=== PATIENT | female | born 1970 | race Caucasian/White ===

== ENCOUNTER 2019-11-28 07:10 | Outpatient (CLI) | payer OTHER, SELFPAY ==
[2019-11-28 07:29] LABS: Basophils Absolute Auto 0.1 K/mm3 (0.0-0.1); Basophils Percent Auto 0.9 % (0.2-1.2); Eosinophils Absolute Auto 0.1 K/mm3 (0-0.3); Eosinophils Percent Auto 1.7 % (0-4.4); Hematocrit 42.7 % (37.0-47.0); Hemoglobin 14.8 g/dL (12.0-15.0); Immature Granulocyte Absolute 0.02 K/mm3 (0.00-0.031); Immature Granulocyte Percent A 0.4 % (0-0.5); Lymphocytes Absolute Auto 1.69 K/mm3 (0.9-3.2); Lymphocytes Percent Auto 31.1 % (18.3-44.2); Mean Corpuscular HGB Conc 34.7 g/dl (32-36); Mean Corpuscular Hemoglobin 30.2 pg (26-34); Mean Corpuscular Volume 87.1 fl (80-100); Mean Platelet Volume 8.8 fl (7.4-10.4); Monocytes Absolute Auto 0.3 K/mm3 (0.1-0.6); Monocytes Percent Auto 6.3 % (2.6-8.5); Neutrophils Absolute Auto 3.3 K/mm3 (1.3-6.7); Neutrophils Percent Auto 59.6 % (45.5-73.1); Platelet Count Result 152 k/mm3 (150-375); Red Cell Distribution Width 12.3 % (11.5-14.5); White Blood Count 5.4 K/mm3 (4.5-10.0)
[2019-11-28 08:01] LABS: Alanine Aminotransferase 28 U/L (4-35); Albumin Level 4.2 g/dL (3.5-5.1); Alkaline Phosphatase 99 U/L (38-126); Aspartate Amino Transferase 30 U/L (14-36); Bilirubin,Total 1.3 mg/dL (0.2-1.3); Blood Urea Nitrogen 13 mg/dL (7-17); Carbon Dioxide 25 mmol/L (22-30); Chloride 106 mmol/L (98-107); Cholesterol 174 mg/dL (0-200); Estimated Glomerular Filt Rate 53; Glucose 111 mg/dL (65-105); HDL Direct 34 mg/dL; Potassium 4.2 mmol/L (3.4-5.0); Sodium 138 mmol/L (137-145); Triglycerides 285 mg/dL (<150)
[2019-11-28 08:12] LABS: LDL Cholesterol Direct 99 mg/dL
[2019-11-28 10:01] LABS: Free T4 Free Thyroxine 0.88 ng/mL (0.78-2.19)
== END 2019-11-28 07:11 | disposition home or self-care (01) ==
LOC: ANHLAB 07:13
PROVIDERS: PCP Internal Medicine; Visit Provider Internal Medicine
DX: E78.00 Pure hypercholesterolemia, unspecified (principal)
CPT/HCPCS: 36415; 80053; 80061; 84439; 84443; 85025

== ENCOUNTER 2020-01-08 09:52 | Outpatient (CLI) | payer OTHER, SELFPAY ==
[2020-01-08 10:56] LABS: Add Urine Microscopic? YES; Appearance Urine Clear (Clear); Bilirubin Urine Negative (Negative); Blood Urine Negative (Negative); Color Urine Yellow (Yellow); Glucose Urine UA Negative (Negative); Ketones Urine Negative (Negative); Leukocyte Esterase Ur Trace LEU/UL (Negative); Mucus Urine Rare /lpf; Nitrate Urine Negative (Negative); Protein Urine Negative (Negative); RBC Urine 0-2 /hpf (0-2); Specific Grav Ur 1.019 (1.001-1.035); Squamous Epithelial Cell Urine Rare /hpf (Few); Urobilinogen Urine Negative mg/dL (<2.0); WBC Urine 0-3 /hpf
== END 2020-01-08 09:53 | disposition home or self-care (01) ==
PROVIDERS: PCP Internal Medicine; Visit Provider Internal Medicine
DX: R30.9 Painful micturition, unspecified (principal)
CPT/HCPCS: 81001

== ENCOUNTER 2020-06-01 14:44 | Outpatient (CLI) | payer OTHER, SELFPAY ==
--- NOTE | ~2020-06-01 | MM_ITS ---
EXAMINATION: MM screening [facility] w julio HISTORY: Screening TECHNIQUE: Craniocaudal and mediolateral oblique 3-D tomosynthesis images were obtained and synthetic 2-D images were generated. CAD analysis was submitted and interpreted. COMPARISON: Comparison to multiple prior studies sequentially, with oldest reviewed study dated 06/29. BREAST PARENCHYMAL COMPOSITION: There are scattered areas of fibroglandular density. FINDINGS: There is a developing mass in the upper outer quadrant of the left breast measuring 5 mm. T here are stable benign-appearing bilateral breast masses otherwise. No suspicious calcifications or a rchitectural distortion. IMPRESSION: 1. Developing 5 mm left breast mass, upper outer quadrant. 2. Additional mammographic views and possible breast ultrasound are recommended. BI-RADS Category 0: Incomplete: Needs additional imaging evaluation. Reviewed, dictated and finalized at location A. IMPRESSION: 1. Developing 5 mm left breast mass, upper outer quadrant. 2. Additional mammographic views and possible breast ultrasound are recommended . BI-RADS Category 0: Incomplete: Needs additional imaging evaluation.
== END 2020-06-01 14:45 | disposition home or self-care (01) ==
LOC: ANHIMG 14:46
PROVIDERS: PCP Internal Medicine; Visit Provider Obstetrics & Gynecology
DX: Z12.31 Encounter for screening mammogram for malignant neoplasm of breast (principal); N63.21 Unspecified lump in the left breast, upper outer quadrant
CPT/HCPCS: 77063; 77067

== ENCOUNTER 2020-06-08 13:32 | Outpatient (CLI) | payer OTHER, SELFPAY ==
--- NOTE | ~2020-06-08 | MMUS_ITS ---
EXAMINATION: MM diagnostic mammo unilat LT, US breast LT limited HISTORY: Follow-up left breast mass TECHNIQUE: Additional 3-D tomosynthesis images of the left breast were performed and synthetic 2-D im ages were generated. CAD analysis was submitted and interpreted. High resolution limited left breast ultrasound was performed. COMPARISON: Comparison to multiple prior studies sequentially, with oldest reviewed study dated 06/29. BREAST PARENCHYMAL COMPOSITION: Breast composed of scattered areas of fibroglandular density. FINDINGS: MAMMOGRAPHIC FINDINGS: 5 mm circumscribed radiolucent mass in the upper outer quadrant of the left breast. No architectural distortion or suspicious calcifications. ULTRASOUND: Limited left breast ultrasound: Normal heterogeneous echotexture without focal solid or cystic mass. IMPRESSION: 1. Probable benign left breast mass. No definite sonographic correlate identified. 2. Recommend 6 month follow-up diagnostic left mammogram. BI-RADS category 3, probably benign findings. Reviewed, dictated and finalized at location A. IMPRESSION: 1. Probable benign left breast mass. No definite sonographic correlate identifi ed. 2. Recommend 6 month follow-up diagnostic left mammogram. BI-RADS category 3, probably benign findings.
== END 2020-06-08 13:33 | disposition home or self-care (01) ==
LOC: ANHIMG 13:33
PROVIDERS: PCP Internal Medicine; Visit Provider Obstetrics & Gynecology
DX: R92.8 Other abnormal and inconclusive findings on diagnostic imaging of breast (principal)
CPT/HCPCS: 76642; 77065

== ENCOUNTER 2020-06-20 10:35 | Outpatient (CLI) | payer OTHER, SELFPAY ==
[2020-06-20 11:01] LABS: Basophils Percent Auto 0.7 % (0.2-1.2); Eosinophils Absolute Auto 0.1 K/mm3 (0-0.3); Eosinophils Percent Auto 1.5 % (0-4.4); Hematocrit 42.5 % (37.0-47.0); Hemoglobin 15.1 g/dL (12.0-15.0); Immature Granulocyte Absolute 0.02 K/mm3 (0.00-0.031); Immature Granulocyte Percent A 0.3 % (0-0.5); Immature Platelet Fraction Pct 1.2 % (0.9-11.2); Lymphocytes Absolute Auto 1.63 K/mm3 (0.9-3.2); Lymphocytes Percent Auto 27.5 % (18.3-44.2); Mean Corpuscular HGB Conc 35.5 g/dl (32-36); Mean Corpuscular Hemoglobin 31.3 pg (26-34); Mean Corpuscular Volume 88.2 fl (80-100); Mean Platelet Volume 8.8 fl (7.4-10.4); Monocytes Absolute Auto 0.4 K/mm3 (0.1-0.6); Monocytes Percent Auto 6.9 % (2.6-8.5); Neutrophils Absolute Auto 3.7 K/mm3 (1.3-6.7); Neutrophils Percent Auto 63.1 % (45.5-73.1); Platelet Count Result 167 k/mm3 (150-375); Red Blood Count 4.82 M/mm3 (4.2-5.4); Red Cell Distribution Width 12.1 % (11.5-14.5); White Blood Count 5.9 K/mm3 (4.5-10.0)
[2020-06-20 11:06] LABS: Alanine Aminotransferase 26 U/L (4-35); Albumin Level 4.2 g/dL (3.5-5.1); Alkaline Phosphatase 96 U/L (38-126); Anion Gap 10 mmol/L (8-16); Aspartate Amino Transferase 26 U/L (14-36); Bilirubin,Total 1.4 mg/dL (0.2-1.3); Blood Urea Nitrogen 11 mg/dL (7-17); Calcium 8.9 mg/dL (8.4-10.2); Carbon Dioxide 24 mmol/L (22-30); Chloride 106 mmol/L (98-107); Cholesterol 178 mg/dL (0-200); Estimated Glomerular Filt Rate 53; Glucose 105 mg/dL (65-105); HDL Direct 32 mg/dL; Potassium 4.1 mmol/L (3.4-5.0); Sodium 140 mmol/L (137-145); Triglycerides 311 mg/dL (<150)
[2020-06-20 11:17] LABS: LDL Cholesterol Direct 98 mg/dL
[2020-06-20 11:36] LABS: Thyroid Stimulating Hormone 0.929 uIU/mL (0.465-4.680)
[2020-06-20 11:43] LABS: Free T4 Free Thyroxine 0.85 ng/mL (0.78-2.19)
== END 2020-06-20 10:36 | disposition home or self-care (01) ==
PROVIDERS: PCP Internal Medicine; Visit Provider Internal Medicine
DX: E78.00 Pure hypercholesterolemia, unspecified (principal)
CPT/HCPCS: 36415; 80053; 80061; 84439; 84443; 85025; 85055

== ENCOUNTER 2021-09-14 07:14 | Outpatient (CLI) | payer BC, SELFPAY ==
[2021-09-14 08:07] LABS: Glucose Fasting 130 mg/dL
[2021-09-17 03:21] LABS: Insulin Level Total 34.8 uIU/mL (<=19.6)
== END 2021-09-14 07:15 | disposition home or self-care (01) ==
PROVIDERS: PCP Internal Medicine; Visit Provider Internal Medicine
DX: E16.2 Hypoglycemia, unspecified (principal)
CPT/HCPCS: 36415; 82951; 82952; 83525

== ENCOUNTER 2022-08-05 10:39 | Emergency (ER) | payer BC, SELFPAY ==
[2022-08-05 10:48] LABS: Glucose Point of Care 80 mg/dl (65-105)
[2022-08-05 10:49] VITALS: BP 136/94; PULSE 90; RESP 16; TEMP 36.4; O2SAT 100
--- NOTE | 2022-08-05 11:02 | ED.RECABL ---
HPI - Recheck/Abnormal Lab/Rx General Chief Complaint: Recheck/Abnormal Lab/Rx Stated Complaint: glucose dropped 56-60 while working Time Seen by Provider: 08/05/22 10:53 History of Present Illness HPI narrative: 52-year-old female presents to the emergency room for evaluation of dizziness. Patient states that she has a pancreatic neoplasm for which she is followed by a GI physician over at [place]. Patient states she was diagnosed with this 6 months ago, and has been experiencing labile blood sugars. Patient states that she has frequently been experiencing drop in blood sugars. Patient states that she is normally able to manage this with juice or meal. States today the blood sugar dropped and she immediately became dizzy, which is different from the past where she gradually becomes dizzy and lightheaded. Related Data Allergies Allergy/AdvReac Type Severity Reaction Status Date / Time erythromycin base Allergy Mild Rash Verified 08/05/22 10:40 Sulfa (Sulfonamide Allergy Unknown Unknown Verified 08/05/22 10:40 Antibiotics) sulfanilamide Allergy Unknown Rash Verified 08/05/22 10:40 vancomycin Allergy Unknown Unknown Verified 08/05/22 10:40 Review of Systems Review of Systems: CONSTITUTIONAL: Denies fever, chills, or sweats. EYES: Denies visual changes, redness, or discharge. ENT: Denies rhinorrhea, congestion, sore throat, or otalgia. CARDIOVASCULAR: Denies chest pain, palpitations, or edema. RESPIRATORY: Denies cough or dyspnea. GASTROINTESTINAL: Denies abdominal pain, nausea, vomiting, or diarrhea. GENITOURINARY: Denies dysuria or hematuria. SKIN: Denies rash or itching. MUSCULOSKELETAL: Denies back pain, joint pain, or myalgia. NEUROLOGIC: Reports dizziness PSYCHIATRIC: Denies anxiety or depression. [facility] Family History Family History Other Family history of arthritis Family history of hypercholesterolemia Family history of kidney disease Social History Social History Smoking status: Never smoker Alcohol intake: current Exam Narrative: GENERAL: Well-appearing, well-nourished, no physical limitations, and in no acute distress. HEAD: Normocephalic, atraumatic. EYES: Conjunctivae normal, PERRLA and EOMI. CHEST: Clear to auscultation. No respiratory distress. No wheezes rales or rhonchi. HEART: Regular rate and rhythm. No murmur heard. Normal peripheral pulses. ABDOMEN: Soft, nontender, nondistended, normal active bowel sounds. EXTREMITIES: Normal range of motion. No edema. No clubbing or cyanosis SKIN: Warm, dry, no rash. No noted wounds NEURO: No focal deficits. Alert and oriented x3. MAEW. CN's II-XI intact bilaterally, normal gait PSYCH: Cooperative. Normal mood and affect. Course Vital Signs Vital signs: Vital Signs Temperature 36.4 C 08/05/22 10:49 Pulse Rate 90 08/05/22 10:49 Respiratory Rate 16 08/05/22 10:49 Blood Pressure 136/94 H 08/05/22 10:49 Pulse Oximetry 100 08/05/22 10:49 Oxygen Delivery Room Air 08/05/22 10:49 Temperature 36.4 C 08/05/22 10:49 Pulse Rate 90 08/05/22 10:49 Respiratory Rate 16 08/05/22 10:49 Blood Pressure 136/94 H 08/05/22 10:49 Pulse Oximetry 100 08/05/22 10:49 Oxygen Delivery Room Air 08/05/22 10:49 MDM - Recheck/Abnormal Lab/Rx Lab Data 08/05/22 11:36 08/05/22 11:36 Labs: Lab Results 08/05/22 08/05/22 08/05/22 Range/Units 10:45 11:36 11:36 WBC 7.4 (4.5-10.0) K/mm3 RBC 4.97 (4.2-5.4) M/mm3 Hgb 15.5 H (12.0-15.0) g/dL Hct 44.5 (37.0-47.0) % MCV 89.5 (80-100) fl MCH 31.2 (26-34) pg MCHC 34.8 (32-36) g/dl RDW 12.5 (11.5-14.5) % Plt Count 128 L (150-375) k/mm3 MPV 8.9 (7.4-10.4) fl Immature Gran % (Auto) 0.4 (0-0.5) % Neut % (Auto) 71.1 (45.5-73.1) % Lymph % (Auto) 20.4 (18.3-44.2) % [place] % (Auto) 6.0
[2022-08-05] MEDS: SODIUM CHLORIDE 0.9% IV 1,000 ML 999 ML IV CONT (11:24)
[2022-08-05 11:48] LABS: Basophils Absolute Auto 0.1 K/mm3 (0.0-0.1); Basophils Percent Auto 0.7 % (0.2-1.2); Eosinophils Absolute Auto 0.1 K/mm3 (0-0.3); Eosinophils Percent Auto 1.4 % (0-4.4); Hematocrit 44.5 % (37.0-47.0); Hemoglobin 15.5 g/dL (12.0-15.0); Immature Granulocyte Absolute 0.03 K/mm3 (0.00-0.031); Immature Granulocyte Percent A 0.4 % (0-0.5); Lymphocytes Percent Auto 20.4 % (18.3-44.2); Mean Corpuscular HGB Conc 34.8 g/dl (32-36); Mean Corpuscular Hemoglobin 31.2 pg (26-34); Mean Corpuscular Volume 89.5 fl (80-100); Mean Platelet Volume 8.9 fl (7.4-10.4); Monocytes Absolute Auto 0.4 K/mm3 (0.1-0.6); Neutrophils Absolute Auto 5.3 K/mm3 (1.3-6.7); Neutrophils Percent Auto 71.1 % (45.5-73.1); Platelet Count Result 128 k/mm3 (150-375); Red Blood Count 4.97 M/mm3 (4.2-5.4); Red Cell Distribution Width 12.5 % (11.5-14.5); White Blood Count 7.4 K/mm3 (4.5-10.0)
[2022-08-05 11:52] LABS: Alanine Aminotransferase 34 U/L (6-35); Albumin Level 4.9 g/dL (3.5-5.1); Alkaline Phosphatase 79 U/L (38-126); Anion Gap 9 mmol/L (8-16); Aspartate Amino Transferase 62 U/L (14-36); Bilirubin,Total 2.1 mg/dL (0.2-1.3); Blood Urea Nitrogen 17 mg/dL (7-17); Calcium 8.3 mg/dL (8.4-10.2); Carbon Dioxide 23 mmol/L (22-30); Chloride 104 mmol/L (98-107); Estimated CRCL calculation 59 ml/min; Estimated Glomerular Filt Rate 58; Glucose 101 mg/dL (65-110); Lipase 266 U/L (23-300); Potassium 4.8 mmol/L (3.4-5.0); Sodium 136 mmol/L (137-145)
[2022-08-05 12:51] LABS: Glucose Point of Care 95 mg/dl (65-105)
[2022-08-05 13:39] LABS: Hemoglobin A1C 5.4 % (<5.7)
== END 2022-08-05 13:20 | disposition home or self-care (01) ==
PROVIDERS: Emergency Provider Nurse Practitioner Family; PCP Internal Medicine
DX: E16.1 Other hypoglycemia (principal); D49.0 Neoplasm of unspecified behavior of digestive system
CPT/HCPCS: 36415; 80053; 82948; 83036; 83690; 85025; 96360; 96361; 99283; J7030

== ENCOUNTER 2023-01-30 12:57 | Inpatient (IN) | payer BC, SELFPAY ==
--- NOTE | ~2023-01-30 | XR_ITS ---
Supine portable view of the abdomen Clinical history: NG tube placement Findings: NG tube is in satisfactory position. Bowel gas pattern is nonspecific. No evidence for obst ruction or free air. No abnormal mass lesion or calcification is seen. Cholecystectomy clips noted. O sseous structures are intact. Impression: NG tube in place. Nonspecific bowel gas pattern. Reviewed, dictated and finalized at location . Impression: NG tube in place. Nonspecific bowel gas pattern.
--- NOTE | ~2023-01-30 | CT_ITS ---
EXAMINATION: CT abdomen pelvis w con DATE: 01/30/2023 15:34 INDICATION: Right lower quadrant abdominal pain. TECHNIQUE: Computed tomography (CT) of the abdomen and pelvis was performed with 100 mL Omnipaque 350 intravenous contrast. Automated exposure control and iterative reconstruction technique were employe d. The dose-length product was 732.52 mGy-cm. COMPARISON: CT abdomen and pelvis 10/07/2009 FINDINGS: The visualized portions of the lung bases demonstrate mild atelectasis. No pleural effusion . The heart size is normal. No pericardial effusion. The liver is normal. There are changes of cholec ystectomy. The spleen, pancreas, adrenal glands, and kidneys are normal. The appendix is fluid-filled with diameter of 9 mm. There is fat stranding adjacent to the tip of the appendix. There are no path ologically enlarged lymph nodes. There is no free intraperitoneal fluid. There is mild thoracic and l umbar spondylosis. IMPRESSION: 1. Acute appendicitis. Reviewed, dictated and finalized at location A. IMPRESSION: 1. Acute appendicitis.
--- NOTE | ~2023-01-30 | XR_ITS ---
EXAMINATION: XR abdomen/kub 1V INDICATION: Nausea and vomiting TECHNIQUE: Supine view of the abdomen is obtained. COMPARISON: 01/31/2023 FINDINGS: The bowel gas pattern is nonspecific. No dilated loops of bowel are evident. Skin verito a re noted. Surgical clips in the right upper quadrant are likely from prior cholecystectomy. No free i ntraperitoneal gas is identified. IMPRESSION: 1. Nonspecific bowel gas pattern. Reviewed, dictated and finalized at location A.
[2023-01-30 13:10] VITALS: BP 149/90; PULSE 83; RESP 17; TEMP 37.2; O2SAT 97
[2023-01-30 13:38] LABS: Basophils Percent Auto 0.5 % (0.2-1.2); Eosinophils Absolute Auto 0.1 K/mm3 (0-0.3); Eosinophils Percent Auto 1.5 % (0-4.4); Hematocrit 43.7 % (37.0-47.0); Hemoglobin 15.5 g/dL (12.0-15.0); Immature Granulocyte Absolute 0.02 K/mm3 (0.00-0.031); Immature Granulocyte Percent A 0.3 % (0-0.5); Lymphocytes Absolute Auto 1.41 K/mm3 (0.9-3.2); Lymphocytes Percent Auto 18.9 % (18.3-44.2); Mean Corpuscular HGB Conc 35.5 g/dl (32-36); Mean Corpuscular Hemoglobin 30.9 pg (26-34); Mean Corpuscular Volume 87.2 fl (80-100); Mean Platelet Volume 8.6 fl (7.4-10.4); Monocytes Absolute Auto 0.5 K/mm3 (0.1-0.6); Monocytes Percent Auto 6.4 % (2.6-8.5); Neutrophils Absolute Auto 5.4 K/mm3 (1.3-6.7); Neutrophils Percent Auto 72.4 % (45.5-73.1); Platelet Count Result 139 k/mm3 (150-375); Red Blood Count 5.01 M/mm3 (4.2-5.4); Red Cell Distribution Width 12.6 % (11.5-14.5); White Blood Count 7.5 K/mm3 (4.5-10.0)
[2023-01-30 13:46] LABS: Appearance Urine Clear (Clear); Bacteria Urine None Seen /hpf; Bilirubin Urine Negative (Negative); Blood Urine Negative (Negative); Color Urine Yellow (Yellow); Glucose Urine UA Negative (Negative); Ketones Urine Negative (Negative); Leukocyte Esterase Ur Trace LEU/UL (Negative); Nitrate Urine Negative (Negative); Non Pathogenic Casts 0-2; Protein Urine Negative (Negative); RBC Urine 0-2 /hpf (0-2); Specific Grav Ur 1.005 (1.001-1.035); Squamous Epithelial Cell Urine None seen /hpf (Few); Urobilinogen Urine 0.2 mg/dL (<2.0); WBC Urine 0-5 /hpf; pH Urine 6.5 (5.0-9.0)
[2023-01-30 13:52] LABS: Alanine Aminotransferase 30 U/L (6-35); Albumin Level 4.6 g/dL (3.5-5.1); Alkaline Phosphatase 111 U/L (38-126); Anion Gap 8 mmol/L (8-16); Aspartate Amino Transferase 26 U/L (14-36); Bilirubin,Total 1.4 mg/dL (0.2-1.3); Blood Urea Nitrogen 15 mg/dL (7-17); Calcium 8.8 mg/dL (8.4-10.2); Carbon Dioxide 25 mmol/L (22-30); Chloride 104 mmol/L (98-107); Estimated CRCL calculation 54 ml/min; Estimated Glomerular Filt Rate 52; Glucose 142 mg/dL (65-110); Lipase 109 U/L (23-300); Potassium 4.1 mmol/L (3.4-5.0); Sodium 137 mmol/L (137-145)
[2023-01-30 14:07] LABS: Add Urine Microscopic? YES
[2023-01-30 16:52] VITALS: BP 157/95; PULSE 91; RESP 18; O2SAT 100
[2023-01-30] MEDS: PIPERACILLN/TAZ 3.375GM/NS50ML 3.375 GM/50 ML BAG IVPB (17:28)
[2023-01-30] MEDS: MORPHINE SULFATE (*CRX) 4 MG/ML INJ IV PUSH ×2 (17:36→18:58)
--- NOTE | 2023-01-30 17:52 | ED.GENADULT ---
HPI - General Adult General Chief complaint: Abdominal Pain Stated complaint: mid abdominal pain radiating to back x 4 days Time Seen by Provider: 01/30/23 15:12 History of Present Illness HPI narrative: Patient is a 52-year-old female who presents ER with abdominal discomfort. Ongoing for 4 days and radiates into the back. Fullness has increased to more cramping. No alleviating factors. Worse with moving and bending. Has history of bowel obstruction in the past and is concerned she may have another 1. She has had normal bowel movements but has not had any flatus in the last couple days. Denies fevers or chills or sweats. No urinary symptoms. Related Data Home Medications Medication Instructions Recorded Confirmed simvastatin 10 mg tablet 10 mg PO HS 01/30/23 01/30/23 Allergies Allergy/AdvReac Type Severity Reaction Status Date / Time erythromycin base Allergy Mild Rash Verified 01/30/23 19:00 Sulfa (Sulfonamide Allergy Unknown Unknown Verified 01/30/23 19:00 Antibiotics) sulfanilamide Allergy Unknown Rash Verified 01/30/23 19:00 vancomycin Allergy Unknown Unknown Verified 01/30/23 19:00 Review of Systems Review of Systems: All systems reviewed & are unremarkable except as noted in HPI and below Constitutional: Constitutional: Denies chills and Denies fever(s) Gastrointestinal: Gastrointestinal: Reports abdominal pain, Denies constipation, Denies diarrhea, Denies nausea and Denies vomiting Genitourinary: Genitourinary: Denies dysuria, Denies pelvic pain and Denies urinary urgency PMFSH Past Medical History Medical History (Updated 01/30/23 @ 23:13 by Elmer Ortega MD) History of small bowel obstruction Hypercholesterolemia Surgical History Surgical History (Updated 01/30/23 @ 23:13 by Elmer Ortega MD) History of cholecystectomy Family History Family History Other Family history of arthritis Family history of hypercholesterolemia Family history of kidney disease Social History Social History Smoking status: Never smoker Alcohol intake: current Exam Narrative: GENERAL: Well-appearing, well-nourished, and in no acute distress. HEAD: Normocephalic, atraumatic. ENT: Mucous membranes moist. CHEST: Clear to auscultation. No respiratory distress. HEART: Regular rate and rhythm. Normal peripheral pulses. ABDOMEN: Soft, tender palpation right lower quadrant with guarding, nondistended, normal active bowel sounds. EXTREMITIES: Normal range of motion. No edema. SKIN: Warm, dry, no rash. NEURO: Alert and oriented x3. PSYCH: Normal mood and affect Course Course Emergency Course: Patient never sought operation at [place] as she has had significant complications from previous surgeries and is nervous she may not do well. After prolonged conversation with general surgery she is opted to stay here to receive IV antibiotics and an operative procedure tonight. Dr. Quintana will admit the patient to his service until she can go to the OR. Vital Signs Vital signs: Vital Signs Temperature 98.9 F 01/30/23 13:10 Pulse Rate 83 01/30/23 13:10 Respiratory Rate 17 01/30/23 13:10 Blood Pressure 149/90 H 01/30/23 13:10 Pulse Oximetry 97 01/30/23 13:10 Oxygen Delivery Room Air 01/30/23 13:10 Temperature 98.9 F 01/30/23 13:10 Pulse Rate 91 01/30/23 16:52 Respiratory Rate 18 01/30/23 16:52 Blood Pressure 157/95 H 01/30/23 16:52 Pulse Oximetry 100 01/30/23 16:52 Oxygen Delivery Room Air 01/30/23 13:10 Medical Decision Making Vital Signs Vital Signs: Vital Signs Temperature 98.9 F 01/30/23 13:10 Pulse Rate 83 01/30/23 13:10 Respiratory Rate 17 01/30/23 13:10 Blood Pressure 149/90 H 01/30/23 13:10 Pulse Oximetry 97 01/30/23 13:10 Oxygen Delivery Room Air 01/30/23 13:10 Temperature 98.9 F 01/30/23
[2023-01-30] MEDS: SODIUM CHLORIDE 0.9% IV 1,000 ML 150 ML IV CONT (18:25)
[2023-01-30] MEDS: LORazepam INJ (*CRX) 2 MG/ML VIAL 0.5 MG IV PUSH (18:25)
--- NOTE | 2023-01-30 18:49 | ADMGEN ---
This patient, Lacie Gaitan, was admitted to Medical Room 248-. Patient/family oriented to hospital policies and general routines including ID bracelet, bed and alarms, visiting hours, pain management, procedures, bathroom and other care routines, personal items, smoking policy, room service/diet, and visiting hours. Information on how to activate the Rapid Response Team has been discussed. Patient/Family are encouraged to report perceived risks to care and to ask questions if they do not understand what they are told or what they should do.
--- NOTE | 2023-01-30 19:10 | PC.NURSE ---
pt to surgery via bed
--- NOTE | 2023-01-30 19:29 | WPDANESEPPF ---
Anes - Initial Pre Proc Eval Procedure: Operation Date: 01/30/23 19:30 Proposed Procedures p Laparoscopic Appendectomy - Monique Quintana MD Date/Time: 01/30/23 19:29 Surgeon: Monique Quintana MD Pre Op Diagnosis: Appendicitis Patient Data Age: 52 Gender: F Height: 1.57 m Weight: 85.73 kg Last Vital Signs Temp 37.2 C 01/30/23 13:10 Pulse 91 01/30/23 16:52 Resp 18 01/30/23 16:52 BP 157/95 H 01/30/23 16:52 Pulse Ox 100 01/30/23 16:52 O2 Del Method Room Air 01/30/23 13:10 Allergies Allergy/AdvReac Type Severity Reaction Status Date / Time erythromycin base Allergy Mild Rash Verified 01/30/23 19:00 Sulfa (Sulfonamide Allergy Unknown Unknown Verified 01/30/23 19:00 Antibiotics) sulfanilamide Allergy Unknown Rash Verified 01/30/23 19:00 vancomycin Allergy Unknown Unknown Verified 01/30/23 19:00 Home Medications Medication Instructions Recorded Confirmed Type simvastatin 10 mg tablet 10 mg PO HS 01/30/23 01/30/23 History Laboratory Tests 01/30/23 01/30/23 13:18 13:22 WBC 7.5 K/mm3 (4.5-10.0) RBC 5.01 M/mm3 (4.2-5.4) Hgb 15.5 H g/dL (12.0-15.0) Hct 43.7 % (37.0-47.0) MCV 87.2 fl (80-100) MCH 30.9 pg (26-34) MCHC 35.5 g/dl (32-36) RDW 12.6 % (11.5-14.5) Plt Count 139 L k/mm3 (150-375) MPV 8.6 fl (7.4-10.4) Immature Gran % (Auto) 0.3 % (0-0.5) Neut % (Auto) 72.4 % (45.5-73.1) Lymph % (Auto) 18.9 % (18.3-44.2) [place] % (Auto) 6.4 % (2.6-8.5) Eos % (Auto) 1.5 % (0-4.4) Baso % (Auto) 0.5 % (0.2-1.2) Lymph # (Auto) 1.41 K/mm3 (0.9-3.2) [place] # (Auto) 0.5 K/mm3 (0.1-0.6) Eos # (Auto) 0.1 K/mm3 (0-0.3) Baso # (Auto) 0.0 K/mm3 (0.0-0.1) Abs Immat Gran (auto) 0.02 K/mm3 (0.00-0.031) Absolute Neuts (auto) 5.4 K/mm3 (1.3-6.7) Absolute Nucleated RBC 0.0 K/mm3 (0.0-0.012) Nucleated RBC % 0.0 % (0.0-0.2) Sodium 137 mmol/L (137-145) Potassium 4.1 mmol/L (3.4-5.0) Chloride 104 mmol/L (98-107) Carbon Dioxide 25 mmol/L (22-30) Anion Gap 8 mmol/L (8-16) BUN 15 mg/dL (7-17) Creatinine 1.10 H mg/dL (0.7-1.0) Estim Creat Clear Calc 54 ml/min Estimated GFR 52 L (59 - ) Glucose 142 H mg/dL (65-110) Calcium 8.8 mg/dL (8.4-10.2) Total Bilirubin 1.4 H mg/dL (0.2-1.3) AST 26 U/L (14-36) ALT 30 U/L (6-35) Alkaline Phosphatase 111 U/L (38-126) Total Protein 7.0 g/dL (6.3-8.2) Albumin 4.6 g/dL (3.5-5.1) Lipase 109 U/L (23-300) Urine Color Yellow (Yellow) Urine Appearance Clear (Clear) Urine pH 6.5 (5.0-9.0) Ur Specific [place] 1.005 (1.001-1.035) Urine Protein Negative mg/dL (Negative) Urine Glucose (UA) Negative mg/dL (Negative) Urine Ketones Negative mg/dL (Negative) Ur Blood (Man) Negative (Negative) Urine Nitrate Negative (Negative) Urine Bilirubin Negative (Negative) Urine Urobilinogen 0.2 mg/dL (<2.0) Leukocyte Esterase Rfl Trace H CANDIDA/UL (Negative) Urine RBC 0-2 /hpf (0-2) Urine WBC 0-5 /hpf Ur Squamous Epith Cells None seen /hpf (Few) Urine Bacteria None seen /hpf Urine Casts 0-2 Patient hx anesthesia problems: post op nausea/vomiting Family hx anesthesia problems: none Results Review: All pre-operative results and documents have been reviewed as part of the pre-operative evaluation. [facility] Family History Family History Other Family history of arthritis Family history of hypercholesterolemia Family history of kidney disease Social History Social History (Reviewed 08/05/22 @ 11:04 by Jacinto Pham
[2023-01-30] MEDS: SCOPOLAMINE 1.5 MG PATCH TRANSDERM (19:35)
[2023-01-30] MEDS: LACTATED RINGERS 1,000 ML 30 ML IV CONT ×3 (19:35→23:59)
--- NOTE | 2023-01-30 19:49 | PM.IMHP ---
H&P: HPI History of Present Illness Date/Time: 01/30/23 19:49 Chief Complaint: acute appendicitis Narrative: 52 y/o F presenting to ED c/o lower abd pain c radiation to her back over last 4 days. Pt reports pain has been progressively worsening and she has had decreased appetite. Pt reports normal bowel fxn. Pt denies any f/c, n/v. Pt has had extensive past surgical history from complications from cholecystectomy 20+ yrs ago. Review of Systems Constitutional: Constitutional: Reports as per HPI, Denies anorexia, Denies chills, Denies fever(s), Denies malaise, Reports poor appetite, Denies weakness, Denies weight gain and Denies weight loss Eyes: Eyes: Reports as per HPI and Reports no additional eye complaints ENT: Reports system reviewed and no additional complaints, except as documented Cardiovascular: Cardiovascular: Reports no additional cardiovascular complaints Respiratory: Respiratory: Reports no additional respiratory complaints Gastrointestinal: Gastrointestinal: Reports as per HPI, Reports abdominal pain, Reports GI cramping, Reports early satiety, Denies nausea and Denies vomiting Genitourinary: Genitourinary: Reports no additional female genitourinary complaints Musculoskeletal: Musculoskeletal: Reports no additional musculoskeletal complaints Integumentary/Breasts: Skin/Breast: Reports system reviewed and no additional complaints, except as docu Neurologic: Reports system reviewed and no additional complaints, except as documented Psychiatric: Psychiatric: Reports no additional psychiatric complaints Endocrine: Endocrine: Reports no additional endocrine complaints Hematologic/Lymphatic: Hematologic/Lymphatic: Reports no additional hematologic/lymphatic complaints Allergic/Immunologic: Allergic/Immunologic: Reports no additional allergic/immunologic complaints [facility] Family History Family History Other Family history of arthritis Family history of hypercholesterolemia Family history of kidney disease Social History Social History Smoking status: Never smoker Alcohol intake: current Comments PMH - hyperlipidemia, gangrenous cholecystitis PSH - multiple abd surgeries secondary to complicated cholecystectomy Meds Home Medications and Allergies Home Medications Medication Instructions Recorded Confirmed Type simvastatin 10 mg tablet 10 mg PO HS 01/30/23 01/30/23 History Allergies Allergy/AdvReac Type Severity Reaction Status Date / Time erythromycin base Allergy Mild Rash Verified 01/30/23 19:00 Sulfa (Sulfonamide Allergy Unknown Unknown Verified 01/30/23 19:00 Antibiotics) sulfanilamide Allergy Unknown Rash Verified 01/30/23 19:00 vancomycin Allergy Unknown Unknown Verified 01/30/23 19:00 Vital Signs Vital Signs - 24 hr 01/30/23 13:10 01/30/23 16:52 Temperature 37.2 C Pulse Rate 83 91 Respiratory Rate 17 18 Blood Pressure 149/90 H 157/95 H Pulse Oximetry 97 100 Oxygen Delivery Room Air Exam Const: General: cooperative, no acute distress, uncomfortable and obese HENMT: Head: normal to inspection, normocephalic and atraumatic Eyes: General: appearance normal, both eyes and all related structures Neck: Neck: normal visual inspection, full ROM and no lymphadenopathy Resp: Effort & Inspection: normal respiratory effort Auscultation: clear to auscultation bilaterally Cardio: Rate: regular rate Rhythm: regular rhythm GI: Inspection: normal to inspection and non-distended GI Palp: Yes abdominal tenderness, Yes Soft to palpation, Yes Tenderness to palpation present (GI), No Guarding due to palpation present (GI) and No Rigid due to palpation Skin: General skin exam: normal color and no rashes or lesions noted Neuro: General: patient oriented x3 and CN's II-XI intact bilaterally Extrem: General: normal to inspection and full ROM Psych: Appe
--- NOTE | 2023-01-30 19:58 | WPDHPUPDATE1 ---
History and Physical Update Update Date/Time: 01/30/23 19:58 History and Physical has been reviewed, including an updated exam of the patient. There are NO changes in the patient's condition. Risks, benefits, and alternatives have been discussed and questions answered. Patient agrees to proceed with procedure.
[2023-01-30] MEDS: BUPIVACAINE/EPINEPHRINE 0.5% 50 ML VIAL 30 ML INFILTRATE (20:11)
[2023-01-30 23:35] VITALS: BP 142/75; PULSE 81; RESP 16; TEMP 36.1; O2SAT 100
[2023-01-30 23:50] VITALS: BP 124/81; PULSE 122; RESP 20; O2SAT 100
[2023-01-30] MEDS: fentaNYL CITRATE INJ (*CRX) 100 MCG/2 ML VIAL 25 MCG IV PUSH (23:58)
[2023-01-31] VITALS (27 sets, daily range): BP systolic 116–162; BP diastolic 56–89; PULSE 85–110; RESP 12–21; TEMP 35.9–36.9; O2SAT 93–100; BMI 36.3; BMI 36.6
[2023-01-31] MEDS: fentaNYL CITRATE INJ (*CRX) 100 MCG/2 ML VIAL 25 MCG IV PUSH ×4 (00:02→00:24)
--- NOTE | 2023-01-31 00:06 | W.PM.PROC2 ---
Procedure Note - Detailed Date of Procedure 01/31/23 Pre-op Diagnosis Acute appendicitis Post-op Diagnosis Same ( acute appendicitis, hostile abdomen) Procedure Performed laparoscopic converted to open appendectomy, extensive lysis of adhesions of approximately 2-1/2 hours, small-bowel resection Surgeon Monique Quintana MD Balance Staff Inspector Jim Anesthesia General Indications 52-year-old female presenting to the emergency department with lower abdominal pain. Workup, including CT, was significant for acute appendicitis. The patient is noted to have an extensive abdominal surgical history and a long discussion was had with the patient and family regarding appendectomy versus conservative management. Decision was made to proceed with appendectomy. Findings Extremely hostile abdomen, unable to visualize anatomy during laparoscopic procedure so subsequently converted to open, devascularization of a small segment of small intestine during lysis of adhesions requiring small-bowel resection Description of Procedure The patient was taken to the operating room and placed in the supine position. After adequate induction of general anesthesia, the patient was prepped and draped in the normal sterile fashion. A time-out was then done to verify the patient's identity, as well as the procedure being performed. I began by making a 5 mm incision left mid abdomen, away from her previous incisions. I then placed a Veress needle into the peritoneal cavity and CO2 gas was insufflated. After adequate pneumoperitoneum was achieved, the Veress needle was removed a 5 mm Optiview trocar was placed under visualization. I then placed the laparoscopic through this trocar site and was unable to visualize any relevant anatomy. There was noted to be extensive adhesions to the anterior abdominal wall. Given this finding, I tried to place a port in the right mid abdomen. Again I entered the abdomen using an Optiview trocar under visualization. Unfortunately I was again unable to visualize any relevant anatomy as there was noted to be extensive adhesions on this side of the abdomen as well. At this point, conversion open procedure was decided. I began by making a incision in the right lower quadrant at McBurney's point. This was take taken down to the level of the fascia. Anterior fascia was opened and the abdominal muscles were split in the direction of its their fibers. I then opened the posterior fascia and gained access into the peritoneal cavity. There was noted to be a matted small bowel in this area and an extensive lysis of adhesions was done. I was unable to palpate the appendix or the cecum through this incision. The small intestine was noted to be very tethered and adhesed in this area. After approximately 1 hour of lysis of adhesions of the small bowel in this area, the decision was made to do a midline laparotomy. A midline laparotomy was done through her previous incision to gain access again into the peritoneal cavity. At this point I also called my partner, Dr. Derik Fernandez to assist me in this case given the complexity. Again upon entering the abdomen, this was noted to be very hostile as the small bowel was matted and adhesed to the anterior abdominal wall and pelvis. A extensive lysis of adhesions was then done to free up the small intestine, as we were unable to identify the cecum given the amount of adhesions of the small intestine. After approximately 90 additional minutes of lysis of adhesions, we had the entirety of the small bowel freed up. The cecum was noted to be in the right pelvis. Upon freeing up the cecum, we were able to identify the appendix. The appendix was noted to be injected inflamed and dilated, especially towards the tip. We dissected the appendix free of its adhesions and were able to create a window between the mesoappendix and the base of the appendix. At this point the mesoappendix was transected and tied off. The base of the appendix with the
[2023-01-31] MEDS: LACTATED RINGERS 1,000 ML 100 ML IV CONT ×2 (01:36→14:06)
--- NOTE | 2023-01-31 01:45 | PC.NURSE ---
0125 BACK TO ROOM PER BED. O2 2L NC, NG TO LEFT NARE
[2023-01-31] MEDS: ceFAZolin 1 GM/NS 50 ML 1 GM/50 ML BAG IVPB ×2 (02:20→10:30)
[2023-01-31] MEDS: MORPHINE SULFATE (*CRX) 4 MG/ML INJ IV PUSH ×3 (04:27→10:36)
[2023-01-31 06:11] LABS: Basophils Percent Auto 0.2 % (0.2-1.2); Hematocrit 41.4 % (37.0-47.0); Hemoglobin 14.2 g/dL (12.0-15.0); Immature Granulocyte Absolute 0.06 K/mm3 (0.00-0.031); Immature Granulocyte Percent A 0.4 % (0-0.5); Lymphocytes Absolute Auto 0.42 K/mm3 (0.9-3.2); Lymphocytes Percent Auto 2.6 % (18.3-44.2); Mean Corpuscular HGB Conc 34.3 g/dl (32-36); Mean Corpuscular Hemoglobin 30.5 pg (26-34); Mean Platelet Volume 8.9 fl (7.4-10.4); Monocytes Absolute Auto 1.1 K/mm3 (0.1-0.6); Monocytes Percent Auto 6.4 % (2.6-8.5); Neutrophils Absolute Auto 14.9 K/mm3 (1.3-6.7); Neutrophils Percent Auto 90.4 % (45.5-73.1); Platelet Count Result 155 k/mm3 (150-375); Red Blood Count 4.65 M/mm3 (4.2-5.4); Red Cell Distribution Width 12.9 % (11.5-14.5); White Blood Count 16.5 K/mm3 (4.5-10.0)
[2023-01-31 06:24] LABS: Anion Gap 9 mmol/L (8-16); Blood Urea Nitrogen 13 mg/dL (7-17); Calcium 8.1 mg/dL (8.4-10.2); Carbon Dioxide 25 mmol/L (22-30); Chloride 104 mmol/L (98-107); Estimated CRCL calculation 51 ml/min; Estimated Glomerular Filt Rate 47; Glucose 210 mg/dL (65-110); Potassium 4.9 mmol/L (3.4-5.0); Sodium 138 mmol/L (137-145)
--- NOTE | 2023-01-31 07:34 | P.PNAN_ITS ---
Anes - Prog Note Post-Op Date/Time: 01/31/23 07:34 Vital Signs: Last Vital Signs Temp 36.4 C L 01/31/23 04:23 Pulse 102 H 01/31/23 04:23 Resp 20 01/31/23 04:23 BP 135/74 01/31/23 04:23 Pulse Ox 99 01/31/23 04:23 O2 Del Method Nasal Cannula 01/31/23 01:49 O2 Flow Rate 2 01/31/23 01:49 Pain Score (VAS): 1 I/O: Intake & Output 01/30/23 01/30/23 01/31/23 15:59 23:59 07:59 Intake Total 1150 450 Output Total 610 Balance 1150 -160 Laboratory Tests 01/31/23 05:36 01/31/23 05:36 01/30/23 01/30/23 01/31/23 13:18 13:22 05:36 WBC 7.5 16.5 H RBC 5.01 4.65 Hgb 15.5 H 14.2 Hct 43.7 41.4 MCV 87.2 89.0 MCH 30.9 30.5 MCHC 35.5 34.3 RDW 12.6 12.9 Plt Count 139 L 155 MPV 8.6 8.9 Immature Gran % (Auto) 0.3 0.4 Neut % (Auto) 72.4 90.4 H Lymph % (Auto) 18.9 2.6 L [place] % (Auto) 6.4 6.4 Eos % (Auto) 1.5 0.0 Baso % (Auto) 0.5 0.2 Lymph # (Auto) 1.41 0.42 L [place] # (Auto) 0.5 1.1 H Eos # (Auto) 0.1 0.0 Baso # (Auto) 0.0 0.0 Abs Immat Gran (auto) 0.02 0.06 H Absolute Neuts (auto) 5.4 14.9 H Absolute Nucleated RBC 0.0 0.0 Nucleated RBC % 0.0 0.0 Sodium 137 138 Potassium 4.1 4.9 Chloride 104 104 Carbon Dioxide 25 25 Anion Gap 8 9 BUN 15 13 Creatinine 1.10 H 1.20 H Estim Creat Clear Calc 54 51 Estimated GFR 52 L 47 L Glucose 142 H 210 H Calcium 8.8 8.1 L Total Bilirubin 1.4 H AST 26 ALT 30 Alkaline Phosphatase 111 Total Protein 7.0 Albumin 4.6 Lipase 109 Urine Color Yellow Urine Appearance Clear Urine pH 6.5 Ur Specific [place] 1.005 Urine Protein Negative Urine Glucose (UA) Negative Urine Ketones Negative Ur Blood (Man) Negative Urine Nitrate Negative Urine Bilirubin Negative Urine Urobilinogen 0.2 Leukocyte Esterase Rfl Trace H Urine RBC 0-2 Urine WBC 0-5 Ur Squamous Epith Cells None seen Urine Bacteria None seen Urine Casts 0-2 Patient Feedback: Patient satisfied with anesthetic care.
--- NOTE | 2023-01-31 10:29 | PM.PNGS ---
Progress Note: A&P Assessment and Plan (1) Acute appendicitis: Code(s): K35.80 - Unspecified acute appendicitis Status: Acute Assessment and Plan: will start Morphine SUPERVISOR SPEECH, get PICC line and start TPN as there is anticipated prolonged ileus, cont NG decompression, encourage OOB/IS, will get PT/OT Subjective Subjective Date/Time Seen: 01/31/23 10:29 Interval history: c/o intense abd spasms, cramping Review of Systems Review of Systems: All systems reviewed & are unremarkable except as noted in HPI and below Exam Const: General: cooperative, acute distress moderate and uncomfortable Resp: Auscultation: clear to auscultation bilaterally Cardio: Rate: regular rate Rhythm: regular rhythm GI: Inspection: normal to inspection, distended and incision GI Palp: Yes abdominal tenderness, Yes Soft to palpation, Yes Tenderness to palpation present (GI), No Guarding due to palpation present (GI) and No Rigid due to palpation Objective Data Vital Signs Vital Signs: Vital Signs - 24 hr 01/30/23 13:10 01/30/23 16:52 01/30/23 23:35 Temperature 37.2 C 36.1 C L Pulse Rate 83 91 81 Respiratory Rate 17 18 16 Blood Pressure 149/90 H 157/95 H 142/75 H Pulse Oximetry 97 100 100 Oxygen Delivery Room Air Simple Face Mask Oxygen Flow Rate 8 01/30/23 23:50 01/31/23 00:06 01/31/23 00:20 Temperature Pulse Rate 122 H 101 H 110 H Respiratory Rate 20 14 16 Blood Pressure 124/81 146/89 H 162/79 H Pulse Oximetry 100 100 95 Oxygen Delivery Simple Face Mask Simple Face Mask Room Air Oxygen Flow Rate 8 8 01/31/23 00:35 01/31/23 00:50 01/31/23 01:05 Temperature Pulse Rate 109 H 106 H 103 H Respiratory Rate 15 14 12 Blood Pressure 147/77 H 142/75 H 140/82 Pulse Oximetry 96 93 99 Oxygen Delivery Room Air Room Air Nasal Cannula Oxygen Flow Rate 2 01/31/23 01:32 01/31/23 01:49 01/31/23 01:52 Temperature 36.3 C L 36.4 C Pulse Rate 100 98 Respiratory Rate 18 21 H Blood Pressure 144/74 H 117/61 Pulse Oximetry 99 99 100 Oxygen Delivery Nasal Cannula Oxygen Flow Rate 2 01/31/23 02:32 01/31/23 04:23 01/31/23 08:07 Temperature 36.4 C L 36.4 C L Pulse Rate 96 102 H Respiratory Rate 20 20 Blood Pressure 133/76 135/74 Pulse Oximetry 99 99 95 Oxygen Delivery Nasal Cannula Oxygen Flow Rate 3 01/31/23 08:59 01/31/23 09:01 Temperature 35.9 C L 35.9 C L Pulse Rate 91 91 Respiratory Rate 16 16 Blood Pressure 127/66 127/66 Pulse Oximetry 98 98 Oxygen Delivery Oxygen Flow Rate Intake/Output Intake/Output: Intake & Output 01/28/23 01/29/23 01/30/23 01/31/23 23:59 23:59 23:59 23:59 Intake Total 1150 450 Output Total 610 Balance 1150 -160 Meds/Results Medications: Active Medications Generic Name Dose Route Start Last Admin Trade Name Freq PRN Reason Stop Dose Admin Alvimopan 12 mg 02/01/23 09:00 Alvimopan 12 Mg Capsule PO 02/08/23 08:59 Q12HR JOHN Enoxaparin Sodium 40 mg 01/31/23 09:00 Enoxaparin 40 Mg/0.4 Ml Syringe SUB-Q DAILY JOHN Famotidine 20 mg 01/31/23 09:00 Famotidine 20 Mg/2 Ml Vial IV PUSH Q12HR JOHN Lactated Ringer's 1,000 mls @ 100 mls/hr 01/31/23 01:10 01/31/23 01:36 Lr - Lactated Ringers Iv IV CONT 100 mls/hr .Q10H JOHN Administration Morphine Sulfate 30 mg in 30 mls @ 0 mls/hr 01/31/23 10:26 Morphine Sulfate Meat Butcher IV CONT PRN PRN SUPERVISOR SPEECH Management Protocol 0 MG/HR Lidocaine HCl 5 ml 01/31/23 10:27 Lidocaine Hcl 1% Pf Inj 5 Ml Vial INFILTRATE 01/31/23 10:28 ONCE ONE Morphine Sulfate 2 mg 01/31/23 01:10 Morphine Sulfate (*Crx) 2 Mg/Ml Inj IV PUSH Q2H PRN Pain Rated 4-6 Morphine Sulfate 4 mg 01/31/23 01:10 01/31/23 08:03 Morphine Sulfate (*Crx) 4 Mg/Ml Inj IV PUSH 4 mg Q2H PRN Administration Pain Rated 7-10 Naloxone HCl 0.1 mg 01/31/23 01:10 Naloxone Hcl 0.4 Mg/Ml Vial IV PUSH Q2M PRN Opiate Reversal
[2023-01-31] MEDS: ENOXAPARIN 40 MG/0.4 ML SYRINGE SUB-Q (10:30)
[2023-01-31] MEDS: FAMOTIDINE 20 MG/2 ML VIAL IV PUSH ×2 (10:31→21:03)
[2023-01-31 11:51] LABS: Glucose Point of Care 151 mg/dl (65-105)
[2023-01-31] MEDS: LIDOCAINE HCL 1% PF INJ 5 ML VIAL INFILTRATE (12:00)
[2023-01-31 12:58] LABS: Basophils Absolute Auto 0.1 K/mm3 (0.0-0.1); Basophils Percent Auto 0.5 % (0.2-1.2); Hematocrit 37.2 % (37.0-47.0); Hemoglobin 12.8 g/dL (12.0-15.0); Immature Granulocyte Absolute 0.04 K/mm3 (0.00-0.031); Immature Granulocyte Percent A 0.3 % (0-0.5); Lymphocytes Absolute Auto 0.69 K/mm3 (0.9-3.2); Lymphocytes Percent Auto 5.6 % (18.3-44.2); Mean Corpuscular HGB Conc 34.4 g/dl (32-36); Mean Corpuscular Hemoglobin 31.1 pg (26-34); Mean Corpuscular Volume 90.3 fl (80-100); Mean Platelet Volume 8.7 fl (7.4-10.4); Monocytes Percent Auto 8.3 % (2.6-8.5); Neutrophils Absolute Auto 10.6 K/mm3 (1.3-6.7); Neutrophils Percent Auto 85.3 % (45.5-73.1); Platelet Count Result 129 k/mm3 (150-375); Red Blood Count 4.12 M/mm3 (4.2-5.4); Red Cell Distribution Width 13.1 % (11.5-14.5); White Blood Count 12.4 K/mm3 (4.5-10.0)
[2023-01-31 13:10] LABS: Alanine Aminotransferase 629 U/L (6-35); Albumin Level 3.5 g/dL (3.5-5.1); Alkaline Phosphatase 95 U/L (38-126); Anion Gap 2 mmol/L (8-16); Aspartate Amino Transferase 449 U/L (14-36); Blood Urea Nitrogen 12 mg/dL (7-17); Carbon Dioxide 32 mmol/L (22-30); Chloride 104 mmol/L (98-107); Estimated CRCL calculation 61 ml/min; Estimated Glomerular Filt Rate 58; Glucose 155 mg/dL (65-110); Magnesium 1.8 mg/dL (1.6-2.3); Potassium 4.4 mmol/L (3.4-5.0); Sodium 138 mmol/L (137-145)
[2023-01-31 13:12] LABS: Partial Thromboplastin Time 30.3 SECONDS (22.3-36.8)
--- NOTE | 2023-01-31 13:17 | PCOTNOTE ---
Attempted to see pt. for occupational therapy. Pt. awaiting delivery of pain pump by nursing prior to participation in therapy, agreeable to participate at later time. Nursing aware. Following
[2023-01-31 13:47] LABS: Transferrin 170 mg/dL (206-381)
[2023-01-31] MEDS: AMINO ACIDS 5%/D15W/E-LYTES/CA 2,000 ML with MULTIVITAMINS-12 INJ VIAL 1 2.5 ML, MULTIV... 40 ML IV CONT (14:26)
[2023-01-31] MEDS: MORPHINE SULFATE PCA (*CRX) 30 MG/30 ML SYR IV CONT (14:37)
[2023-01-31 17:11] LABS: Glucose Point of Care 152 mg/dl (65-105)
[2023-01-31] MEDS: CENTRAL LINE FLUSH 10 ML IV PUSH ×2 (18:45→21:02)
[2023-01-31] MEDS: FAT EMULSIONS IV 20% 250 ML 20.83 ML IVPB (18:46)
[2023-02-01] VITALS (11 sets, daily range): BP systolic 137–142; BP diastolic 57–66; PULSE 96–111; RESP 17–23; TEMP 36.6–36.9; O2SAT 94–100
[2023-02-01] MEDS: LACTATED RINGERS 1,000 ML 100 ML IV CONT ×3 (00:10→20:31)
[2023-02-01 00:53] LABS: Glucose Point of Care 174 mg/dl (65-105)
[2023-02-01] MEDS: CENTRAL LINE FLUSH 10 ML IV PUSH ×3 (05:22→20:31)
[2023-02-01 05:27] LABS: Glucose Point of Care 156 mg/dl (65-105)
[2023-02-01 05:46] LABS: Anion Gap 4 mmol/L (8-16); Blood Urea Nitrogen 12 mg/dL (7-17); Calcium 7.6 mg/dL (8.4-10.2); Carbon Dioxide 30 mmol/L (22-30); Chloride 102 mmol/L (98-107); Estimated CRCL calculation 61 ml/min; Estimated Glomerular Filt Rate 58; Glucose 161 mg/dL (65-110); Phosphorus 2.3 mg/dL (2.5-4.5); Potassium 3.9 mmol/L (3.4-5.0); Sodium 136 mmol/L (137-145)
[2023-02-01 08:09] LABS: Glucose Point of Care 169 mg/dl (65-105)
[2023-02-01] MEDS: ENOXAPARIN 40 MG/0.4 ML SYRINGE SUB-Q (08:32)
[2023-02-01] MEDS: FAMOTIDINE 20 MG/2 ML VIAL IV PUSH ×2 (08:32→20:31)
[2023-02-01] MEDS: ALVIMOPAN 12 MG CAPSULE PO ×2 (08:34→20:31)
--- NOTE | 2023-02-01 08:57 | PCOTNOTE ---
Attempted to see pt. for occupational therapy evaluation. Pt. requested to be seen later today due to pain and discomfort. Nursing aware. Following.
--- NOTE | 2023-02-01 09:01 | PCPTNOTE ---
Attempted to see pt. for physical therapy evaluation. Pt. requested to be seen later today due to pain and discomfort. Nursing aware. Following.
[2023-02-01 10:16] LABS: Triglycerides 388 mg/dL (<150)
[2023-02-01 11:43] LABS: Glucose Point of Care 148 mg/dl (65-105)
[2023-02-01] MEDS: AMINO ACIDS 5%/D15W/E-LYTES/CA 2,000 ML with MULTIVITAMINS-12 INJ VIAL 1 2.5 ML, MULTIV... 40 ML IV CONT (12:22)
--- NOTE | 2023-02-01 12:44 | PM.PNGS ---
Progress Note: A&P Assessment and Plan (1) Acute appendicitis: Code(s): K35.80 - Unspecified acute appendicitis Status: Acute Assessment and Plan: cont rountine post op care, cont NG, bowel rest, encourage OOB/IS (2) Ileus: Code(s): K56.7 - Ileus, unspecified Status: Acute Assessment and Plan: cont NG, bowel rest, await ROBF, cont TPN (3) Elevated liver enzymes: Code(s): R74.8 - Abnormal levels of other serum enzymes Status: Acute Assessment and Plan: likely from starting TPN, stasis, will get GI and medical consult as per pt and family request Subjective Subjective Date/Time Seen: 02/01/23 12:44 Interval history: still c abd pain/soreness Review of Systems Review of Systems: All systems reviewed & are unremarkable except as noted in HPI and below Exam Const: General: cooperative, acute distress mild and uncomfortable Resp: Auscultation: clear to auscultation bilaterally Cardio: Rate: tachycardic Rhythm: regular rhythm GI: Inspection: normal to inspection, distended and incision GI Palp: Yes abdominal tenderness, Yes Soft to palpation, Yes Tenderness to palpation present (GI), No Guarding due to palpation present (GI) and No Rigid due to palpation Objective Data Vital Signs Vital Signs: Vital Signs - 24 hr 01/31/23 12:52 01/31/23 14:37 01/31/23 14:20 Temperature 36.6 C Pulse Rate 90 85 Respiratory Rate 18 16 14 Blood Pressure 116/64 Pulse Oximetry 100 97 Oxygen Delivery Nasal Cannula Oxygen Flow Rate 3 01/31/23 18:39 01/31/23 15:30 01/31/23 16:40 Temperature 36.3 C L Pulse Rate 94 Respiratory Rate 18 16 17 Blood Pressure 118/61 Pulse Oximetry 99 100 100 Oxygen Delivery Oxygen Flow Rate 01/31/23 17:35 01/31/23 18:50 01/31/23 20:18 Temperature Pulse Rate 88 Respiratory Rate 17 16 15 Blood Pressure Pulse Oximetry 100 100 100 Oxygen Delivery Nasal Cannula Oxygen Flow Rate 3 01/31/23 20:25 01/31/23 20:00 01/31/23 21:20 Temperature 36.6 C Pulse Rate 101 H Respiratory Rate 18 Blood Pressure 131/62 Pulse Oximetry 100 100 98 Oxygen Delivery Nasal Cannula Nasal Cannula Oxygen Flow Rate 2 2 01/31/23 22:55 02/01/23 02:55 02/01/23 07:57 Temperature 36.9 C 36.8 C Pulse Rate 100 101 H 111 H Respiratory Rate 18 18 23 H Blood Pressure 117/56 L 137/66 Pulse Oximetry 99 97 95 Oxygen Delivery Nasal Cannula Oxygen Flow Rate 2 02/01/23 09:00 02/01/23 08:30 02/01/23 11:00 Temperature Pulse Rate Respiratory Rate 20 20 Blood Pressure Pulse Oximetry 94 94 97 Oxygen Delivery Nasal Cannula Oxygen Flow Rate 2 Intake/Output Intake/Output: Intake & Output 01/29/23 01/30/23 01/31/23 02/01/23 23:59 23:59 23:59 23:59 Intake Total 1150 1450 4005 Output Total 1410 200 Balance 1150 40 3805 Meds/Results Medications: Active Medications Generic Name Dose Route Start Last Admin Trade Name Freq PRN Reason Stop Dose Admin Alvimopan 12 mg 02/01/23 09:00 02/01/23 08:34 Alvimopan 12 Mg Capsule PO 02/08/23 08:59 12 mg Q12HR JOHN Administration Enoxaparin Sodium 40 mg 01/31/23 09:00 02/01/23 08:32 Enoxaparin 40 Mg/0.4 Ml Syringe SUB-Q 40 mg DAILY JOHN Administration Famotidine 20 mg 01/31/23 09:00 02/01/23 08:32 Famotidine 20 Mg/2 Ml Vial IV PUSH 20 mg Q12HR JOHN Administration Lactated Ringer's 1,000 mls @ 100 mls/hr 01/31/23 01:10 02/01/23 10:20 Lr - Lactated Ringers Iv IV CONT 100 mls/hr .Q10H JOHN Administration Morphine Sulfate 30 mg in 30 mls @ 0 mls/hr 01/31/23 10:26 02/01/23 11:00 Morphine Sulfate Kettle Firer IV CONT 1 mg/hr PRN PRN 1 mls/hr RN CLINICAL RESEARCH Management Titration Protocol 0 MG/HR Multivitamins 2.5 ml/ 2,005 mls @ 40 mls/hr 01/31/23 11:00 02/01/23 12:22 Multivitamins 2.5 ml/ Amino IV CONT 40 mls/hr Acids/Electrolytes/Dextrose .Q24H JOHN Administration Protocol Dextrose
--- NOTE | 2023-02-01 14:25 | PM.IMCN ---
Assessment and Plan Assessment and plan (1) S/P appendectomy: Code(s): Z90.49 - Acquired absence of other specified parts of digestive tract Status: Acute Assessment and Plan: on 01/31/2023 the patient had laparoscopic converted to open appendectomy, extensive lysis of adhesion and small-bowel resection. As per surgical protocol the patient's Coates was supposed to come out today. The patient stated that she still having difficulty moving around would rather have the Coates catheter left in overnight Postop care per surgery. DVT prophylaxis per surgery. The patient has SCDs. And Lovenox. The patient has a PICC line in for tPA. The patient is NPO. I did not hear any bowel sounds as of yet. The patient was sitting up in the chair today. She stated this is the 2nd time since she has had surgery. I have encouraged her to use incentive spirometer. The patient is currently coughing up thick yellow sputum. She remains NPO except for ice chips. Continue with p.r.n. albuterol. Analgesics per surgery. (2) Hypercholesterolemia: Code(s): E78.00 - Pure hypercholesterolemia, unspecified Status: Acute Assessment and Plan: Patient is NPO she is not able to get her simvastatin at this time. Continue to monitor her triglyceride and continue with Accu-Cheks with her TPN. (3) Elevated liver enzymes: Code(s): R74.8 - Abnormal levels of other serum enzymes Status: Acute Assessment and Plan: EF to use 629 and AST is 449. Please continue to monitor HPI Data of Consult Consult date: 02/01/23 Requesting Physician: Monique Quintana MD Primary Care Provider: Chan Valdivia, Consult Narrative Narrative: Lacie Gaitan is a 52 year old female Who presented to the hospital on 01/30/2023 with abdominal discomfort. This discomfort was going on for 4 days and radiated to her back. Patient had severe cramping. It was worse with moving and bending. She has had a history of having a bowel obstruction in the past and she was concerned about this being another bowel obstruction. She had no fever chills. The patient had extensive past surgical history from complications from cholecystectomy over 20 years ago. On 01/31/2023 the patient had a laparoscopic converted to open appendectomy extensive lysis of adhesions of approximately 2-1/2 hours and a small-bowel resection. Please see surgical note. The patient is currently on a morphine pump. She still continues to be in some discomfort. Blood pressure is 140/ 57. Pulse is 107. She is afebrile at this time. She has oxygen at 2 L per nasal can and stabbing 96%. The patient also had a PICC line placed yesterday and was started on TPN. The patient was admitted to inpatient status as as per surgery and the hospitalist group was asked to consult on this patient on 02/01/2023. Review of Systems Review of Systems: All systems reviewed & are unremarkable except as noted in HPI and below Constitutional: Constitutional: Reports as per HPI and Reports no additional constitutional complaints Eyes: Eyes: Reports as per HPI and Reports no additional eye complaints ENT: Reports system reviewed and no additional complaints, except as documented and Reports Normal hearing present Cardiovascular: Cardiovascular: Reports no additional cardiovascular complaints Respiratory: Respiratory: Reports no additional respiratory complaints and Reports no additional respiratory complaints Gastrointestinal: Gastrointestinal: Reports as per HPI and Reports no additional gastrointestinal complaints Musculoskeletal: Musculoskeletal: Reports no additional musculoskeletal complaints Integumentary/Breasts: Skin/Breast: Reports system reviewed and no additional complaints, except as docu and Reports as per HPI Neurologic: Reports system reviewed and no additional complaints, except as documented, Reports as per HPI and Reports Normal hearing present Psychi
--- NOTE | 2023-02-01 16:04 | PCPTNOTE ---
On 02/01/23, the student, [Dinah Menendez], provided care and completed [facility] documentation on this patient. I have reviewed the student's documentation and agree with the findings.
[2023-02-01 17:24] LABS: Glucose Point of Care 148 mg/dl (65-105)
[2023-02-01] MEDS: FAT EMULSIONS IV 20% 250 ML 20.83 ML IVPB (17:35)
[2023-02-02] VITALS (10 sets, daily range): BP systolic 134–150; BP diastolic 62–77; PULSE 88–106; RESP 17–30; TEMP 36.2–37.2; O2SAT 91–99
[2023-02-02] MEDS: MORPHINE SULFATE PCA (*CRX) 30 MG/30 ML SYR IV CONT (00:41)
[2023-02-02 00:59] LABS: Glucose Point of Care 163 mg/dl (65-105)
[2023-02-02] MEDS: CENTRAL LINE FLUSH 10 ML IV PUSH ×2 (05:13→21:46)
[2023-02-02 05:27] LABS: Glucose Point of Care 163 mg/dl (65-105)
[2023-02-02 05:29] LABS: Basophils Percent Auto 0.2 % (0.2-1.2); Eosinophils Absolute Auto 0.2 K/mm3 (0-0.3); Eosinophils Percent Auto 1.8 % (0-4.4); Hemoglobin 9.9 g/dL (12.0-15.0); Immature Granulocyte Absolute 0.07 K/mm3 (0.00-0.031); Immature Granulocyte Percent A 0.7 % (0-0.5); Lymphocytes Absolute Auto 0.78 K/mm3 (0.9-3.2); Lymphocytes Percent Auto 8.2 % (18.3-44.2); Mean Corpuscular HGB Conc 34.1 g/dl (32-36); Mean Corpuscular Hemoglobin 30.6 pg (26-34); Mean Corpuscular Volume 89.5 fl (80-100); Monocytes Absolute Auto 0.8 K/mm3 (0.1-0.6); Monocytes Percent Auto 7.9 % (2.6-8.5); Neutrophils Absolute Auto 7.8 K/mm3 (1.3-6.7); Neutrophils Percent Auto 81.2 % (45.5-73.1); Platelet Count Result 112 k/mm3 (150-375); Red Blood Count 3.24 M/mm3 (4.2-5.4); Red Cell Distribution Width 12.5 % (11.5-14.5); White Blood Count 9.6 K/mm3 (4.5-10.0)
[2023-02-02 05:45] LABS: Alanine Aminotransferase 191 U/L (6-35); Albumin Level 3.1 g/dL (3.5-5.1); Alkaline Phosphatase 77 U/L (38-126); Anion Gap 1 mmol/L (8-16); Aspartate Amino Transferase 50 U/L (14-36); Bilirubin,Total 1.6 mg/dL (0.2-1.3); Blood Urea Nitrogen 11 mg/dL (7-17); Calcium 7.8 mg/dL (8.4-10.2); Carbon Dioxide 33 mmol/L (22-30); Chloride 101 mmol/L (98-107); Estimated CRCL calculation 68 ml/min; Estimated Glomerular Filt Rate > 60; Glucose 165 mg/dL (65-110); Magnesium 1.8 mg/dL (1.6-2.3); Phosphorus 2.3 mg/dL (2.5-4.5); Potassium 3.6 mmol/L (3.4-5.0); Sodium 135 mmol/L (137-145)
[2023-02-02] MEDS: LACTATED RINGERS 1,000 ML 100 ML IV CONT ×2 (05:59→17:40)
[2023-02-02] MEDS: ENOXAPARIN 40 MG/0.4 ML SYRINGE SUB-Q (08:11)
[2023-02-02] MEDS: ALVIMOPAN 12 MG CAPSULE PO ×2 (08:11→21:46)
[2023-02-02] MEDS: FAMOTIDINE 20 MG/2 ML VIAL IV PUSH ×2 (08:12→21:46)
[2023-02-02 08:27] LABS: Glucose Point of Care 168 mg/dl (65-105)
--- NOTE | 2023-02-02 10:29 | PM.PNGS ---
Progress Note: A&P Assessment and Plan (1) Acute appendicitis: Code(s): K35.80 - Unspecified acute appendicitis Status: Acute Assessment and Plan: stable, cont routine post op care, path reviewed (2) Ileus: Code(s): K56.7 - Ileus, unspecified Status: Acute Assessment and Plan: await ROBF, cont TPN, encourage OOB/IS, PT/OT Subjective Subjective Date/Time Seen: 02/02/23 10:29 Interval history: feels weak and tired, abd tenderness slightly improved Review of Systems Review of Systems: All systems reviewed & are unremarkable except as noted in HPI and below Exam Const: General: cooperative, acute distress mild, tired appearing and uncomfortable Resp: Auscultation: clear to auscultation bilaterally Cardio: Rate: tachycardic Rhythm: regular rhythm GI: Inspection: normal to inspection, distended and incision GI Palp: Yes abdominal tenderness, Yes Soft to palpation, Yes Tenderness to palpation present (GI), No Guarding due to palpation present (GI) and No Rigid due to palpation Objective Data Vital Signs Vital Signs: Vital Signs - 24 hr 02/01/23 11:00 02/01/23 14:12 02/01/23 14:09 Temperature 36.9 C Pulse Rate 107 H Respiratory Rate 20 18 Blood Pressure 140/57 L Pulse Oximetry 97 96 Oxygen Delivery Nasal Cannula Oxygen Flow Rate 2 02/01/23 17:39 02/01/23 20:33 02/01/23 20:00 Temperature 36.6 C Pulse Rate 96 Respiratory Rate 18 21 H Blood Pressure 142/63 H Pulse Oximetry 98 100 98 Oxygen Delivery Nasal Cannula Oxygen Flow Rate 1 02/01/23 20:30 02/01/23 20:37 02/02/23 00:45 Temperature 36.7 C Pulse Rate 101 H 106 H Respiratory Rate 17 18 18 Blood Pressure 134/72 Pulse Oximetry 100 97 97 Oxygen Delivery Nasal Cannula Oxygen Flow Rate 2 02/02/23 06:49 02/02/23 08:30 Temperature 36.2 C L Pulse Rate 104 H 99 Respiratory Rate 20 30 H Blood Pressure 147/77 H Pulse Oximetry 99 94 Oxygen Delivery Room Air Oxygen Flow Rate Intake/Output Intake/Output: Intake & Output 01/30/23 01/31/23 02/01/23 02/02/23 23:59 23:59 23:59 23:59 Intake Total 1150 1450 5285 1000 Output Total 1410 400 900 Balance 1150 40 4885 100 Meds/Results Medications: Active Medications Generic Name Dose Route Start Last Admin Trade Name Freq PRN Reason Stop Dose Admin Albuterol 2.5 mg 02/01/23 17:55 Albuterol Sulfate Neb 2.5 Mg/3 Ml Inh INHALATION Q4HRT PRN Cough Alvimopan 12 mg 02/01/23 09:00 02/02/23 08:11 Alvimopan 12 Mg Capsule PO 02/08/23 08:59 12 mg Q12HR JOHN Administration Enoxaparin Sodium 40 mg 01/31/23 09:00 02/02/23 08:11 Enoxaparin 40 Mg/0.4 Ml Syringe SUB-Q 40 mg DAILY JOHN Administration Famotidine 20 mg 01/31/23 09:00 02/02/23 08:12 Famotidine 20 Mg/2 Ml Vial IV PUSH 20 mg Q12HR JOHN Administration Lactated Ringer's 1,000 mls @ 100 mls/hr 01/31/23 01:10 02/02/23 05:59 Lr - Lactated Ringers Iv IV CONT 100 mls/hr .Q10H JOHN Administration Morphine Sulfate 30 mg in 30 mls @ 0 mls/hr 01/31/23 10:26 02/02/23 00:41 Morphine Sulfate Obgyn Nurse IV CONT 1 mg/hr PRN PRN 1 mls/hr JOURNEYMAN PRESSMAN Management Administration Protocol 0 MG/HR Multivitamins 2.5 ml/ 2,005 mls @ 40 mls/hr 01/31/23 11:00 02/01/23 12:22 Multivitamins 2.5 ml/ Amino IV CONT 40 mls/hr Acids/Electrolytes/Dextrose .Q24H JOHN Administration Protocol Dextrose 1,000 mls @ 50 mls/hr 01/31/23 10:28 Dextrose 10% IV CONT .Q20H PRN if PN is interrupted Fat Emulsion Intravenous 250 mls @ 20.833 mls/hr 01/31/23 18:00 02/01/23 17:35 Lipids 20% IVPB 20.83 mls/hr Q24H JOHN Administration Morphine Sulfate 2 mg 01/31/23 01:10 Morphine Sulfate (*Crx) 2 Mg/Ml Inj IV PUSH Q2H PRN Pain Rated 4-6 Morphine Sulfate 4 mg 01/31/23 01:10 01/31/23 10:36 Morphine Sulfate (*Crx) 4 Mg/Ml Inj IV PUSH 4 mg Q2H PRN Administration Pain Rated 7-10
[2023-02-02 12:08] LABS: Glucose Point of Care 153 mg/dl (65-105)
[2023-02-02] MEDS: AMINO ACIDS 5%/D15W/E-LYTES/CA 2,000 ML with MULTIVITAMINS-12 INJ VIAL 1 2.5 ML, MULTIV... 40 ML IV CONT (12:14)
--- NOTE | 2023-02-02 13:15 | PM.IMPN ---
Progress Note: A&P Assessment and Plan (1) S/P appendectomy: Code(s): Z90.49 - Acquired absence of other specified parts of digestive tract Status: Acute Assessment and Plan: On 01/31/2023 the patient had laparoscopic converted to open appendectomy, extensive lysis of adhesion and small-bowel resection. Postop care per surgery. DVT prophylaxis per surgery. The patient has SCDs and Lovenox. The patient has a PICC line in for tPA. The patient is NPO. Encouraged her to use incentive spirometer. Continue with p.r.n. albuterol. Analgesics per surgery. (2) Hypercholesterolemia: Code(s): E78.00 - Pure hypercholesterolemia, unspecified Status: Acute Assessment and Plan: Patient is NPO she is not able to get her simvastatin at this time. Continue to monitor her triglyceride and continue with Accu-Cheks with her TPN. (3) Elevated liver enzymes: Code(s): R74.8 - Abnormal levels of other serum enzymes Status: Acute Assessment and Plan: Total bili and LFTs trending down. Today's T bili 1.6, AST and ALT 50/191 Continue IV fluids Subjective Date/time seen: 02/02/23 13:15 Interval history: Pt continues to have pain in her lower abdomen and low back. 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 She denies n/v/d. Review of Systems Review of Systems: All systems reviewed & are unremarkable except as noted in HPI and below Exam Narrative: GENERAL: Comfortable, no acute distress HENMT: moist mucous membranes EYES: EOM intact b/l NECK: no lymphadenopathy RESPIRATORY: clear to auscultation CARDIO: RRR GI: soft, diffuse abdominal tenderness to palpation, bowel sounds present, dressing dry and intact over the abdomen SKIN: no rashes EXTREMITIES: no edema, redness or tenderness Objective Data Vital Signs Vital Signs: Vital Signs - 24 hr 02/01/23 14:12 02/01/23 14:09 02/01/23 17:39 Temperature 98.5 F Pulse Rate 107 H Respiratory Rate 18 18 Blood Pressure 140/57 L Pulse Oximetry 96 98 Oxygen Delivery Nasal Cannula Oxygen Flow Rate 2 02/01/23 20:33 02/01/23 20:00 02/01/23 20:30 Temperature 97.8 F Pulse Rate 96 101 H Respiratory Rate 21 H 17 Blood Pressure 142/63 H Pulse Oximetry 100 98 100 Oxygen Delivery Nasal Cannula Nasal Cannula Oxygen Flow Rate 1 2 02/01/23 20:37 02/02/23 00:45 02/02/23 06:49 Temperature 98.1 F 97.1 F L Pulse Rate 106 H 104 H Respiratory Rate 18 18 20 Blood Pressure 134/72 147/77 H Pulse Oximetry 97 97 99 Oxygen Delivery Oxygen Flow Rate 02/02/23 08:30 02/02/23 08:00 02/02/23 08:15 Temperature Pulse Rate 99 Respiratory Rate 30 H 18 Blood Pressure Pulse Oximetry 94 97 Oxygen Delivery Room Air Room Air Oxygen Flow Rate Intake/Output Intake/Output: Intake & Output 01/30/23 01/31/23 02/01/23 02/02/23 23:59 23:59 23:59 23:59 Intake Total 1150 1450 5285 3005 Output Total 1410 400 900 Balance 1150 40 4885 2105 Meds/Results Medications: Active Medications Generic Name Dose Route Start Last Admin Trade Name Freq PRN Reason Stop Dose Admin Albuterol 2.5 mg 02/01/23 17:55 Albuterol Sulfate Neb 2.5 Mg/3 Ml Inh INHALATION Q4HRT PRN Cough Alvimopan 12 mg 02/01/23 09:00 02/02/23 08:11 Alvimopan 12 Mg Capsule PO 02/08/23 08:59 12 mg Q12HR JOHN Administration Enoxaparin Sodium 40 mg 01/31/23 09:00 02/02/23 08:11 Enoxaparin 40 Mg/0.4 Ml Syringe SUB-Q 40 mg DAILY JOHN Administration Famotidine 20 mg 01/31/23 09:00 02/02/23 08:12 Famotidine 20 Mg/2 Ml Vial IV PUSH 20 mg Q12HR JOHN Administration Lactated Ringer's 1,000 mls @ 100 mls/hr 01/31/23 01:10 02/02/23 05:59 Lr - Lactated Ringers Iv IV CONT 100 mls/hr .Q10H JOHN Administration Morphine Sulfate 30 mg in 30 mls @ 0 mls/hr 01/31/23 10:26 02/02/23 08:15 Morphine Sulfate Geospatial Scientist IV CONT 1 mg/hr PRN PRN 1 ml
--- NOTE | 2023-02-02 17:26 | WPDGICN ---
Assessment and Plan Assessment and plan (1) Acute appendicitis: Code(s): K35.80 - Unspecified acute appendicitis Status: Acute Assessment and Plan: had difficult abdomen with multiple adhesions now on TPN, developed ileus post op (2) Ileus: Code(s): K56.7 - Ileus, unspecified Status: Acute Assessment and Plan: npo, ngt in place and she is on tpn (3) Elevated liver enzymes: Code(s): R74.8 - Abnormal levels of other serum enzymes Status: Acute Assessment and Plan: acute elevation probably after recent surgery, tpn, etc today has improved continue to monitor (4) Abdominal pain: Code(s): R10.9 - Unspecified abdominal pain Status: Acute (5) S/P appendectomy: Code(s): Z90.49 - Acquired absence of other specified parts of digestive tract Status: Acute GI Consult Note Consult date/time: 02/02/23 17:26 Reason for consult: ileus post op, elevated lft HPI: Lacie Gaitan is a 52 year old female who had extensive past surgical history from complications from cholecystectomy 20+ yrs ago. She was admitted with progressive abdominal pain and found to have appendicitis. She underwent laparoscopic converted to open appendectomy because difficult case and had hostile abdomen, extensive lysis of adhesions of approximately 2-1/2 hours, small-bowel resection. Given persistent ileus started on TPN and still NGT in place, noted elevated liver enzymes but today improved. She was told in the past that had mild elevated liver enzymes. CT scan showed normal liver. Still not passing gas. says that in the past had abdominal infection and required multiple interventions. Review of Systems Constitutional: Constitutional: Reports as per HPI, Denies anorexia and Reports poor appetite Eyes: Eyes: Reports as per HPI and Reports no additional eye complaints ENT: Reports system reviewed and no additional complaints, except as documented Cardiovascular: Cardiovascular: Reports no additional cardiovascular complaints Respiratory: Respiratory: Reports no additional respiratory complaints Gastrointestinal: Gastrointestinal: Reports as per HPI, Reports abdominal pain, Reports GI cramping and Reports early satiety Genitourinary: Genitourinary: Denies hematuria Musculoskeletal: Musculoskeletal: Denies arthralgias Integumentary/Breasts: Skin/Breast: Denies rash Neurologic: Denies Abnormal speech present Psychiatric: Psychiatric: Denies confusion [facility] Past Medical History Medical History (Updated 02/01/23 @ 16:57 by Chiquita Moscoso NP) History of small bowel obstruction Hypercholesterolemia Surgical History Surgical History (Updated 02/01/23 @ 21:33 by Chiquita Moscoso NP) H/O abdominal surgery she had exploratory laparotomy. She also had a benign abdominal mass removed. She also had repair of her hepatic artery after her gallbladder was removed. H/O: hysterectomy History of section, classical History of cholecystectomy History of removal of ovarian cyst S/P appendectomy Family History Family History Other Family history of arthritis Family history of hypercholesterolemia Family history of kidney disease Social History Social History (Updated 02/01/23 @ 16:59 by Chiquita Moscoso NP) Social History: The patient lives with her and she has 2 children. 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 She does not use any alcohol or illicit drugs. Code status full code Smoking status: Never smoker Alcohol intake: never Substance use: never Substance use type: does not use Lack of Transportation: No Lack of Food: Never True Current Housing: I Have Housing Concerned About Future Housing: No Difficulty Paying Gas/Electric Bills: No Difficulty Paying for Meds: No Currently Unemployed:
[2023-02-02] MEDS: FAT EMULSIONS IV 20% 250 ML 20.83 ML IVPB (17:40)
[2023-02-02] MEDS: OXYMETAZOLINE HCL 0.05% NAS 15 ML BTL (*BKC) 1 SPRAY NASAL (17:40)
[2023-02-02 17:54] LABS: Glucose Point of Care 152 mg/dl (65-105)
[2023-02-02] MEDS: ZOLPIDEM TARTRATE (*CRX) 5 MG TABLET PO (21:46)
[2023-02-02 23:52] LABS: Glucose Point of Care 140 mg/dl (65-105)
[2023-02-03 00:55] VITALS: BP 130/60; PULSE 95; RESP 20; TEMP 36.3; O2SAT 98
[2023-02-03] MEDS: LACTATED RINGERS 1,000 ML 100 ML IV CONT (04:21)
[2023-02-03] MEDS: CENTRAL LINE FLUSH 10 ML IV PUSH ×3 (05:14→21:45)
[2023-02-03 05:30] LABS: Glucose Point of Care 140 mg/dl (65-105)
[2023-02-03 05:46] LABS: Anion Gap 2 mmol/L (8-16); Blood Urea Nitrogen 12 mg/dL (7-17); Calcium 7.7 mg/dL (8.4-10.2); Carbon Dioxide 32 mmol/L (22-30); Chloride 102 mmol/L (98-107); Estimated CRCL calculation 67 ml/min; Estimated Glomerular Filt Rate > 60; Glucose 151 mg/dL (65-110); Phosphorus 3.9 mg/dL (2.5-4.5); Potassium 3.2 mmol/L (3.4-5.0); Sodium 136 mmol/L (137-145); Triglycerides 284 mg/dL (<150)
[2023-02-03 06:00] VITALS: BP 129/59; PULSE 93; RESP 20; TEMP 36.6; O2SAT 98
[2023-02-03 08:03] VITALS: PULSE 94; RESP 22; O2SAT 94
[2023-02-03 08:46] LABS: Glucose Point of Care 134 mg/dl (65-105)
[2023-02-03] MEDS: ALVIMOPAN 12 MG CAPSULE PO ×2 (09:10→21:43)
[2023-02-03] MEDS: ENOXAPARIN 40 MG/0.4 ML SYRINGE SUB-Q (09:10)
[2023-02-03] MEDS: FAMOTIDINE 20 MG/2 ML VIAL IV PUSH ×2 (09:11→21:43)
[2023-02-03] MEDS: OXYMETAZOLINE HCL 0.05% NAS 15 ML BTL (*BKC) 1 SPRAY NASAL (09:15)
--- NOTE | 2023-02-03 10:05 | PM.PNGS ---
Progress Note: A&P Assessment and Plan (1) Acute appendicitis: Code(s): K35.80 - Unspecified acute appendicitis Status: Acute Assessment and Plan: Await return of bowel function, Continue NG decompression. Increase activity as tolerated. Will stop PROGRAM MANAGEMENT ANALYST today, continue PRN Morphine (2) Ileus: Code(s): K56.7 - Ileus, unspecified Status: Acute (3) Protein calorie malnutrition: Qualifiers: Protein-calorie malnutrition severity: mild Qualified Code(s): E44.1 - Mild protein-calorie malnutrition Code(s): E46 - Unspecified protein-calorie malnutrition Status: Acute Assessment and Plan: Adjusted TPN to 60 ml/hr, Fat emulsions to q48h. Stop Lactated ringers Continue monitoring I/O's and electrolytes. Subjective Subjective Date/Time Seen: 02/03/23 10:05 Interval history: Starting to feel some colicky/crampy feelings but no flatus yet. Not using the PROGRAM MANAGEMENT ANALYST too frequently and pain has been controlled. She still feels unsteady on her feet and hasn't walked much yet. Exam GI: Inspection: incision (intact with verito, minimal serous drainage, no erythema) GI Palp: Yes Soft to palpation and Yes Tenderness to palpation present (GI) (incisional) Auscultation: Hypoactive bowel sounds present Objective Data Vital Signs Vital Signs: Vital Signs - 24 hr 02/02/23 14:11 02/02/23 17:28 02/02/23 18:27 Temperature 37.2 C Pulse Rate 88 100 Respiratory Rate 18 17 18 Blood Pressure 150/72 H Pulse Oximetry 91 95 96 Oxygen Delivery Room Air 02/02/23 20:31 02/02/23 20:00 02/03/23 00:55 Temperature 37.1 C 36.3 C L Pulse Rate 99 95 Respiratory Rate 20 20 Blood Pressure 139/62 130/60 Pulse Oximetry 98 98 98 Oxygen Delivery Room Air 02/02/23 20:50 02/03/23 06:00 02/03/23 08:03 Temperature 36.6 C Pulse Rate 99 93 94 Respiratory Rate 20 20 22 H Blood Pressure 129/59 L Pulse Oximetry 96 98 94 Oxygen Delivery Room Air Room Air Intake/Output Intake/Output: Intake & Output 06/06/23 06/07/23 06/08/23 06/09/23 23:59 23:59 23:59 23:59 Intake Total 1453 5285 4265 1250 Output Total 7056 171 4941 1400 Balance 40 9361 3950 -053 Meds/Results Medications: Active Medications Generic Name Dose Route Start Last Admin Trade Name Freq PRN Reason Stop Dose Admin Albuterol 2.5 mg 02/01/23 17:55 Albuterol Sulfate Neb 2.5 Mg/3 Ml Inh INHALATION Q4HRT PRN Cough Alvimopan 12 mg 02/01/23 09:00 02/03/23 09:10 Alvimopan 12 Mg Capsule PO 02/08/23 08:59 12 mg Q12HR JOHN Administration Aspirin 325 mg 02/03/23 08:00 Aspirin 325 Mg Tablet PO DAILY@0800 JOHN Enoxaparin Sodium 40 mg 01/31/23 09:00 02/03/23 09:10 Enoxaparin 40 Mg/0.4 Ml Syringe SUB-Q 40 mg DAILY JOHN Administration Famotidine 20 mg 01/31/23 09:00 02/03/23 09:11 Famotidine 20 Mg/2 Ml Vial IV PUSH 20 mg Q12HR JOHN Administration Multivitamins 2.5 ml/ 2,005 mls @ 60 mls/hr 01/31/23 11:00 02/02/23 12:14 Multivitamins 2.5 ml/ Amino IV CONT 40 mls/hr Acids/Electrolytes/Dextrose .Q24H JOHN Administration Protocol Dextrose 1,000 mls @ 50 mls/hr 01/31/23 10:28 Dextrose 10% IV CONT .Q20H PRN if PN is interrupted Fat Emulsion Intravenous 250 mls @ 20.833 mls/hr 02/03/23 10:05 Lipids 20% IVPB Q48H JOHN Lorazepam 1 mg 02/02/23 10:38 Lorazepam Inj (*Crx) 2 Mg/Ml Vial IV PUSH Q6H PRN Anxiety Morphine Sulfate 2 mg 01/31/23 01:10 Morphine Sulfate (*Crx) 2 Mg/Ml Inj IV PUSH Q2H PRN Pain Rated 4-6 Morphine Sulfate 4 mg 01/31/23 01:10 01/31/23 10:36 Morphine Sulfate (*Crx) 4 Mg/Ml Inj IV PUSH 4 mg Q2H PRN Administration Pain Rated 7-10 Naloxone HCl 0.1 mg 01/31/23 01:10 Naloxone Hcl 0.4 Mg/Ml Vial IV PUSH Q2M PRN Opiate Reversal Ondansetron HCl 4 mg 01/31/23 01:10 Ondansetron Inj 4 Mg/2 Ml Vial IV PUSH Q4H PRN Nausea And Vo
[2023-02-03 10:56] LABS: Basophils Percent Auto 0.4 % (0.2-1.2); Eosinophils Absolute Auto 0.3 K/mm3 (0-0.3); Eosinophils Percent Auto 3.1 % (0-4.4); Hematocrit 27.5 % (37.0-47.0); Hemoglobin 9.2 g/dL (12.0-15.0); Immature Granulocyte Absolute 0.09 K/mm3 (0.00-0.031); Immature Granulocyte Percent A 1.1 % (0-0.5); Lymphocytes Absolute Auto 0.99 K/mm3 (0.9-3.2); Lymphocytes Percent Auto 12.3 % (18.3-44.2); Mean Corpuscular HGB Conc 33.5 g/dl (32-36); Mean Corpuscular Hemoglobin 30.4 pg (26-34); Mean Corpuscular Volume 90.8 fl (80-100); Mean Platelet Volume 9.1 fl (7.4-10.4); Monocytes Absolute Auto 0.6 K/mm3 (0.1-0.6); Monocytes Percent Auto 7.7 % (2.6-8.5); Neutrophils Absolute Auto 6.1 K/mm3 (1.3-6.7); Neutrophils Percent Auto 75.4 % (45.5-73.1); Platelet Count Result 125 k/mm3 (150-375); Red Blood Count 3.03 M/mm3 (4.2-5.4); Red Cell Distribution Width 12.6 % (11.5-14.5); White Blood Count 8.1 K/mm3 (4.5-10.0)
[2023-02-03 11:31] LABS: Alanine Aminotransferase 100 U/L (6-35); Alkaline Phosphatase 56 U/L (38-126); Anion Gap 5 mmol/L (8-16); Aspartate Amino Transferase 45 U/L (14-36); Bilirubin,Total 1.2 mg/dL (0.2-1.3); Blood Urea Nitrogen 11 mg/dL (7-17); Calcium 7.7 mg/dL (8.4-10.2); Carbon Dioxide 28 mmol/L (22-30); Chloride 98 mmol/L (98-107); Estimated CRCL calculation 67 ml/min; Estimated Glomerular Filt Rate > 60; Glucose 583 mg/dL (65-110); Potassium 4.3 mmol/L (3.4-5.0); Sodium 131 mmol/L (137-145)
[2023-02-03 11:47] LABS: Glucose Point of Care 154 mg/dl (65-105)
--- NOTE | 2023-02-03 11:48 | PCNFU ---
Nutrition Follow-Up Complete: Inadequate energy intake related to altered GI function and NPO status as evidenced by current diet order and post GI surgery. goal: Meet estimated needs Patient is progressing towards goal. We will continue current goal. Pt current nutrition is Clinimix 5/15 at 40 ml/hr. Nutrition recommendation: increase rate to 60 ml/hr and Lipids change to q 48 hours. Last recorded weight is 90.3 kg. Bowel Motility:No BM , Active bowel sounds reported. Labs Reviewed:TG 284, Glu 151, K 3.2,Na 136 Meds Noted:Morphine, Clinimix 5/15 at 60 ml/hr with 250 ml of Lipid Emulsion. Skin:Abdominal Incision Additional Notes: Patient continues with NGT to suction. TPN running at 40 ml/hr with 250 ml of Lipid Emulsion, providing 1182 kcals/48 gms protein. Currently meeting 65% of caloric needs at 20 kcal/kg. Protein needs at 87%. Discussed with surgery today and recommended TPN change to 60 ml/hr and Lipids q 48 hours due to elevated TG. Plans to discontinue the LR today. Agree with diet orders. Monitor TPN, rate, orders, wt, labs. Follow up every Monday and Monday.
--- NOTE | 2023-02-03 11:49 | PC.NURSE ---
blood glucose does not match accucheck result, will redraw labs from PICC line
[2023-02-03] MEDS: AMINO ACIDS 5%/D15W/E-LYTES/CA 2,000 ML with MULTIVITAMINS-12 INJ VIAL 1 2.5 ML, MULTIV... 60 ML IV CONT (12:35)
--- NOTE | 2023-02-03 12:49 | PM.IMPN ---
Progress Note: A&P Assessment and Plan (1) S/P appendectomy: Code(s): Z90.49 - Acquired absence of other specified parts of digestive tract Status: Acute Assessment and Plan: On 01/31/2023 the patient had laparoscopic converted to open appendectomy, extensive lysis of adhesion and small-bowel resection. Postop care per surgery. DVT prophylaxis per surgery. The patient has SCDs and Lovenox. The patient has a PICC line in for tPA. The patient is NPO. Encouraged her to use incentive spirometer. Continue with p.r.n. albuterol. Analgesics per surgery. (2) Hypercholesterolemia: Code(s): E78.00 - Pure hypercholesterolemia, unspecified Status: Acute Assessment and Plan: Patient is NPO she is not able to get her simvastatin at this time. Continue to monitor her triglyceride and continue with Accu-Cheks with her TPN. (3) Elevated liver enzymes: Code(s): R74.8 - Abnormal levels of other serum enzymes Status: Acute Assessment and Plan: Total bili and LFTs trending down. Today's T bili 1.6, AST and ALT 50/191 Continue IV fluids Subjective Date/time seen: 02/03/23 12:49 Interval history: Patient up to the chair with at bedside. She is still having abdominal pain that is slightly better from yesterday. Did hear some bowel sounds in her left upper quadrant today. Hopeful for return of bowel function soon. is very worried due to patient's history of abdominal surgeries. She is not having any nausea or vomiting currently. She has not passed any gas. Continue to wait for bowel function to return. Review of Systems Review of Systems: All systems reviewed & are unremarkable except as noted in HPI and below Exam Narrative: GENERAL: Uncomfortable, no acute distress HENMT: moist mucous membranes EYES: EOM intact b/l RESPIRATORY: clear to auscultation CARDIO: RRR GI: soft, diffuse abdominal tenderness to palpation, dressing dry and intact over the abdomen , bowel sounds present in left upper quadrant SKIN: no rashes EXTREMITIES: no edema, redness or tenderness Objective Data Vital Signs Vital Signs: Vital Signs - 24 hr 02/02/23 14:11 02/02/23 17:28 02/02/23 18:27 Temperature 98.9 F Pulse Rate 88 100 Respiratory Rate 18 17 18 Blood Pressure 150/72 H Pulse Oximetry 91 95 96 Oxygen Delivery Room Air 02/02/23 20:31 02/02/23 20:00 02/03/23 00:55 Temperature 98.8 F 97.3 F L Pulse Rate 99 95 Respiratory Rate 20 20 Blood Pressure 139/62 130/60 Pulse Oximetry 98 98 98 Oxygen Delivery Room Air 02/02/23 20:50 02/03/23 06:00 02/03/23 08:03 Temperature 97.8 F Pulse Rate 99 93 94 Respiratory Rate 20 20 22 H Blood Pressure 129/59 L Pulse Oximetry 96 98 94 Oxygen Delivery Room Air Room Air 02/03/23 08:00 Temperature Pulse Rate Respiratory Rate Blood Pressure Pulse Oximetry Oxygen Delivery Room Air Intake/Output Intake/Output: Intake & Output 01/31/23 02/01/23 02/02/23 02/03/23 23:59 23:59 23:59 23:59 Intake Total 1450 5285 4265 3255 Output Total 2653 173 8091 1400 Balance 40 4885 2297 1855 Meds/Results Medications: Active Medications Generic Name Dose Route Start Last Admin Trade Name Freq PRN Reason Stop Dose Admin Albuterol 2.5 mg 02/01/23 17:55 Albuterol Sulfate Neb 2.5 Mg/3 Ml Inh INHALATION Q4HRT PRN Cough Alvimopan 12 mg 02/01/23 09:00 02/03/23 09:10 Alvimopan 12 Mg Capsule PO 02/08/23 08:59 12 mg Q12HR JOHN Administration Aspirin 325 mg 02/03/23 08:00 Aspirin 325 Mg Tablet PO DAILY@0800 [facility] Enoxaparin Sodium 40 mg 01/31/23 09:00 02/03/23 09:10 Enoxaparin 40 Mg/0.4 Ml Syringe SUB-Q 40 mg DAILY JOHN Administration Famotidine 20 mg 01/31/23 09:00 02/03/23 09:11 Famotidine 20 Mg/2 Ml Vial IV PUSH 20 mg Q12HR JOHN Administration Multivitamins 2.5 ml/ 2,005 mls @ 60 mls/hr 01/31/23
[2023-02-03 12:53] LABS: Alanine Aminotransferase 104 U/L (6-35); Albumin Level 2.9 g/dL (3.5-5.1); Alkaline Phosphatase 69 U/L (38-126); Anion Gap 1 mmol/L (8-16); Aspartate Amino Transferase 31 U/L (14-36); Bilirubin,Total 1.2 mg/dL (0.2-1.3); Blood Urea Nitrogen 13 mg/dL (7-17); Calcium 7.7 mg/dL (8.4-10.2); Carbon Dioxide 33 mmol/L (22-30); Chloride 101 mmol/L (98-107); Estimated CRCL calculation 67 ml/min; Estimated Glomerular Filt Rate > 60; Glucose 148 mg/dL (65-110); Potassium 3.3 mmol/L (3.4-5.0); Sodium 135 mmol/L (137-145)
--- NOTE | 2023-02-03 13:01 | PCPTNOTE ---
Attempted to see patient for PT, however patient reported not right now and that she wants to rest.
[2023-02-03] MEDS: MORPHINE SULFATE (*CRX) 4 MG/ML INJ IV PUSH ×4 (13:37→21:47)
[2023-02-03 14:33] VITALS: BP 129/70; PULSE 104; RESP 18; TEMP 36.6; O2SAT 96
--- NOTE | 2023-02-03 14:45 | WPDGIPROGNO ---
Progress Note: A&P Assessment and Plan (1) Ileus: Code(s): K56.7 - Ileus, unspecified Status: Acute Assessment and Plan: post-op slowly recovering per surgery (2) Elevated liver enzymes: Code(s): R74.8 - Abnormal levels of other serum enzymes Status: Acute Assessment and Plan: trending down with normalization of bili multifactorial from surgery, ileus, TPN, etc (3) Acute appendicitis: Code(s): K35.80 - Unspecified acute appendicitis Status: Acute (4) Protein calorie malnutrition: Qualifiers: Protein-calorie malnutrition severity: mild Qualified Code(s): E44.1 - Mild protein-calorie malnutrition Code(s): E46 - Unspecified protein-calorie malnutrition Status: Acute Assessment and Plan: on tpn (5) S/P appendectomy: Code(s): Z90.49 - Acquired absence of other specified parts of digestive tract Status: Acute (6) Abdominal pain: Code(s): R10.9 - Unspecified abdominal pain Status: Acute Subjective Date/time seen: 02/03/23 14:45 Interval history: slightly better today, less pain and passed gas. Still on tpn Review of Systems Review of Systems: All systems reviewed & are unremarkable except as noted in HPI and below Exam Const: General: comfortable HENMT: Face/Nose/Sinus: Normal nares present Eyes: Sclera: sclerae normal Other: ngt in place Neck: Neck: supple Resp: Auscultation: clear to auscultation bilaterally Cardio: Rate: regular rate GI: Inspection: incision (intact with verito, minimal serous drainage, no erythema) GI Palp: Yes Soft to palpation and Yes Tenderness to palpation present (GI) (incisional) Auscultation: Hypoactive bowel sounds present Skin: General skin exam: normal color Neuro: Speech: normal speech Motor exam (neuro): 5/5 motor strength present throughout Extrem: General: normal to inspection Psych: Mental Status: mental status grossly normal Objective Data Vital Signs Vital Signs: Vital Signs - 24 hr 02/02/23 17:28 02/02/23 18:27 02/02/23 20:31 Temperature 98.8 F Pulse Rate 100 99 Respiratory Rate 17 18 20 Blood Pressure 139/62 Pulse Oximetry 95 96 98 Oxygen Delivery Room Air 02/02/23 20:00 02/03/23 00:55 02/02/23 20:50 Temperature 97.3 F L Pulse Rate 95 99 Respiratory Rate 20 20 Blood Pressure 130/60 Pulse Oximetry 98 98 96 Oxygen Delivery Room Air Room Air 02/03/23 06:00 02/03/23 08:03 02/03/23 08:00 Temperature 97.8 F Pulse Rate 93 94 Respiratory Rate 20 22 H Blood Pressure 129/59 L Pulse Oximetry 98 94 Oxygen Delivery Room Air Room Air 02/03/23 14:33 Temperature 97.9 F Pulse Rate 104 H Respiratory Rate 18 Blood Pressure 129/70 Pulse Oximetry 96 Oxygen Delivery Intake/Output Intake/Output: Intake & Output 01/31/23 02/01/23 02/02/23 02/03/23 23:59 23:59 23:59 23:59 Intake Total 1450 5285 4265 3255 Output Total 1768 438 6144 1400 Balance 40 4885 2290 1855 Meds/Results Medications: Active Medications Generic Name Dose Route Start Last Admin Trade Name Freq PRN Reason Stop Dose Admin Albuterol 2.5 mg 02/01/23 17:55 Albuterol Sulfate Neb 2.5 Mg/3 Ml Inh INHALATION Q4HRT PRN Cough Alvimopan 12 mg 02/01/23 09:00 02/03/23 09:10 Alvimopan 12 Mg Capsule PO 02/08/23 08:59 12 mg Q12HR JHON Administration Enoxaparin Sodium 40 mg 01/31/23 09:00 02/03/23 09:10 Enoxaparin 40 Mg/0.4 Ml Syringe SUB-Q 40 mg DAILY JOHN Administration Famotidine 20 mg 01/31/23 09:00 02/03/23 09:11 Famotidine 20 Mg/2 Ml Vial IV PUSH 20 mg Q12HR JOHN Administration Multivitamins 2.5 ml/ 2,005 mls @ 60 mls/hr 01/31/23 11:00 02/03/23 12:35 Multivitamins 2.5 ml/ Amino IV CONT 60 mls/hr Acids/Electrolytes/Dextrose .Q24H JOHN Administration Protocol Dextrose 1,000 mls @ 50 mls/hr 01/31/23 10:28 Dextrose 10% IV CONT .Q20H PRN if PN is inte
--- NOTE | 2023-02-03 16:40 | PC.NURSE ---
spoke with pt about my conversation with Dr Tee and that he stated since pt had a BM that she could have NG removed, pt states she is reluctant to have NG out at this time due to possibility of having to have it replaced, we reviewed that we will wait for awhile and see how she feels after pain med and see if she feels up to having it removed
[2023-02-03 20:24] VITALS: BP 122/58; PULSE 97; RESP 16; TEMP 37.1; O2SAT 98
[2023-02-03 20:53] VITALS: PULSE 100; O2SAT 97
--- NOTE | 2023-02-03 21:22 | PC.NURSE ---
Patient asked if she needs to continue taking Alvimopan since she has had 3 bowel movements today. Spoke with Dr. Tee and he states that medication should be continued up until discharge or d/c'd per surgery.
[2023-02-03] MEDS: ZOLPIDEM TARTRATE (*CRX) 2.5 MG TABLET PO (21:43)
[2023-02-04 00:38] LABS: Glucose Point of Care 175 mg/dl (65-105)
[2023-02-04 04:37] VITALS: BP 105/50; PULSE 87; RESP 20; TEMP 36.6; O2SAT 100
[2023-02-04] MEDS: MORPHINE SULFATE (*CRX) 4 MG/ML INJ IV PUSH ×2 (04:52→07:36)
[2023-02-04] MEDS: CENTRAL LINE FLUSH 10 ML IV PUSH ×3 (04:54→20:38)
[2023-02-04 05:49] LABS: Glucose Point of Care 144 mg/dl (65-105)
[2023-02-04 06:37] LABS: Anion Gap 2 mmol/L (8-16); Blood Urea Nitrogen 14 mg/dL (7-17); Calcium 7.7 mg/dL (8.4-10.2); Carbon Dioxide 33 mmol/L (22-30); Chloride 102 mmol/L (98-107); Estimated CRCL calculation 73 ml/min; Estimated Glomerular Filt Rate > 60; Glucose 131 mg/dL (65-110); Phosphorus 4.4 mg/dL (2.5-4.5); Potassium 3.1 mmol/L (3.4-5.0); Sodium 137 mmol/L (137-145)
[2023-02-04 08:12] LABS: Alanine Aminotransferase 82 U/L (6-35); Alkaline Phosphatase 81 U/L (38-126); Aspartate Amino Transferase 27 U/L (14-36); Bilirubin,Total 1.3 mg/dL (0.2-1.3)
[2023-02-04] MEDS: POTASSIUM CHLORIDE INJ 40 MEQ in SODIUM CHLORIDE 0.9% IV 500 ML 130 MEQ IVPB (09:08)
[2023-02-04] MEDS: ALVIMOPAN 12 MG CAPSULE PO ×2 (09:09→20:38)
[2023-02-04] MEDS: FAMOTIDINE 20 MG/2 ML VIAL IV PUSH (09:09)
[2023-02-04] MEDS: ENOXAPARIN 40 MG/0.4 ML SYRINGE SUB-Q (09:10)
[2023-02-04] MEDS: FAT EMULSIONS IV 20% 250 ML 20.83 ML IVPB (09:13)
--- NOTE | 2023-02-04 09:56 | PM.PNGS ---
Progress Note: A&P Assessment and Plan (1) Acute appendicitis: Code(s): K35.80 - Unspecified acute appendicitis Status: Acute Assessment and Plan: Advance to full liquids today Transition to oral pain meds Increase activity (2) Ileus: Code(s): K56.7 - Ileus, unspecified Status: Acute Assessment and Plan: Resolving (3) Protein calorie malnutrition: Qualifiers: Protein-calorie malnutrition severity: mild Qualified Code(s): E44.1 - Mild protein-calorie malnutrition Code(s): E46 - Unspecified protein-calorie malnutrition Status: Acute Assessment and Plan: Stop TPN after current bag Subjective Subjective Date/Time Seen: 02/04/23 09:56 Interval history: Bowels moving. NG and Coates removed yesterday afternoon. Tolerating clears. Urinating without difficulty. Pain controlled. Exam GI: Inspection: non-distended and incision (intact with verito, minimal serous drainage.) GI Palp: Yes Soft to palpation and Yes Tenderness to palpation present (GI) (incisional) Auscultation: normal bowel sounds Objective Data Vital Signs Vital Signs: Vital Signs - 24 hr 02/03/23 14:33 02/03/23 20:24 02/03/23 20:53 Temperature 36.6 C 37.1 C Pulse Rate 104 H 97 100 Respiratory Rate 18 16 Blood Pressure 129/70 122/58 L Pulse Oximetry 96 98 97 Oxygen Delivery Room Air 02/03/23 20:00 02/04/23 04:37 Temperature 36.6 C Pulse Rate 87 Respiratory Rate 20 Blood Pressure 105/50 L Pulse Oximetry 100 Oxygen Delivery Room Air Intake/Output Intake/Output: Intake & Output 02/01/23 02/02/23 02/03/23 02/04/23 23:59 23:59 23:59 23:59 Intake Total 5285 4265 3255 100 Output Total 400 7393 2606 Balance 2647 3297 427 100 Meds/Results Medications: Active Medications Generic Name Dose Route Start Last Admin Trade Name Freq PRN Reason Stop Dose Admin Acetaminophen 1,000 mg 02/04/23 09:53 Acetaminophen 500 Mg Tablet PO Q6H PRN Mild Pain (1-3) or Fever Albuterol 2.5 mg 02/01/23 17:55 Albuterol Sulfate Neb 2.5 Mg/3 Ml Inh INHALATION Q4HRT PRN Cough Alvimopan 12 mg 02/01/23 09:00 02/04/23 09:09 Alvimopan 12 Mg Capsule PO 02/08/23 08:59 12 mg Q12HR JOHN Administration Enoxaparin Sodium 40 mg 01/31/23 09:00 02/04/23 09:10 Enoxaparin 40 Mg/0.4 Ml Syringe SUB-Q 40 mg DAILY JOHN Administration Dextrose 1,000 mls @ 50 mls/hr 01/31/23 10:28 Dextrose 10% IV CONT .Q20H PRN if PN is interrupted Potassium Chloride 40 meq/ 520 mls @ 130 mls/hr 02/04/23 07:31 02/04/23 09:08 Sodium Chloride IVPB 02/04/23 11:30 130 mls/hr ONCE ONE Administration Ibuprofen 800 mg 02/04/23 09:53 Ibuprofen 400 Mg Tablet PO Q8H PRN Pain Rated 4-6 Lorazepam 1 mg 02/02/23 10:38 Lorazepam Inj (*Crx) 2 Mg/Ml Vial IV PUSH Q6H PRN Anxiety Morphine Sulfate 2 mg 01/31/23 01:10 Morphine Sulfate (*Crx) 2 Mg/Ml Inj IV PUSH Q2H PRN Pain Rated 4-6 Morphine Sulfate 4 mg 01/31/23 01:10 02/04/23 07:36 Morphine Sulfate (*Crx) 4 Mg/Ml Inj IV PUSH 4 mg Q2H PRN Administration Pain Rated 7-10 Naloxone HCl 0.1 mg 01/31/23 01:10 Naloxone Hcl 0.4 Mg/Ml Vial IV PUSH Q2M PRN Opiate Reversal Ondansetron HCl 4 mg 01/31/23 01:10 Ondansetron Inj 4 Mg/2 Ml Vial IV PUSH Q4H PRN Nausea And Vomiting Oxymetazoline HCl 1 spray 02/02/23 15:42 02/03/23 09:15 Oxymetazoline Hcl 0.05% Nguyễn 15 Ml Btl (*Bkc) NASAL 1 spray Q12HR PRN Administration Congestion Phenol 1 spray 01/31/23 16:26 Phenol/Sod Pheno [place] (*Bkc) MUCOUS MEM PRN PRN Sore Throat Sodium Chloride 10 ml 01/31/23 14:00 02/04/23 04:54 Central Line Flush IV PUSH 10 ml Q8HR JOHN Administration Sodium Chloride 10 ml 01/31/23 13:05 Central Line Flush IV PUSH PRN PRN with TPN bag changes Sodium Chloride
--- NOTE | 2023-02-04 10:22 | PM.IMPN ---
Progress Note: A&P Assessment and Plan (1) S/P appendectomy: Code(s): Z90.49 - Acquired absence of other specified parts of digestive tract Status: Acute Assessment and Plan: On 01/31/2023 the patient had laparoscopic converted to open appendectomy, extensive lysis of adhesion and small-bowel resection. Postop care per surgery. DVT prophylaxis per surgery. The patient has SCDs and Lovenox. The patient has a PICC line in for TPN that was discontinued on 02/04/2023 Advanced diet as tolerated Encouraged her to use incentive spirometer. Continue with p.r.n. albuterol. Analgesics per surgery. (2) Elevated liver enzymes: Code(s): R74.8 - Abnormal levels of other serum enzymes Status: Acute Assessment and Plan: Total bili and LFTs trending down. Today's T bili 1.3, AST and ALT IV fluids discontinued Subjective Date/time seen: 02/04/23 10:22 Interval history: Patient up to the chair feeling better today. She is still continue to have lower abdominal pain and back pain but every day she has improved a little. She has passed gas and had a bowel movement at this time. Patient advanced to clear liquids today. Advised her to increase her activity and start walking. Insert all of her questions to the best my ability. Review of Systems Review of Systems: All systems reviewed & are unremarkable except as noted in HPI and below Exam Narrative: GENERAL: Uncomfortable, no acute distress HENMT: moist mucous membranes EYES: EOM intact b/l RESPIRATORY: clear to auscultation CARDIO: RRR GI: soft, diffuse abdominal tenderness to palpation, dressing dry and intact over the abdomen, bowel sounds x4 EXTREMITIES: no edema, redness or tenderness Objective Data Vital Signs Vital Signs: Vital Signs - 24 hr 02/03/23 14:33 02/03/23 20:24 02/03/23 20:53 Temperature 97.9 F 98.7 F Pulse Rate 104 H 97 100 Respiratory Rate 18 16 Blood Pressure 129/70 122/58 L Pulse Oximetry 96 98 97 Oxygen Delivery Room Air 02/03/23 20:00 02/04/23 04:37 Temperature 98 F Pulse Rate 87 Respiratory Rate 20 Blood Pressure 105/50 L Pulse Oximetry 100 Oxygen Delivery Room Air Intake/Output Intake/Output: Intake & Output 02/01/23 02/02/23 02/03/23 02/04/23 23:59 23:59 23:59 23:59 Intake Total 5247 4254 3255 100 Output Total 400 1975 2601 Balance 4882 8095 656 100 Meds/Results Medications: Active Medications Generic Name Dose Route Start Last Admin Trade Name Freq PRN Reason Stop Dose Admin Acetaminophen 1,000 mg 02/04/23 09:53 Acetaminophen 500 Mg Tablet PO Q6H PRN Mild Pain (1-3) or Fever Albuterol 2.5 mg 02/01/23 17:55 Albuterol Sulfate Neb 2.5 Mg/3 Ml Inh INHALATION Q4HRT PRN Cough Alvimopan 12 mg 02/01/23 09:00 02/04/23 09:09 Alvimopan 12 Mg Capsule PO 02/08/23 08:59 12 mg Q12HR JOHN Administration Enoxaparin Sodium 40 mg 01/31/23 09:00 02/04/23 09:10 Enoxaparin 40 Mg/0.4 Ml Syringe SUB-Q 40 mg DAILY JOHN Administration Dextrose 1,000 mls @ 50 mls/hr 01/31/23 10:28 Dextrose 10% IV CONT .Q20H PRN if PN is interrupted Potassium Chloride 40 meq/ 520 mls @ 130 mls/hr 02/04/23 07:31 02/04/23 09:08 Sodium Chloride IVPB 02/04/23 11:30 130 mls/hr ONCE ONE Administration Ibuprofen 800 mg 02/04/23 09:53 Ibuprofen 400 Mg Tablet PO Q8H PRN Pain Rated 4-6 Lorazepam 1 mg 02/02/23 10:38 Lorazepam Inj (*Crx) 2 Mg/Ml Vial IV PUSH Q6H PRN Anxiety Morphine Sulfate 2 mg 01/31/23 01:10 Morphine Sulfate (*Crx) 2 Mg/Ml Inj IV PUSH Q2H PRN Pain Rated 4-6 Morphine Sulfate 4 mg 01/31/23 01:10 02/04/23 07:36 Morphine Sulfate (*Crx) 4 Mg/Ml Inj IV PUSH 4 mg Q2H PRN Administration Pain Rated 7-10 Naloxone HCl 0.1 mg 01/31/23 01:10 Naloxone Hcl 0.4 Mg/Ml Vial IV PUSH Q2M PRN Opiate Reversal
[2023-02-04] MEDS: traMADol HCL (*CRX) 50 MG TABLET PO ×3 (11:20→22:55)
[2023-02-04 12:36] LABS: Glucose Point of Care 120 mg/dl (65-105)
[2023-02-04 14:26] VITALS: BP 116/58; PULSE 91; RESP 12; TEMP 36.6; O2SAT 99
[2023-02-04] MEDS: ONDANSETRON INJ 4 MG/2 ML VIAL IV PUSH (17:16)
--- NOTE | 2023-02-04 17:57 | WPDGIPROGNO ---
Progress Note: A&P Assessment and Plan (1) Ileus: Code(s): K56.7 - Ileus, unspecified Status: Acute Assessment and Plan: post-op but resolved liquid diet and will advance per surgery recommendations she also had BM today (2) Elevated liver enzymes: Code(s): R74.8 - Abnormal levels of other serum enzymes Status: Acute Assessment and Plan: trending down with normalization of bili multifactorial from surgery, ileus, TPN, etc will follow from afar, call if questions (3) Acute appendicitis: Code(s): K35.80 - Unspecified acute appendicitis Status: Acute (4) Protein calorie malnutrition: Qualifiers: Protein-calorie malnutrition severity: mild Qualified Code(s): E44.1 - Mild protein-calorie malnutrition Code(s): E46 - Unspecified protein-calorie malnutrition Status: Acute Assessment and Plan: no more tpn as long as she keeps tolerating diet (5) Abdominal pain: Code(s): R10.9 - Unspecified abdominal pain Status: Acute Assessment and Plan: improved Subjective Date/time seen: 02/04/23 17:57 Interval history: ngt removed, today had BM, less abdominal pain and tolerated liquid diet, doing better Review of Systems Review of Systems: All systems reviewed & are unremarkable except as noted in HPI and below Exam Const: General: comfortable HENMT: Face/Nose/Sinus: Normal nares present Eyes: Sclera: sclerae normal Neck: Neck: supple Resp: Auscultation: clear to auscultation bilaterally Cardio: Rate: regular rate GI: Inspection: non-distended and incision (intact with verito, minimal serous drainage.) GI Palp: Yes Soft to palpation and Yes Tenderness to palpation present (GI) (incisional) Auscultation: normal bowel sounds Skin: General skin exam: normal color Neuro: Speech: normal speech Extrem: General: normal to inspection Psych: Mental Status: mental status grossly normal Objective Data Vital Signs Vital Signs: Vital Signs - 24 hr 02/03/23 20:24 02/03/23 20:53 02/03/23 20:00 Temperature 98.7 F Pulse Rate 97 100 Respiratory Rate 16 Blood Pressure 122/58 L Pulse Oximetry 98 97 Oxygen Delivery Room Air Room Air 02/04/23 04:37 02/04/23 14:26 Temperature 98 F 97.8 F Pulse Rate 87 91 Respiratory Rate 20 12 Blood Pressure 105/50 L 116/58 L Pulse Oximetry 100 99 Oxygen Delivery Intake/Output Intake/Output: Intake & Output 02/01/23 02/02/23 02/03/23 02/04/23 23:59 23:59 23:59 23:59 Intake Total 5265 4265 3255 2155 Output Total 400 1975 2601 Balance 4885 2295 655 2155 Meds/Results Medications: Active Medications Generic Name Dose Route Start Last Admin Trade Name Freq PRN Reason Stop Dose Admin Acetaminophen 1,000 mg 02/04/23 09:53 Acetaminophen 500 Mg Tablet PO Q6H PRN Mild Pain (1-3) or Fever Albuterol 2.5 mg 02/01/23 17:55 Albuterol Sulfate Neb 2.5 Mg/3 Ml Inh INHALATION Q4HRT PRN Cough Alvimopan 12 mg 02/01/23 09:00 02/04/23 09:09 Alvimopan 12 Mg Capsule PO 02/08/23 08:59 12 mg Q12HR JOHN Administration Enoxaparin Sodium 40 mg 01/31/23 09:00 02/04/23 09:10 Enoxaparin 40 Mg/0.4 Ml Syringe SUB-Q 40 mg DAILY JOHN Administration Dextrose 1,000 mls @ 50 mls/hr 01/31/23 10:28 Dextrose 10% IV CONT .Q20H PRN if PN is interrupted Ibuprofen 800 mg 02/04/23 09:53 Ibuprofen 400 Mg Tablet PO Q8H PRN Pain Rated 4-6 Lorazepam 1 mg 02/02/23 10:38 Lorazepam Inj (*Crx) 2 Mg/Ml Vial IV PUSH Q6H PRN Anxiety Morphine Sulfate 2 mg 01/31/23 01:10 Morphine Sulfate (*Crx) 2 Mg/Ml Inj IV PUSH Q2H PRN Pain Rated 4-6 Morphine Sulfate 4 mg 01/31/23 01:10 02/04/23 07:36 Morphine Sulfate (*Crx) 4 Mg/Ml Inj IV PUSH 4 mg Q2H PRN Administration Pain Rated 7-10 Naloxone HCl 0.1 mg 01/31/23 01:10 Naloxone Hcl 0.4 Mg/Ml Vial IV PUSH Q
[2023-02-04 19:26] VITALS: BP 121/58; PULSE 86; RESP 20; TEMP 36.4; O2SAT 98
[2023-02-04] MEDS: IBUPROFEN 400 MG TABLET 800 MG PO (20:42)
[2023-02-04 21:24] LABS: Glucose Point of Care 113 mg/dl (65-105)
[2023-02-05 04:41] VITALS: BP 106/54; PULSE 71; RESP 16; TEMP 36.6; O2SAT 97
[2023-02-05] MEDS: traMADol HCL (*CRX) 50 MG TABLET PO ×3 (05:25→21:30)
[2023-02-05] MEDS: CENTRAL LINE FLUSH 10 ML IV PUSH ×3 (05:26→21:24)
[2023-02-05 05:32] LABS: Hematocrit 27.5 % (37.0-47.0); Hemoglobin 9.4 g/dL (12.0-15.0); Mean Corpuscular HGB Conc 34.2 g/dl (32-36); Mean Corpuscular Hemoglobin 30.9 pg (26-34); Mean Corpuscular Volume 90.5 fl (80-100); Mean Platelet Volume 8.5 fl (7.4-10.4); Platelet Count Result 144 k/mm3 (150-375); Red Blood Count 3.04 M/mm3 (4.2-5.4); Red Cell Distribution Width 12.6 % (11.5-14.5); White Blood Count 8.2 K/mm3 (4.5-10.0)
[2023-02-05 05:49] LABS: Alanine Aminotransferase 66 U/L (6-35); Albumin Level 2.8 g/dL (3.5-5.1); Alkaline Phosphatase 81 U/L (38-126); Anion Gap 4 mmol/L (8-16); Aspartate Amino Transferase 32 U/L (14-36); Bilirubin,Total 1.6 mg/dL (0.2-1.3); Blood Urea Nitrogen 14 mg/dL (7-17); Calcium 7.8 mg/dL (8.4-10.2); Carbon Dioxide 30 mmol/L (22-30); Chloride 103 mmol/L (98-107); Estimated CRCL calculation 59 ml/min; Estimated Glomerular Filt Rate 58; Glucose 114 mg/dL (65-110); Potassium 3.6 mmol/L (3.4-5.0); Sodium 137 mmol/L (137-145)
[2023-02-05] MEDS: ENOXAPARIN 40 MG/0.4 ML SYRINGE SUB-Q (09:03)
[2023-02-05] MEDS: ALVIMOPAN 12 MG CAPSULE PO ×2 (09:03→21:24)
[2023-02-05] MEDS: SODIUM CHLORIDE 0.9% IV 1,000 ML 75 ML IV CONT ×2 (09:49→23:23)
[2023-02-05] MEDS: polyethylene glycoL 3350 17 GM POWD.PACK PO (09:49)
--- NOTE | 2023-02-05 09:51 | PM.PNGS ---
Progress Note: A&P Assessment and Plan (1) Acute appendicitis: Code(s): K35.80 - Unspecified acute appendicitis Status: Acute Assessment and Plan: will back down to clear liquids with patient feeling bloated Add MiraLax to bowel regimen, continue Entereg start IV saline to prevent dehydration while not taking as much po await further return of bowel function (2) Ileus: Code(s): K56.7 - Ileus, unspecified Status: Acute Assessment and Plan: Resolving (3) Protein calorie malnutrition: Qualifiers: Protein-calorie malnutrition severity: mild Qualified Code(s): E44.1 - Mild protein-calorie malnutrition Code(s): E46 - Unspecified protein-calorie malnutrition Status: Acute Assessment and Plan: TPN discontinued yesterday, will add Ensure clear today to continue with some nutrition. Subjective Subjective Date/Time Seen: 02/05/23 09:51 Interval history: A little boating yesterday after eating full liquids. Not passing flatus today, last BM was yesterday. Not much appetite and not drinking much water. Pain controlled and ambulating in halls frequently. Exam GI: Inspection: non-distended and incision (intact with verito) GI Palp: Yes Soft to palpation and Yes Tenderness to palpation present (GI) (incisional) Auscultation: normal bowel sounds Objective Data Vital Signs Vital Signs: Vital Signs - 24 hr 02/04/23 14:26 02/04/23 19:26 02/05/23 04:41 Temperature 36.6 C 36.4 C L 36.6 C Pulse Rate 91 86 71 Respiratory Rate 12 20 16 Blood Pressure 116/58 L 121/58 L 106/54 L Pulse Oximetry 99 98 97 Intake/Output Intake/Output: Intake & Output 02/02/23 02/03/23 02/04/23 02/05/23 23:59 23:59 23:59 23:59 Intake Total 4299 3255 2255 400 Output Total 4164 2601 Balance 229 654 2255 400 Meds/Results Medications: Active Medications Generic Name Dose Route Start Last Admin Trade Name Freq PRN Reason Stop Dose Admin Acetaminophen 1,000 mg 02/04/23 09:53 Acetaminophen 500 Mg Tablet PO Q6H PRN Mild Pain (1-3) or Fever Albuterol 2.5 mg 02/01/23 17:55 Albuterol Sulfate Neb 2.5 Mg/3 Ml Inh INHALATION Q4HRT PRN Cough Alvimopan 12 mg 02/01/23 09:00 02/05/23 09:03 Alvimopan 12 Mg Capsule PO 02/08/23 08:59 12 mg Q12HR JOHN Administration Enoxaparin Sodium 40 mg 01/31/23 09:00 02/05/23 09:03 Enoxaparin 40 Mg/0.4 Ml Syringe SUB-Q 40 mg DAILY JOHN Administration Dextrose 1,000 mls @ 50 mls/hr 01/31/23 10:28 Dextrose 10% IV CONT .Q20H PRN if PN is interrupted Sodium Chloride 1,000 mls @ 75 mls/hr 02/05/23 09:05 Normal Saline Iv IV CONT .[id number] JOHN Ibuprofen 800 mg 02/04/23 09:53 02/04/23 20:42 Ibuprofen 400 Mg Tablet PO 800 mg Q8H PRN Administration Pain Rated 4-6 Lorazepam 1 mg 02/02/23 10:38 Lorazepam Inj (*Crx) 2 Mg/Ml Vial IV PUSH Q6H PRN Anxiety Morphine Sulfate 2 mg 01/31/23 01:10 Morphine Sulfate (*Crx) 2 Mg/Ml Inj IV PUSH Q2H PRN Pain Rated 4-6 Morphine Sulfate 4 mg 01/31/23 01:10 02/04/23 07:36 Morphine Sulfate (*Crx) 4 Mg/Ml Inj IV PUSH 4 mg Q2H PRN Administration Pain Rated 7-10 Naloxone HCl 0.1 mg 01/31/23 01:10 Naloxone Hcl 0.4 Mg/Ml Vial IV PUSH Q2M PRN Opiate Reversal Ondansetron HCl 4 mg 01/31/23 01:10 02/04/23 17:16 Ondansetron Inj 4 Mg/2 Ml Vial IV PUSH 4 mg Q4H PRN Administration Nausea And Vomiting Oxymetazoline HCl 1 spray 02/02/23 15:42 02/03/23 09:15 Oxymetazoline Hcl 0.05% Nguyễn 15 Ml Btl (*Bkc) NASAL 1 spray Q12HR PRN Administration Congestion Phenol 1 spray 01/31/23 16:26 Phenol/Sod Pheno [place] (*Bkc) MUCOUS MEM PRN PRN Sore Throat Polyethylene Glycol 17 gm 02/05/23 09:05 Polyethylene Glycol 3350 17 Gm Powd.Pack PO QAM JOHN Sodium Chloride 10 ml 01/31/23 14:00 02/05/23 05:26 Centr
--- NOTE | 2023-02-05 11:56 | PM.IMPN ---
Progress Note: A&P Assessment and Plan (1) S/P appendectomy: Code(s): Z90.49 - Acquired absence of other specified parts of digestive tract Status: Acute Assessment and Plan: On 01/31/2023 the patient had laparoscopic converted to open appendectomy, extensive lysis of adhesion and small-bowel resection. Postop care per surgery. DVT prophylaxis per surgery. The patient has SCDs and Lovenox. The patient has a PICC line in for TPN that was discontinued on 02/04/2023 Advanced diet as tolerated Encouraged her to use incentive spirometer. Continue with p.r.n. albuterol. Analgesics per surgery. (2) Elevated liver enzymes: Code(s): R74.8 - Abnormal levels of other serum enzymes Status: Acute Assessment and Plan: Total bili and LFTs trending down. Today's T bili 1.6, AST and ALT 32/66 IV fluids restarted due to patient not tolerating clear liquids very well. Subjective Date/time seen: 02/05/23 11:56 Interval history: Patient pain improved today. Patient has not had any gas movement or bowel movement today. Patient is medically stable and will sign off. If medical intervention/management is required please contact hospitalist group. Thank you for the consultation. Review of Systems Review of Systems: All systems reviewed & are unremarkable except as noted in HPI and below Exam Narrative: GENERAL: Uncomfortable, no acute distress HENMT: moist mucous membranes EYES: EOM intact b/l RESPIRATORY: clear to auscultation CARDIO: RRR GI: soft, diffuse abdominal tenderness to palpation, dressing dry and intact over the abdomen, bowel sounds x4 EXTREMITIES: no edema, redness or tenderness Objective Data Vital Signs Vital Signs: Vital Signs - 24 hr 02/04/23 14:26 02/04/23 19:26 02/05/23 04:41 Temperature 97.8 F 97.5 F L 97.9 F Pulse Rate 91 86 71 Respiratory Rate 12 20 16 Blood Pressure 116/58 L 121/58 L 106/54 L Pulse Oximetry 99 98 97 Intake/Output Intake/Output: Intake & Output 02/02/23 02/03/23 02/04/23 02/05/23 23:59 23:59 23:59 23:59 Intake Total 4265 3255 2255 400 Output Total 1975 2601 Balance 2290 654 2255 400 Meds/Results Medications: Active Medications Generic Name Dose Route Start Last Admin Trade Name Freq PRN Reason Stop Dose Admin Acetaminophen 1,000 mg 02/04/23 09:53 Acetaminophen 500 Mg Tablet PO Q6H PRN Mild Pain (1-3) or Fever Albuterol 2.5 mg 02/01/23 17:55 Albuterol Sulfate Neb 2.5 Mg/3 Ml Inh INHALATION Q4HRT PRN Cough Alvimopan 12 mg 02/01/23 09:00 02/05/23 09:03 Alvimopan 12 Mg Capsule PO 02/08/23 08:59 12 mg Q12HR JOHN Administration Enoxaparin Sodium 40 mg 01/31/23 09:00 02/05/23 09:03 Enoxaparin 40 Mg/0.4 Ml Syringe SUB-Q 40 mg DAILY JOHN Administration Dextrose 1,000 mls @ 50 mls/hr 01/31/23 10:28 Dextrose 10% IV CONT .Q20H PRN if PN is interrupted Sodium Chloride 1,000 mls @ 75 mls/hr 02/05/23 09:05 02/05/23 09:49 Normal Saline Iv IV CONT 75 mls/hr .[id number] JOHN Administration Ibuprofen 800 mg 02/04/23 09:53 02/04/23 20:42 Ibuprofen 400 Mg Tablet PO 800 mg Q8H PRN Administration Pain Rated 4-6 Lorazepam 1 mg 02/02/23 10:38 Lorazepam Inj (*Crx) 2 Mg/Ml Vial IV PUSH Q6H PRN Anxiety Morphine Sulfate 2 mg 01/31/23 01:10 Morphine Sulfate (*Crx) 2 Mg/Ml Inj IV PUSH Q2H PRN Pain Rated 4-6 Morphine Sulfate 4 mg 01/31/23 01:10 02/04/23 07:36 Morphine Sulfate (*Crx) 4 Mg/Ml Inj IV PUSH 4 mg Q2H PRN Administration Pain Rated 7-10 Naloxone HCl 0.1 mg 01/31/23 01:10 Naloxone Hcl 0.4 Mg/Ml Vial IV PUSH Q2M PRN Opiate Reversal Ondansetron HCl 4 mg 01/31/23 01:10 02/04/23 17:16 Ondansetron Inj 4 Mg/2 Ml Vial IV PUSH 4 mg Q4H PRN Administration Nausea And Vomiting Oxymetazoline HCl 1 spray 02/02/23 15:42 02/03/23 09:15 Ox
[2023-02-05 14:29] VITALS: BP 115/64; PULSE 85; RESP 18; TEMP 36.9; O2SAT 98
[2023-02-05] MEDS: ONDANSETRON INJ 4 MG/2 ML VIAL IV PUSH ×2 (14:55→21:31)
[2023-02-05 19:31] VITALS: BP 123/66; PULSE 85; RESP 16; TEMP 37.2; O2SAT 100
[2023-02-06 04:24] VITALS: BP 125/83; PULSE 86; RESP 18; TEMP 36.8; O2SAT 98
[2023-02-06] MEDS: CENTRAL LINE FLUSH 10 ML IV PUSH ×3 (05:40→21:00)
[2023-02-06] MEDS: traMADol HCL (*CRX) 50 MG TABLET PO (06:04)
[2023-02-06 08:31] VITALS: RESP 18; O2SAT 98
[2023-02-06] MEDS: ALVIMOPAN 12 MG CAPSULE PO ×2 (08:31→21:00)
[2023-02-06] MEDS: polyethylene glycoL 3350 17 GM POWD.PACK PO (08:31)
[2023-02-06] MEDS: ENOXAPARIN 40 MG/0.4 ML SYRINGE SUB-Q (08:31)
--- NOTE | 2023-02-06 10:46 | PM.PNGS ---
Progress Note: A&P Assessment and Plan (1) Ileus: Code(s): K56.7 - Ileus, unspecified Status: Acute Assessment and Plan: slowly resolving, cont to encourage OOB/IS, cont clears for now Subjective Subjective Date/Time Seen: 02/06/23 10:46 Interval history: feels ok, still feels somewhat bloated when eating, +flatus, sarah clears Review of Systems Review of Systems: All systems reviewed & are unremarkable except as noted in HPI and below Exam Const: General: cooperative, comfortable and no acute distress Resp: Auscultation: clear to auscultation bilaterally Cardio: Rate: regular rate Rhythm: regular rhythm GI: Inspection: normal to inspection, distended and incision GI Palp: Yes abdominal tenderness, Yes Soft to palpation and Yes Tenderness to palpation present (GI) Objective Data Vital Signs Vital Signs: Vital Signs - 24 hr 02/05/23 14:29 02/05/23 19:31 02/05/23 21:05 Temperature 36.9 C 37.2 C Pulse Rate 85 85 Respiratory Rate 18 16 Blood Pressure 115/64 123/66 Pulse Oximetry 98 100 Oxygen Delivery Room Air 02/06/23 04:24 Temperature 36.8 C Pulse Rate 86 Respiratory Rate 18 Blood Pressure 125/83 Pulse Oximetry 98 Oxygen Delivery Intake/Output Intake/Output: Intake & Output 02/03/23 02/04/23 02/05/23 02/06/23 23:59 23:59 23:59 23:59 Intake Total 3255 2775 1520 150 Output Total 2601 Balance 654 2775 1520 150 Meds/Results Medications: Active Medications Generic Name Dose Route Start Last Admin Trade Name Lonq PRN Reason Stop Dose Admin Acetaminophen 1,000 mg 02/04/23 09:53 Acetaminophen 500 Mg Tablet PO Q6H PRN Mild Pain (1-3) or Fever Albuterol 2.5 mg 02/01/23 17:55 Albuterol Sulfate Neb 2.5 Mg/3 Ml Inh INHALATION Q4HRT PRN Cough Alvimopan 12 mg 02/01/23 09:00 02/06/23 08:31 Alvimopan 12 Mg Capsule PO 02/08/23 08:59 12 mg Q12HR JOHN Administration Enoxaparin Sodium 40 mg 01/31/23 09:00 02/06/23 08:31 Enoxaparin 40 Mg/0.4 Ml Syringe SUB-Q 40 mg DAILY JOHN Administration Dextrose 1,000 mls @ 50 mls/hr 01/31/23 10:28 Dextrose 10% IV CONT .Q20H PRN if PN is interrupted Sodium Chloride 1,000 mls @ 75 mls/hr 02/05/23 09:05 02/05/23 23:23 Normal Saline Iv IV CONT 75 mls/hr .[id number] JOHN Administration Ibuprofen 800 mg 02/04/23 09:53 02/04/23 20:42 Ibuprofen 400 Mg Tablet PO 800 mg Q8H PRN Administration Pain Rated 4-6 Lorazepam 1 mg 02/02/23 10:38 Lorazepam Inj (*Crx) 2 Mg/Ml Vial IV PUSH Q6H PRN Anxiety Morphine Sulfate 2 mg 01/31/23 01:10 Morphine Sulfate (*Crx) 2 Mg/Ml Inj IV PUSH Q2H PRN Pain Rated 4-6 Morphine Sulfate 4 mg 01/31/23 01:10 02/04/23 07:36 Morphine Sulfate (*Crx) 4 Mg/Ml Inj IV PUSH 4 mg Q2H PRN Administration Pain Rated 7-10 Naloxone HCl 0.1 mg 01/31/23 01:10 Naloxone Hcl 0.4 Mg/Ml Vial IV PUSH Q2M PRN Opiate Reversal Ondansetron HCl 4 mg 01/31/23 01:10 02/05/23 21:31 Ondansetron Inj 4 Mg/2 Ml Vial IV PUSH 4 mg Q4H PRN Administration Nausea And Vomiting Oxymetazoline HCl 1 spray 02/02/23 15:42 02/03/23 09:15 Oxymetazoline Hcl 0.05% Nguyễn 15 Ml Btl (*Bkc) NASAL 1 spray Q12HR PRN Administration Congestion Phenol 1 spray 01/31/23 16:26 Phenol/Sod Pheno [place] (*Bkc) MUCOUS MEM PRN PRN Sore Throat Polyethylene Glycol 17 gm 02/05/23 09:05 02/06/23 08:31 Polyethylene Glycol 3350 17 Gm Powd.Pack PO 17 gm QAM JOHN Administration Sodium Chloride 10 ml 01/31/23 14:00 02/06/23 05:40 Central Line Flush IV PUSH 10 ml Q8HR JOHN Administration Sodium Chloride 10 ml 01/31/23 13:05 Central Line Flush IV PUSH PRN PRN with TPN bag changes Sodium Chloride 20 ml 01/31/23 13:05 Central Line Flush IV PUSH PRN PRN after blood draws Tramadol HCl 50 mg 02/04/23 09:53 02/06/23 06
--- NOTE | 2023-02-06 13:05 | PCOTNOTE ---
Patient refused treatment this session due to showing and walking the unit with family this morning. Will attempt if time permitting later this date.
--- NOTE | 2023-02-06 13:15 | PM.IMPN ---
Progress Note: A&P Assessment and Plan (1) S/P appendectomy: Code(s): Z90.49 - Acquired absence of other specified parts of digestive tract Status: Acute Assessment and Plan: POD 6 S/P open appendectomy, extensive lysis of adhesions, small bowel obstruction by Dr. Quintana on 01/31/23 Currently on Clear liquids, advance per general surgery TPN DC's on 02/04/23 Pain medications ordered Anti-emetics ordered DVT Lovenox (2) Elevated liver enzymes: Code(s): R74.8 - Abnormal levels of other serum enzymes Status: Acute Assessment and Plan: Total bili and LFTs trending down. Today's T bili 1.6, AST and ALT 32/66 02/05/23 IV fluids restarted due to patient not tolerating clear liquids very well. (3) Ileus: Code(s): K56.7 - Ileus, unspecified Status: Acute Assessment and Plan: Slowly resolving Continue to encourage increased activity give one dose Reglan Time Spent With Patient Time: 36 minutes Time with patient: Greater than 35 minutes Subjective Date/time seen: 02/06/231314 Interval history: 02/06/231314 patient is lying in bed. Patient states that she is still distended in her opinion. She denies any current chest pain, shortness a breath, nausea, vomiting, diarrhea constipation. She did state that she has small bowel movement she also stated that she has been able to have gas as well. She looks pretty weak and states she is not a lot of pain. Labs and vital signs are stable at this time. 02/05/23? 11:56 Interval history: Patient pain improved today.? Patient has not had any gas movement or bowel movement today.? Patient? is medically stable and will sign off.? If medical intervention/management is required please contact hospitalist group.? Thank you for the consultation. 02/04/23? 10:22 Interval history: Patient up to the chair feeling better today.? She is still continue to have lower abdominal pain and back pain but every day she has improved a little.? She has passed gas and had a bowel movement at this time.? ? Patient advanced to clear liquids today.? Advised her to increase her activity and start walking.? Insert all of her questions to the best my ability. 06/09/23? 12:49 Interval history: Patient up to the chair with at bedside.? She is still having abdominal pain that is slightly better from yesterday.? Did hear some bowel sounds in her left upper quadrant today.? Hopeful for return of bowel function soon.? is very worried due to patient's history of abdominal surgeries.? She is not having any nausea or vomiting currently.? She has not passed any gas.? Continue to wait for bowel function to return. 02/02/23? 13:15 Pt continues to have pain in her lower abdomen and low back.? She has [employer] and was encouraged to use it. She denies n/v/d.? 02/01/23 [id number] Deborrcaden Gaitan is a 52 year old female ? Who presented to the hospital on 01/30/2023 with abdominal discomfort.? This discomfort was going on for 4 days and radiated to her back.? Patient had severe cramping.? It was worse with moving and bending.? She has had a history of having a bowel obstruction in the past and she was concerned about this being another bowel obstruction.? She had no fever chills.? The patient had extensive past surgical history from complications from cholecystectomy over 20 years ago.? On 01/31/2023 the patient had a laparoscopic converted to open appendectomy extensive lysis of adhesions of approximately 2-1/2 hours and a small-bowel resection.? Please see surgical note.? The patient is currently on a morphine pump.? She still continues to be in some discomfort.? Blood pressure is 140/ 57.? Pulse is 107.? She is afebrile at this time.? She has oxygen at 2 L per nasal can and stabbing 96%.? The patient also had a PICC line placed yesterday and was started on TPN.? The patient was admitted to inpatient status as as per surgery and the hospit
[2023-02-06 13:20] VITALS: BP 134/71; PULSE 90; RESP 20; TEMP 36.5; O2SAT 100
[2023-02-06] MEDS: SODIUM CHLORIDE 0.9% IV 1,000 ML 75 ML IV CONT (13:21)
--- NOTE | 2023-02-06 14:18 | PCPTNOTE ---
Attempted to see patient for PT, patient declined. Patient reported she was up and walked around already, and would like to rest at this time. Asked patient if she feels she needs PT still since she's up independently and patient reported no.
[2023-02-06] MEDS: METOCLOPRAMIDE HCL INJ 10 MG/2 ML VIAL IV PUSH (14:53)
[2023-02-06] MEDS: IBUPROFEN 400 MG TABLET 800 MG PO (20:59)
[2023-02-06 21:00] VITALS: BP 132/65; PULSE 94; RESP 18; TEMP 36; O2SAT 100
[2023-02-06] MEDS: OXYMETAZOLINE HCL 0.05% NAS 15 ML BTL (*BKC) 1 SPRAY NASAL (21:06)
[2023-02-07] MEDS: SODIUM CHLORIDE 0.9% IV 1,000 ML 75 ML IV CONT ×2 (04:07→20:37)
[2023-02-07 05:05] VITALS: BP 135/70; PULSE 85; RESP 20; TEMP 35.8; O2SAT 99
[2023-02-07] MEDS: CENTRAL LINE FLUSH 10 ML IV PUSH ×3 (05:45→20:38)
[2023-02-07] MEDS: ALVIMOPAN 12 MG CAPSULE PO ×2 (08:17→20:38)
[2023-02-07] MEDS: polyethylene glycoL 3350 17 GM POWD.PACK PO (08:17)
[2023-02-07] MEDS: ENOXAPARIN 40 MG/0.4 ML SYRINGE SUB-Q (08:17)
--- NOTE | 2023-02-07 09:00 | PM.IMPN ---
Progress Note: A&P Assessment and Plan (1) S/P appendectomy: Code(s): Z90.49 - Acquired absence of other specified parts of digestive tract Status: Acute Assessment and Plan: POD 7 S/P open appendectomy, extensive lysis of adhesions, small bowel obstruction by Dr. Quintana on 01/31/23 Currently on Clear liquids, advance per general surgery TPN DC's on 02/04/23 Pain medications ordered Anti-emetics ordered DVT Lovenox (2) Elevated liver enzymes: Code(s): R74.8 - Abnormal levels of other serum enzymes Status: Acute Assessment and Plan: Total bili and LFTs trending down. Today's T bili 1.6, AST and ALT 32/66 02/05/23 IV fluids restarted due to patient not tolerating clear liquids very well. (3) Ileus: Code(s): K56.7 - Ileus, unspecified Status: Acute Assessment and Plan: Slowly resolving Continue to encourage increased activity give one dose Reglan Time Spent With Patient Time: 30 minutes Time with patient: 25 - 35 minutes Subjective Date/time seen: 02/07/23 09:00 Interval history: 02/07/23 0900 Patient is doing better today. She reported having a BM. She denies any chest pain, shortness of breath, nausea, vomiting, diarrhea, constipation. She is drinking tea. 02/06/23 1315 patient is lying in bed. Patient states that she is still distended in her opinion. She denies any current chest pain, shortness a breath, nausea, vomiting, diarrhea constipation. She did state that she has small bowel movement she also stated that she has been able to have gas as well. She looks pretty weak and states she is not a lot of pain. Labs and vital signs are stable at this time. 02/05/23? 11:56 Interval history: Patient pain improved today.? Patient has not had any gas movement or bowel movement today.? Patient? is medically stable and will sign off.? If medical intervention/management is required please contact hospitalist group.? Thank you for the consultation. 02/04/23? 10:22 Interval history: Patient up to the chair feeling better today.? She is still continue to have lower abdominal pain and back pain but every day she has improved a little.? She has passed gas and had a bowel movement at this time.? ? Patient advanced to clear liquids today.? Advised her to increase her activity and start walking.? Insert all of her questions to the best my ability. 02/03/23? 12:49 Interval history: Patient up to the chair with at bedside.? She is still having abdominal pain that is slightly better from yesterday.? Did hear some bowel sounds in her left upper quadrant today.? Hopeful for return of bowel function soon.? is very worried due to patient's history of abdominal surgeries.? She is not having any nausea or vomiting currently.? She has not passed any gas.? Continue to wait for bowel function to return. 02/02/23? 13:15 Pt continues to have pain in her lower abdomen and low back.? 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 She denies n/v/d.? 02/01/23 1425 Deborrcaden Gaitan is a 52 year old female ? Who presented to the hospital on 01/30/2023 with abdominal discomfort.? This discomfort was going on for 4 days and radiated to her back.? Patient had severe cramping.? It was worse with moving and bending.? She has had a history of having a bowel obstruction in the past and she was concerned about this being another bowel obstruction.? She had no fever chills.? The patient had extensive past surgical history from complications from cholecystectomy over 20 years ago.? On 01/31/2023 the patient had a laparoscopic converted to open appendectomy extensive lysis of adhesions of approximately 2-1/2 hours and a small-bowel resection.? Please see surgical note.? The patient is currently on a morphine pump.? She still continues to be in some discomfort.? Blood pressure is 140/ 57.? Pulse is 107.? She is afebrile at this time.? She has oxygen at 2 L p
--- NOTE | 2023-02-07 10:14 | PM.PNGS ---
Progress Note: A&P Assessment and Plan (1) Ileus: Code(s): K56.7 - Ileus, unspecified Status: Acute Assessment and Plan: slowly resolving, cont OOB/IS, full liquids today Subjective Subjective Date/Time Seen: 02/07/23 10:14 Interval history: feels better, +bowel movt this morning, sarah clears Review of Systems Review of Systems: All systems reviewed & are unremarkable except as noted in HPI and below Exam Const: General: cooperative, comfortable and no acute distress GI: Inspection: normal to inspection and incision GI Palp: Yes abdominal tenderness, Yes Soft to palpation and Yes Tenderness to palpation present (GI) Objective Data Vital Signs Vital Signs: Vital Signs - 24 hr 02/06/23 13:20 02/06/23 21:00 02/06/23 20:00 Temperature 36.5 C 36.0 C L Pulse Rate 90 94 Respiratory Rate 20 18 Blood Pressure 134/71 132/65 Pulse Oximetry 100 100 Oxygen Delivery Room Air 02/07/23 05:05 02/07/23 08:20 Temperature 35.8 C L Pulse Rate 85 Respiratory Rate 20 20 Blood Pressure 135/70 Pulse Oximetry 99 99 Oxygen Delivery Room Air Intake/Output Intake/Output: Intake & Output 02/04/23 02/05/23 02/06/23 02/07/23 23:59 23:59 23:59 23:59 Intake Total 2775 1520 1390 1290 Balance 2775 1520 1390 1290 Meds/Results Medications: Active Medications Generic Name Dose Route Start Last Admin Trade Name Freq PRN Reason Stop Dose Admin Acetaminophen 1,000 mg 02/04/23 09:53 Acetaminophen 500 Mg Tablet PO Q6H PRN Mild Pain (1-3) or Fever Albuterol 2.5 mg 02/01/23 17:55 Albuterol Sulfate Neb 2.5 Mg/3 Ml Inh INHALATION Q4HRT PRN Cough Alvimopan 12 mg 02/01/23 09:00 02/07/23 08:17 Alvimopan 12 Mg Capsule PO 02/08/23 08:59 12 mg Q12HR JOHN Administration Enoxaparin Sodium 40 mg 01/31/23 09:00 02/07/23 08:17 Enoxaparin 40 Mg/0.4 Ml Syringe SUB-Q 40 mg DAILY JOHN Administration Dextrose 1,000 mls @ 50 mls/hr 01/31/23 10:28 Dextrose 10% IV CONT .Q20H PRN if PN is interrupted Sodium Chloride 1,000 mls @ 75 mls/hr 02/05/23 09:05 02/07/23 04:07 Normal Saline Iv IV CONT 75 mls/hr .[id number] JOHN Administration Ibuprofen 800 mg 02/04/23 09:53 02/06/23 20:59 Ibuprofen 400 Mg Tablet PO 800 mg Q8H PRN Administration Pain Rated 4-6 Lorazepam 1 mg 02/02/23 10:38 Lorazepam Inj (*Crx) 2 Mg/Ml Vial IV PUSH Q6H PRN Anxiety Morphine Sulfate 2 mg 01/31/23 01:10 Morphine Sulfate (*Crx) 2 Mg/Ml Inj IV PUSH Q2H PRN Pain Rated 4-6 Morphine Sulfate 4 mg 01/31/23 01:10 02/04/23 07:36 Morphine Sulfate (*Crx) 4 Mg/Ml Inj IV PUSH 4 mg Q2H PRN Administration Pain Rated 7-10 Naloxone HCl 0.1 mg 01/31/23 01:10 Naloxone Hcl 0.4 Mg/Ml Vial IV PUSH Q2M PRN Opiate Reversal Ondansetron HCl 4 mg 01/31/23 01:10 02/05/23 21:31 Ondansetron Inj 4 Mg/2 Ml Vial IV PUSH 4 mg Q4H PRN Administration Nausea And Vomiting Oxymetazoline HCl 1 spray 02/02/23 15:42 02/06/23 21:06 Oxymetazoline Hcl 0.05% Nguyễn 15 Ml Btl (*Bkc) NASAL 1 spray Q12HR PRN Administration Congestion Phenol 1 spray 01/31/23 16:26 Phenol/Sod Pheno Crawford Fishman (*Bkc) MUCOUS MEM PRN PRN Sore Throat Polyethylene Glycol 17 gm 02/05/23 09:05 02/07/23 08:17 Polyethylene Glycol 3350 17 Gm Powd.Pack PO 17 gm QAM JOHN Administration Sodium Chloride 10 ml 01/31/23 14:00 02/07/23 05:45 Central Line Flush IV PUSH 10 ml Q8HR JOHN Administration Sodium Chloride 10 ml 01/31/23 13:05 Central Line Flush IV PUSH PRN PRN with TPN bag changes Sodium Chloride 20 ml 01/31/23 13:05 Central Line Flush IV PUSH PRN PRN after blood draws Tramadol HCl 50 mg 02/04/23 09:53 02/06/23 06:04 Tramadol Hcl (*Crx) 50 Mg Tablet PO 50 mg Q6H PRN Administration Pain Rated 7-10 Zolpidem Tartrate 2.5 mg 02/04/23
--- NOTE | 2023-02-07 11:09 | PCNFU ---
Nutrition Follow-Up Complete: Inadequate energy intake related to altered GI function and NPO status as evidenced by current diet order and post GI surgery. Goal: Meet estimated needs Patient is progressing towards goal. We will continue current goal. Pt current nutrition is Clear liquids. Nutrition recommendation: advance diet as tolerated per MD orders. Last recorded weight is 89.8 kg. Bowel Motility:+BM reported 02/06 Labs Reviewed:Glu 114, BUN 58, Alb 2.8 Meds Noted: NS Skin:WNL Additional Notes: TPN discontinued 02/04. Patient stared to clear liquids. She is drinking some of the ensure clear diet supplements. Will change to mix grace flavor. Plans to advance to full liquids for lunch. Bowel sounds are active. NGT has been discontinued. Agree with diet orders. Monitor wt, labs, oral intake. Follow up every Monday and Monday.
--- NOTE | 2023-02-07 14:45 | PCPTNOTE ---
Spoke with hospitalist about pt no longer wanting to participate in skilled therapy due to being independent with gait. Hospitalist in agreed to DC of therapy orders at this time.
[2023-02-07 16:30] VITALS: BP 134/69; PULSE 101; RESP 18; TEMP 36.3; O2SAT 100
[2023-02-07 20:26] VITALS: BP 133/69; PULSE 92; RESP 21; TEMP 36.9; O2SAT 100
[2023-02-08] MEDS: ENOXAPARIN 40 MG/0.4 ML SYRINGE SUB-Q (08:12)
--- NOTE | 2023-02-08 19:20 | PC.NURSE ---
Paper documentation exists on this patient due to [facility] downtime on 02/08/23 from 0030 to 1900.
[2023-02-09 13:43] LABS: Hemoglobin 9.4 g/dL (12.0-15.0); Red Blood Count 3.06 M/mm3 (4.2-5.4); White Blood Count 9.4 K/mm3 (4.5-10.0)
[2023-02-09 13:44] LABS: Basophils Percent Auto 0.6 % (0.2-1.2); Eosinophils Absolute Auto 0.4 K/mm3 (0-0.3); Eosinophils Percent Auto 4.5 % (0-4.4); Hematocrit 27.3 % (37.0-47.0); Immature Granulocyte Absolute 0.47 K/mm3 (0.00-0.031); Lymphocytes Absolute Auto 1.19 K/mm3 (0.9-3.2); Lymphocytes Percent Auto 12.7 % (18.3-44.2); Mean Corpuscular HGB Conc 34.4 g/dl (32-36); Mean Corpuscular Hemoglobin 30.7 pg (26-34); Mean Corpuscular Volume 89.2 fl (80-100); Mean Platelet Volume 8.7 fl (7.4-10.4); Monocytes Absolute Auto 0.6 K/mm3 (0.1-0.6); Monocytes Percent Auto 6.4 % (2.6-8.5); Neutrophils Absolute Auto 6.6 K/mm3 (1.3-6.7); Neutrophils Percent Auto 70.8 % (45.5-73.1); Platelet Count Result 199 k/mm3 (150-375); Red Cell Distribution Width 12.5 % (11.5-14.5)
[2023-02-09 13:45] LABS: Basophils Absolute Auto 0.1 K/mm3 (0.0-0.1)
[2023-02-09 13:52] LABS: Anion Gap 3 mmol/L (8-16); Blood Urea Nitrogen 9 mg/dL (7-17); Carbon Dioxide 29 mmol/L (22-30); Chloride 104 mmol/L (98-107); Estimated CRCL calculation 67 ml/min; Estimated Glomerular Filt Rate > 60; Potassium 3.1 mmol/L (3.4-5.0); Sodium 136 mmol/L (137-145)
[2023-02-09 13:53] LABS: Alanine Aminotransferase 62 U/L (6-35); Albumin Level 2.8 g/dL (3.5-5.1); Alkaline Phosphatase 96 U/L (38-126); Aspartate Amino Transferase 41 U/L (14-36); Bilirubin,Total 1.2 mg/dL (0.2-1.3); Calcium 7.4 mg/dL (8.4-10.2); Glucose 104 mg/dL (65-110); Total Protein 5.3 g/dL (6.3-8.2)
--- NOTE | 2023-02-10 11:03 | PM.DS ---
DS: Admitting Diagnosis Discharge Date 02/08/23 Admitting Diagnosis acute appendicitis DS: Discharge Diagnosis Discharge Diagnosis (1) Acute appendicitis: Code(s): K35.80 - Unspecified acute appendicitis Status: Acute Assessment and Plan: status post open appendectomy, a routine postoperative care, follow-up 1 week (2) Ileus: Code(s): K56.7 - Ileus, unspecified Status: Acute Assessment and Plan: largely resolved, continue to encourage ambulation, limit pain medication (3) Elevated liver enzymes: Code(s): R74.8 - Abnormal levels of other serum enzymes Status: Acute Assessment and Plan: resolved, likely from initiation of TPN DS: Summary Hospital Course Reason for hospitalization: acute appendicitis Hospital Course: The patient is a 52-year-old female with a very complex and complicated surgical history presenting to the emergency department complaining of lower abdominal pain. Workup in the ED, including imaging, was significant for acute appendicitis. A long discussion was then had with the patient and family regarding surgery versus conservative measures. The decision was made to proceed with appendectomy. The patient was taken to the OR and open appendectomy was ultimately performed with an extensive lysis of adhesions, please see full operative report for details of that procedure. Postoperatively, the patient did well was transferred to the surgical floor. 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 The patient was also started on TPN. Slowly her ileus resolved and we were able to stop the TPN. The patient was up and ambulating with Physical therapy and Occupational therapy. We were able to slowly advance her diet. Her pain was well controlled with just p.o. Tylenol and ibuprofen. At this time she will be discharged home with follow-up in 1 week for staple removal. Status at Discharge Functional status at discharge: independent ambulation Overall status at discharge: patient is progressing back to baseline Time Spent with Patient Time attestation: Total time spent providing and/or coordinating discharge services: Time spent: Less than 30 minutes Exam Const: General: cooperative, comfortable and no acute distress Resp: Auscultation: clear to auscultation bilaterally Cardio: Rate: regular rate Rhythm: regular rhythm GI: Inspection: normal to inspection, distended and incision GI Palp: Yes abdominal tenderness, Yes Soft to palpation, Yes Tenderness to palpation present (GI), No Guarding due to palpation present (GI) and No Rigid due to palpation DS: Data Data Completed and Pending Completed studies during hospitalization: Pending at discharge 01/30/23 20:01 Surgical [PTH] Routine Surgical [PTH] Routine Labs on day of discharge: Labs from last 24 hours 02/08/23 05:00 WBC 9.4 RBC 3.06 L Hgb 9.4 L Hct 27.3 L MCV 89.2 MCH 30.7 MCHC 34.4 RDW 12.5 Plt Count 199 MPV 8.7 Immature Gran % (Auto) 5.0 H Neut % (Auto) 70.8 Lymph % (Auto) 12.7 L Blair % (Auto) 6.4 Eos % (Auto) 4.5 H Baso % (Auto) 0.6 Lymph # (Auto) 1.19 Blair # (Auto) 0.6 Eos # (Auto) 0.4 H Baso # (Auto) 0.1 Abs Immat Gran (auto) 0.47 H Absolute Neuts (auto) 6.6 Absolute Nucleated RBC 0.0 Nucleated RBC % 0.0 Sodium 136 L Potassium 3.1 L Chloride 104 Carbon Dioxide 29 Anion Gap 3 L BUN 9 D Creatinine 0.90 Estim Creat Clear Calc 67 Estimated GFR > 60 Glucose 104 Calcium 7.4 L Magnesium 2.0 Total Bilirubin 1.2 AST 41 H ALT 62 H Alkaline Phosphatase 96 Total Protein 5.3 L Albumin 2.8 L Discharge Plan Discharge Consulting providers: Stuart Doyle; Chiquita Moscoso; Pedro Pablo Rowley; Durga Werner; Lorrie Martinez; Cj Jones V.; Jackson Tee; Feroz Fink Discharging Clinician: Derik Fernandez Patient Disposition: Home, S
== END 2023-02-08 18:00 | disposition home or self-care (01) | DRG 330 ==
LOC: ANHED 17:53 → ANH2MED 18:03
PROVIDERS: Emergency Medicine; Internal Medicine Critical Care Medicine; Nurse Practitioner; Surgery; Admitting Provider Surgery; Emergency Provider Emergency Medicine; PCP Internal Medicine; Visit Provider Surgery
PROC: 0DTJ4ZZ Resection of Appendix, Percutaneous Endoscopic Approach (ICD-10-PCS; CPT 44970; principal; 2023-01-30 19:30)
DX: K35.80 Unspecified acute appendicitis (principal); K56.7 Ileus, unspecified; R74.8 Abnormal levels of other serum enzymes; Z53.31 Laparoscopic surgical procedure converted to open procedure; Z79.899 Other long term (current) drug therapy; Z88.2 Allergy status to sulfonamides; Z88.1 Allergy status to other antibiotic agents
CPT/HCPCS: 36415; 36569; 74018; 74177; 80048; 80053; 80076; 81001; 82948; 83690; 83735; 84100; 84466; 84478; 85025; 85027; 85730; 88304; 88307; 96365; 96375; 97110; 97116; 97161; 97165; 97530; 97535; 99285; A9270; C1751; G0378; J0330; J0690; J1650; J2060; J2250; J2270; J2405; J2543; J2704; J2765; J3010; J3480; J7030; J7040; J7120; Q9967

== ENCOUNTER 2023-02-15 10:13 | Outpatient (CLI) | payer BC, SELFPAY ==
--- NOTE | ~2023-02-15 | XR_ITS ---
EXAMINATION: XR abdomen obstructive series DATE: 02/15/2023 08:33 INDICATION: Abdominal pain. 2 weeks post partial small bowel removal. Vomiting bile. TECHNIQUE: Supine and upright views of the abdomen. FINDINGS: 02/08/2023 The visualized lung parenchyma is normal.. There are dilated small bowel loops with air-fluid levels. There are cholecystectomy clips. There is laparotomy staple line. No significant gas identified in t he colon. No free air. There is left basilar atelectasis. IMPRESSION: 1. Small bowel obstruction. Reviewed, dictated and finalized at location [] IMPRESSION: 1. Small bowel obstruction.
[2023-02-15 10:51] LABS: Hematocrit 34.1 % (37.0-47.0); Hemoglobin 11.3 g/dL (12.0-15.0); Mean Corpuscular HGB Conc 33.1 g/dl (32-36); Mean Corpuscular Hemoglobin 29.8 pg (26-34); Mean Platelet Volume 8.8 fl (7.4-10.4); Platelet Count Result 261 k/mm3 (150-375); Red Blood Count 3.79 M/mm3 (4.2-5.4); Red Cell Distribution Width 12.9 % (11.5-14.5); White Blood Count 8.8 K/mm3 (4.5-10.0)
[2023-02-15 11:01] LABS: Alanine Aminotransferase 34 U/L (6-35); Albumin Level 4.1 g/dL (3.5-5.1); Alkaline Phosphatase 136 U/L (38-126); Anion Gap 10 mmol/L (8-16); Aspartate Amino Transferase 25 U/L (14-36); Bilirubin,Total 1.9 mg/dL (0.2-1.3); Blood Urea Nitrogen 11 mg/dL (7-17); Calcium 8.6 mg/dL (8.4-10.2); Carbon Dioxide 25 mmol/L (22-30); Chloride 102 mmol/L (98-107); Estimated Glomerular Filt Rate > 60; Glucose 107 mg/dL (65-110); Potassium 3.9 mmol/L (3.4-5.0); Sodium 137 mmol/L (137-145)
== END 2023-02-15 10:14 | disposition home or self-care (01) ==
PROVIDERS: PCP Internal Medicine; Visit Provider Surgery
DX: K56.7 Ileus, unspecified (principal); R10.9 Unspecified abdominal pain
CPT/HCPCS: 36415; 74019; 80053; 85027

== ENCOUNTER 2023-02-21 09:39 | Inpatient (IN) | payer BC, SELFPAY ==
[2023-02-21] VITALS (9 sets, daily range): BP systolic 105–127; BP diastolic 44–85; PULSE 80–95; RESP 14–18; TEMP 36.9–38.3; O2SAT 95–99; BMI 33.6
--- NOTE | ~2023-02-21 | CT_ITS ---
CT of the Abdomen and Pelvis: Indication: Postoperative pain Technique: 2.5 mm axial scans were obtained through the abdomen and pelvis following intravenous adm inistration of 100 cc of Omnipaque 350. Dose reduction technique was used on this scan by utilizing a utomated exposure control and iterative reconstruction technique. The dose-length product (DLP) was 8 42.59 mGy-cm. COMPARISON: Findings: Scans through the lung bases demonstrate linear bibasilar scarring and/or atelectasis. There is new hypodensity at the inferior tip of the right hepatic lobe anteriorly (axial images 57-78 , coronal image 38 for example). The pancreas, adrenals and kidneys are within normal limits. Cholecy stectomy clips are present. Probable splenomegaly noted. No evidence of aortic aneurysm. No lymphade nopathy. Small bowel small bowel anastomosis is noted. There is extensive inflammatory change and infiltration the central mesentery. There is soft tissue gas collection in the right lower quadrant anterior subc utaneous soft tissues extending to the right anterior abdominal wall musculature, with possible heter ogeneous fluid collection present in the right rectus abdominis muscle, which measures up to approxim ately 5.9 x 2.7 cm (axial image 126 for example). There is wall thickening of adjacent bowel loops wh ich is likely reactive. Several probable tiny bubbles of pneumoperitoneum are present. Images through the pelvis were performed. Urinary bladder unremarkable. No adnexal mass seen. Patient is status post prior hysterectomy. Impression: Probable ill-defined right lower quadrant abdominal wall abscess with extensive local adjacent soft t issue gas in the right lower quadrant anterior subcutaneous soft tissues and the right rectus abdomin is muscle, which could reflect extension of abscess/infection into the subcutaneous soft tissues. Extensive infiltrative changes/inflammatory changes in the mesentery, which could reflect postoperati ve change or nonspecific infection. Several tiny bubbles of pneumoperitoneum are likely postoperative in nature. New hypodensity at the inferior tip of the right hepatic lobe. Developing infectious process (hepatic phlegmon/developing abscess) or hepatic infarcts are considerations. Reviewed, dictated and finalized at [facility]. Impression: Probable ill-defined right lower quadrant abdominal wall abscess with extensive local adjacent soft tissue gas in the right lower quadrant anterior subcutaneo us soft tissues and the right rectus abdominis muscle, which could reflect exte nsion of abscess/infection into the subcutaneous soft tissues. Extensive infiltrative changes/inflammatory changes in the mesentery, which cou ld reflect postoperative change or nonspecific infection. Several tiny bubbles of pneumoperitoneum are likely postoperative in nature. New hypodensity at the inferior tip of the right hepatic lobe. Developing infec tious process (hepatic phlegmon/developing abscess) or hepatic infarcts are con siderations.
[2023-02-21] MEDS: HYDROmorphone HCL INJ (*CRX) 1 MG/ML SYR IV PUSH (10:15)
[2023-02-21] MEDS: LACTATED RINGERS 1,000 ML 999 ML IV CONT ×2 (10:15)
--- NOTE | 2023-02-21 10:27 | ED.ABDPAIN ---
HPI - Abdominal Pain General Chief Complaint: Abdominal Pain Stated Complaint: ABD PAIN Time Seen by Provider: 02/21/23 09:41 Source: patient, RN notes reviewed and old records reviewed Mode of arrival: ambulatory Limitations: no limitations History of Present Illness HPI narrative: This is a 53 year old female who presents for evaluation of abdominal pain s/p appendectomy, lysis of adhesion. Patient reports having surgery that included lysis of adhesions, appendectomy, small bowel resection 3 weeks ago. She states starting 2 days ago she developed constant severe right lower abdominal pain. She also reports swelling and fullness. She has nausea but no vomiting. She denies fever or chills. She has not had bowel movement today. She had taken tramadol without relief. Dr. Quintana called prior to patient arrival and wanted call after CT and labs return. She reports pain 06/06. Related Data Home Medications Medication Instructions Recorded Confirmed simvastatin 10 mg tablet 10 mg PO HS 01/30/23 02/21/23 Allergies Allergy/AdvReac Type Severity Reaction Status Date / Time erythromycin base Allergy Mild Rash Verified 02/21/23 12:48 Sulfa (Sulfonamide Allergy Unknown Unknown Verified 02/21/23 12:48 Antibiotics) sulfanilamide Allergy Unknown Rash Verified 02/21/23 12:48 vancomycin Allergy Unknown Unknown Verified 02/21/23 12:48 Review of Systems Constitutional: Constitutional: Denies weakness Cardiovascular: Cardiovascular: Denies syncope, Denies rapid heart rate, Denies irregular heart rhythm, Denies leg edema and Denies dyspnea Respiratory: Respiratory: Denies chest congestion, Denies hemoptysis, Denies excessive phlegm production and Denies dyspnea Gastrointestinal: Gastrointestinal: Reports abdominal pain, Denies hematochezia, Denies diarrhea, Reports nausea and Denies vomiting Genitourinary: Genitourinary: Denies hematuria and Denies dysuria Musculoskeletal: Musculoskeletal: Denies joint swelling, Denies loss of height and Denies muscle weakness Neurologic: Denies syncope, Denies focal weakness and Denies weakness PMFSH Past Medical History Medical History History of small bowel obstruction Hypercholesterolemia Surgical History Surgical History H/O abdominal surgery she had exploratory laparotomy. She also had a benign abdominal mass removed. She also had repair of her hepatic artery after her gallbladder was removed. H/O: hysterectomy History of section, classical History of cholecystectomy History of removal of ovarian cyst S/P appendectomy Laparoscopic converted to open appendectomy, extensive lysis of adhesions of approximately 2-1/2 hours, small-bowel resection 01/31/[address] Quintana. Family History Family History Other Family history of arthritis Family history of hypercholesterolemia Family history of kidney disease Social History Social History Social History: The patient lives with her and she has 2 children. 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 She does not use any alcohol or illicit drugs. Code status full code Smoking status: Never smoker Alcohol intake: never Substance use: never Substance use type: does not use Lack of Transportation: No Lack of Food: Never True Current Housing: I Have Housing Concerned About Future Housing: No Difficulty Paying Gas/Electric Bills: No Difficulty Paying for Meds: No Currently Unemployed: No Education: Master's Degree or Higher Difficulty w/ Childcare or Family Care: No Spiritual care concerns: No Exam Const: General: no acute distress, alert and ill appearing; No diaphoretic Orientation/consciousness: patient orirohini
[2023-02-21 10:31] LABS: Basophils Percent Auto 0.2 % (0.2-1.2); Eosinophils Percent Auto 0.3 % (0-4.4); Hematocrit 27.4 % (37.0-47.0); Hemoglobin 9.1 g/dL (12.0-15.0); Immature Granulocyte Absolute 0.04 K/mm3 (0.00-0.031); Immature Granulocyte Percent A 0.4 % (0-0.5); Lymphocytes Absolute Auto 0.74 K/mm3 (0.9-3.2); Lymphocytes Percent Auto 7.5 % (18.3-44.2); Mean Corpuscular HGB Conc 33.2 g/dl (32-36); Mean Corpuscular Hemoglobin 28.6 pg (26-34); Mean Corpuscular Volume 86.2 fl (80-100); Monocytes Absolute Auto 0.9 K/mm3 (0.1-0.6); Monocytes Percent Auto 8.8 % (2.6-8.5); Neutrophils Absolute Auto 8.2 K/mm3 (1.3-6.7); Neutrophils Percent Auto 82.8 % (45.5-73.1); Platelet Count Result 199 k/mm3 (150-375); Red Blood Count 3.18 M/mm3 (4.2-5.4); Red Cell Distribution Width 12.3 % (11.5-14.5); White Blood Count 9.9 K/mm3 (4.5-10.0)
[2023-02-21] MEDS: ONDANSETRON INJ 4 MG/2 ML VIAL IV PUSH (10:32)
--- NOTE | 2023-02-21 10:35 | PC.NURSE ---
pt unable to urinate at this time
[2023-02-21 10:41] LABS: Alanine Aminotransferase 31 U/L (6-35); Albumin Level 3.2 g/dL (3.5-5.1); Alkaline Phosphatase 108 U/L (38-126); Anion Gap 9 mmol/L (8-16); Aspartate Amino Transferase 28 U/L (14-36); Bilirubin,Total 1.7 mg/dL (0.2-1.3); Blood Urea Nitrogen 9 mg/dL (7-17); Calcium 8.1 mg/dL (8.4-10.2); Carbon Dioxide 26 mmol/L (22-30); Chloride 94 mmol/L (98-107); Estimated CRCL calculation 70 ml/min; Estimated Glomerular Filt Rate > 60; Glucose 158 mg/dL (65-110); Lipase 143 U/L (23-300); Potassium 3.7 mmol/L (3.4-5.0); Sodium 129 mmol/L (137-145)
--- NOTE | 2023-02-21 10:49 | PC.NURSE ---
pt sts that 3 weeks ago she had abd surgery. pt sts that they removed 3 feet of intestines. Pt skin around area is red and warm to touch. incision is closed and no drainage is noted. area of skin is marked with a black sharpie. pt is axox4, abc are wnl nad. airway is patent,spontaneous nad. pt sts pain is 9/10 and pain meds given ivp. IV is infusing w/o difficulty. pt placed on manager monitoring NSR w/o ectopy is noted and vss and will continue to monitor
[2023-02-21] MEDS: PIPERACILLN/TAZ 3.375GM/NS50ML 3.375 GM/50 ML BAG IVPB ×2 (11:49→18:29)
--- NOTE | 2023-02-21 11:54 | PC.NURSE ---
Addendum entered by Kylee Erickson RN 02/21/23 12:27: pt does want pain meds. chart in error Original Note: pt sts that pain is now a 3/10 and doesn't want pain medications. assessment unchanged vss and will continue to monitor
[2023-02-21 12:12] LABS: Appearance Urine Clear (Clear); Bacteria Urine 1+ /hpf; Bilirubin Urine Negative (Negative); Blood Urine Negative (Negative); Color Urine Yellow (Yellow); Glucose Urine UA Negative (Negative); Ketones Urine Negative (Negative); Leukocyte Esterase Ur 1+ LEU/UL (Negative); Need Manual Microscopic Reviewed; Nitrate Urine Negative (Negative); Non Pathogenic Casts 0-2; Protein Urine Negative (Negative); RBC Urine 0-2 /hpf (0-2); Squamous Epithelial Cell Urine Moderate /hpf (Few); Urobilinogen Urine 0.2 mg/dL (<2.0); pH Urine 6.5 (5.0-9.0)
[2023-02-21 12:13] LABS: Specific Grav Ur 1.055 (1.001-1.035)
[2023-02-21 12:14] LABS: Add Urine Microscopic? YES
[2023-02-21] MEDS: MORPHINE SULFATE (*CRX) 4 MG/ML INJ IV PUSH ×3 (12:21→20:38)
--- NOTE | 2023-02-21 12:22 | PC.NURSE ---
report called to dante
--- NOTE | 2023-02-21 12:44 | ADMGEN ---
This patient, Lacie Gaitan, was admitted to Medical Room 243-. Patient/family oriented to hospital policies and general routines including ID bracelet, bed and alarms, visiting hours, pain management, procedures, bathroom and other care routines, personal items, smoking policy, room service/diet, and visiting hours. Information on how to activate the Rapid Response Team has been discussed. Patient/Family are encouraged to report perceived risks to care and to ask questions if they do not understand what they are told or what they should do.
[2023-02-21] MEDS: LACTATED RINGERS 1,000 ML 125 ML IV CONT (13:08)
--- NOTE | 2023-02-21 15:35 | PM.IMHP ---
H&P: HPI History of Present Illness Date/Time: 02/21/23 15:35 Chief Complaint: Right lower quadrant pain Narrative: The patient is a 53-year-old female well known to my service status post exploratory laparotomy, extensive lysis of adhesions, small-bowel resection, appendectomy on 01/30. The patient did have a prolonged postoperative ileus, however had been doing well at home over the last few weeks. Patient reports over the last 2 days she has developed severe right lower quadrant abdominal pain. The patient reports the right lower quadrant incision has become very red and tender. Workup in the emergency department, including imaging, is significant for right lower quadrant abdominal wall abscess. Review of Systems Review of Systems: All systems reviewed & are unremarkable except as noted in HPI and below PMFSH Past Medical History Medical History History of small bowel obstruction Hypercholesterolemia Surgical History Surgical History H/O abdominal surgery she had exploratory laparotomy. She also had a benign abdominal mass removed. She also had repair of her hepatic artery after her gallbladder was removed. H/O: hysterectomy History of section, classical History of cholecystectomy History of removal of ovarian cyst S/P appendectomy Laparoscopic converted to open appendectomy, extensive lysis of adhesions of approximately 2-1/2 hours, small-bowel resection 01/31/[address] Quintana. Family History Family History Other Family history of arthritis Family history of hypercholesterolemia Family history of kidney disease Social History Social History Social History: The patient lives with her and she has 2 children. 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 She does not use any alcohol or illicit drugs. Code status full code Smoking status: Never smoker Alcohol intake: never Substance use: never Substance use type: does not use Lack of Transportation: No Lack of Food: Never True Current Housing: I Have Housing Concerned About Future Housing: No Difficulty Paying Gas/Electric Bills: No Difficulty Paying for Meds: No Currently Unemployed: No Education: Master's Degree or Higher Difficulty w/ Childcare or Family Care: No Spiritual care concerns: No Meds Home Medications and Allergies Home Medications Medication Instructions Recorded Confirmed Type simvastatin 10 mg tablet 10 mg PO HS 01/30/23 02/21/23 History ondansetron 4 mg disintegrating 4 mg PO Q6H PRN nausea and 02/09/23 02/21/23 Rx tablet vomiting #20 tabs tramadol 50 mg tablet 50 mg PO Q6H PRN pain #30 tabs 02/09/23 02/21/23 Rx cholestyramine (with sugar) 4 gram 4 g PO DAILY #348.6 grams 02/10/23 02/21/23 Rx oral powder Allergies Allergy/AdvReac Type Severity Reaction Status Date / Time erythromycin base Allergy Mild Rash Verified 02/21/23 12:48 Sulfa (Sulfonamide Allergy Unknown Unknown Verified 02/21/23 12:48 Antibiotics) sulfanilamide Allergy Unknown Rash Verified 02/21/23 12:48 vancomycin Allergy Unknown Unknown Verified 02/21/23 12:48 Vital Signs Vital Signs - 24 hr 02/21/23 10:09 02/21/23 10:00 02/21/23 12:26 Temperature 37.1 C 36.9 C Pulse Rate 92 88 85 Respiratory Rate 17 18 18 Blood Pressure 127/58 L 125/85 111/56 L Pulse Oximetry 97 95 99 Oxygen Delivery Room Air 02/21/23 11:00 02/21/23 12:45 02/21/23 14:58 Temperature 37.1 C 37.4 C Pulse Rate 94 95 80 Respiratory Rate 18 16 14 Blood Pressure 112/44 L 110/59 L 105/55 L Pulse Oximetry 99 97 99 Oxygen Delivery Exam Const: General: cooperative, no acute distress and uncomfortable HENMT: Head: normal to inspection, nor
[2023-02-21] MEDS: SODIUM CHLORIDE 0.9% IV 1,000 ML 125 ML IV CONT (21:21)
[2023-02-22] VITALS (17 sets, daily range): BP systolic 81–116; BP diastolic 43–81; PULSE 68–96; RESP 14–24; TEMP 36.2–38.4; O2SAT 92–100; BMI 33.6
[2023-02-22] MEDS: PIPERACILLN/TAZ 3.375GM/NS50ML 3.375 GM/50 ML BAG IVPB ×4 (00:19→17:30)
[2023-02-22] MEDS: MORPHINE SULFATE (*CRX) 4 MG/ML INJ IV PUSH ×2 (00:23→05:45)
[2023-02-22 05:42] LABS: Basophils Absolute Auto 0.1 K/mm3 (0.0-0.1); Basophils Percent Auto 0.6 % (0.2-1.2); Eosinophils Absolute Auto 0.1 K/mm3 (0-0.3); Hematocrit 25.2 % (37.0-47.0); Hemoglobin 8.1 g/dL (12.0-15.0); Immature Granulocyte Absolute 0.05 K/mm3 (0.00-0.031); Immature Granulocyte Percent A 0.6 % (0-0.5); Lymphocytes Absolute Auto 0.79 K/mm3 (0.9-3.2); Lymphocytes Percent Auto 9.5 % (18.3-44.2); Mean Corpuscular HGB Conc 32.1 g/dl (32-36); Mean Corpuscular Hemoglobin 28.7 pg (26-34); Mean Corpuscular Volume 89.4 fl (80-100); Mean Platelet Volume 9.3 fl (7.4-10.4); Monocytes Absolute Auto 0.7 K/mm3 (0.1-0.6); Monocytes Percent Auto 8.9 % (2.6-8.5); Neutrophils Absolute Auto 6.6 K/mm3 (1.3-6.7); Neutrophils Percent Auto 79.4 % (45.5-73.1); Platelet Count Result 163 k/mm3 (150-375); Red Blood Count 2.82 M/mm3 (4.2-5.4); Red Cell Distribution Width 12.6 % (11.5-14.5); White Blood Count 8.4 K/mm3 (4.5-10.0)
[2023-02-22 05:56] LABS: Albumin Level 2.7 g/dL (3.5-5.1); Alkaline Phosphatase 329 U/L (38-126); Anion Gap 4 mmol/L (8-16); Aspartate Amino Transferase 421 U/L (14-36); Bilirubin,Total 1.9 mg/dL (0.2-1.3); Blood Urea Nitrogen 7 mg/dL (7-17); Calcium 7.8 mg/dL (8.4-10.2); Carbon Dioxide 31 mmol/L (22-30); Chloride 96 mmol/L (98-107); Estimated CRCL calculation 58 ml/min; Estimated Glomerular Filt Rate 58; Glucose 129 mg/dL (65-110); Potassium 4.3 mmol/L (3.4-5.0); Sodium 131 mmol/L (137-145)
[2023-02-22 05:59] LABS: Alanine Aminotransferase 373 U/L (6-35)
[2023-02-22] MEDS: LACTATED RINGERS 1,000 ML 30 ML IV CONT (07:00)
--- NOTE | 2023-02-22 07:09 | WPDANESEPPF ---
Anes - Initial Pre Proc Eval Procedure: Operation Date: 02/22/23 07:30 Proposed Procedures p Incision And Drainage Right Lower Quadrant Abcess - Monique Quintana MD Date/Time: 02/22/23 07:09 Surgeon: Monique Quintana MD Pre Op Diagnosis: Abdominal Wall Abscess/ Postop Patient Data Age: 53 Gender: F Height: 1.57 m Weight: 83.4 kg Last Vital Signs Temp 37.7 C H 02/22/23 05:02 Pulse 89 02/22/23 05:02 Resp 16 02/22/23 05:02 BP 116/66 02/22/23 05:02 Pulse Ox 93 02/22/23 05:02 O2 Del Method Room Air 02/21/23 20:31 FiO2 21 02/21/23 20:31 Allergies Allergy/AdvReac Type Severity Reaction Status Date / Time erythromycin base Allergy Mild Rash Verified 02/21/23 12:48 Sulfa (Sulfonamide Allergy Unknown Unknown Verified 02/21/23 12:48 Antibiotics) sulfanilamide Allergy Unknown Rash Verified 02/21/23 12:48 vancomycin Allergy Unknown Unknown Verified 02/21/23 12:48 Home Medications Medication Instructions Recorded Confirmed Type simvastatin 10 mg tablet 10 mg PO HS 01/30/23 02/21/23 History ondansetron 4 mg disintegrating 4 mg PO Q6H PRN nausea and 02/09/23 02/21/23 Rx tablet vomiting #20 tabs tramadol 50 mg tablet 50 mg PO Q6H PRN pain #30 tabs 02/09/23 02/21/23 Rx cholestyramine (with sugar) 4 gram 4 g PO DAILY #348.6 grams 02/10/23 02/21/23 Rx oral powder Laboratory Tests 02/21/23 02/21/23 02/22/23 10:26 11:31 05:01 WBC 9.9 K/mm3 8.4 K/mm3 (4.5-10.0) (4.5-10.0) RBC 3.18 L M/mm3 2.82 L M/mm3 (4.2-5.4) (4.2-5.4) Hgb 9.1 L g/dL 8.1 L g/dL (12.0-15.0) (12.0-15.0) Hct 27.4 L % 25.2 L % (37.0-47.0) (37.0-47.0) MCV 86.2 fl 89.4 fl (80-100) (80-100) MCH 28.6 pg 28.7 pg (26-34) (26-34) MCHC 33.2 g/dl 32.1 g/dl (32-36) (32-36) RDW 12.3 % 12.6 % (11.5-14.5) (11.5-14.5) Plt Count 199 k/mm3 163 k/mm3 (150-375) (150-375) MPV 9.0 fl 9.3 fl (7.4-10.4) (7.4-10.4) Immature Gran % (Auto) 0.4 % 0.6 H % (0-0.5) (0-0.5) Neut % (Auto) 82.8 H % 79.4 H % (45.5-73.1) (45.5-73.1) Lymph % (Auto) 7.5 L % 9.5 L % (18.3-44.2) (18.3-44.2) [place] % (Auto) 8.8 H % 8.9 H % (2.6-8.5) (2.6-8.5) Eos % (Auto) 0.3 % 1.0 % (0-4.4) (0-4.4) Baso % (Auto) 0.2 % 0.6 % (0.2-1.2) (0.2-1.2) Lymph # (Auto) 0.74 L K/mm3 0.79 L K/mm3 (0.9-3.2) (0.9-3.2) [place] # (Auto) 0.9 H K/mm3 0.7 H K/mm3 (0.1-0.6) (0.1-0.6) Eos # (Auto) 0.0 K/mm3 0.1 K/mm3 (0-0.3) (0-0.3) Baso # (Auto) 0.0 K/mm3 0.1 K/mm3 (0.0-0.1) (0.0-0.1) Abs Immat Gran (auto) 0.04 H K/mm3 0.05 H K/mm3 (0.00-0.031) (0.00-0.031) Absolute Neuts (auto) 8.2 H K/mm3 6.6 K/mm3 (1.3-6.7) (1.3-6.7) Absolute Nucleated RBC 0.0 K/mm3 0.0 K/mm3 (0.0-0.012) (0.0-0.012) Nucleated RBC % 0.0 % 0.0 % (0.0-0.2) (0.0-0.2) Sodium 129 L mmol/L 131 L mmol/L (137-145) (137-145) Potassium 3.7 mmol/L 4.3 mmol/L (3.4-5.0) (3.4-5.0) Chloride 94 L mmol/L 96 L mmol/L (98-107) (98-107) Carbon Dioxide 26 mmol/L 31 H mmol/L (22-30) (22-30) Anion Gap 9 mmol/L 4 L mmol/L (8-16) (8-16) BUN 9 mg/dL 7 mg/dL (7-17) (7-17) Creatinine 0.80 mg/dL 1.00 mg/dL (0.7-1.0) (0.7-1.0) Estim Creat Clear Calc 70 ml/min 58 ml/min Estimated GFR > 60 58 L (59 - ) (59 - ) Glucose 158 H mg/dL 129 H mg/dL (65-110) (65-110) Calcium 8.1 L mg/dL 7.8 L mg/dL (8.4-10.2) (8.4-10.2) Total Bilirubin 1.7 H mg/dL 1.9 H mg/dL (0.2-1.3) (0.2-1.3) AST 28 U/L 421 H U/L (14-36) (14-36) ALT 31 U/L 373 H U/L (6-35) (6-35) Alkaline Phosphatase 108 U/L 329 H U/L (38-126) (38-126) Total Protein 6.0 L g/dL 5.0 L g/dL (6.3-8.2) (6.3-8.2) Albumin 3.2 L g/dL 2.7 L g/dL (3.5-5.1)
--- NOTE | 2023-02-22 07:17 | WPDHPUPDATE1 ---
History and Physical Update Update Date/Time: 02/22/23 07:17 History and Physical has been reviewed, including an updated exam of the patient. There are NO changes in the patient's condition. Risks, benefits, and alternatives have been discussed and questions answered. Patient agrees to proceed with procedure.
--- NOTE | 2023-02-22 07:49 | W.PM.PROC2 ---
Procedure Note - Detailed Date of Procedure 02/22/23 Pre-op Diagnosis Right lower quadrant abdominal wall abscess Post-op Diagnosis Same Procedure Performed complex incision and drainage right lower quadrant abdominal wall abscess measuring approximately 6 x 4 x 5 cm Surgeon Monique Quintana MD Anesthesia General and Local Indications 53-year-old female status post open appendectomy re-presented to the hospital complaining of severe right lower quadrant abdominal pain. Workup, including imaging significant for right lower quadrant abdominal wall abscess. Findings 6 x 4 x 5 cm right lower quadrant abdominal wall abscess contained within this subcutaneous tissue, no evidence of extension into the muscle or fascia Description of Procedure The patient was taken to the operating room placed the supine position. After adequate induction of general anesthesia, the patient was prepped and draped in the normal sterile fashion. A time-out was done to verify the patient's identity, as well as the procedure being performed. I began by localizing the area in the right lower quadrant around the previous incision. I then made an opening over the most fluctuant area of the incision. Upon getting into the subcutaneous tissue, a large amount of purulent drainage was noted. Given the amount of infection, I opened up the rest of the incision to allow complete drainage. I then used a hemostat to break up further loculations and drained all fluid collections. Exploring the wound, there was noted to be no deep extension into the abdominal cavity itself. At this point, I copiously washed out the cavity which measured approximately 6 x 4 x 5 cm. I then packed the cavity with normal saline soaked Kerlix roll. Sterile dressing was then placed. The patient tolerated the procedure well and was extubated postoperatively. She will be sent to the recovery room in stable condition. Estimated Blood Loss 5 Urine Output 700 Drains No Packing Yes Pathology None sent Complications No immediate complications Condition Stable Disposition PACU [facility] Billing Surgery - Charge Forward: Surgery Billing
[2023-02-22] MEDS: SCOPOLAMINE 1.5 MG PATCH TRANSDERM (08:04)
--- NOTE | 2023-02-22 08:19 | SUR.PHASEI ---
0819: Simple mask removed.
--- NOTE | 2023-02-22 08:42 | SUR.PHASEI ---
Floor RN is busy and will call back for report.
--- NOTE | 2023-02-22 09:12 | PC.NURSE ---
Pt arrived back to the floor from surgery at 0905.
[2023-02-22] MEDS: SODIUM CHLORIDE 0.9% IV 1,000 ML 125 ML IV CONT ×2 (10:48→20:00)
[2023-02-22] MEDS: traMADol HCL (*CRX) 50 MG TABLET PO (12:34)
[2023-02-22] MEDS: SIMVASTATIN 10 MG TABLET PO (21:22)
[2023-02-23] VITALS (7 sets, daily range): BP systolic 97–116; BP diastolic 46–60; PULSE 60–72; RESP 16–18; TEMP 36–36.9; O2SAT 96–100
[2023-02-23] MEDS: PIPERACILLN/TAZ 3.375GM/NS50ML 3.375 GM/50 ML BAG IVPB ×5 (00:07→23:51)
[2023-02-23] MEDS: traMADol HCL (*CRX) 50 MG TABLET PO ×2 (03:03→09:04)
[2023-02-23] MEDS: SODIUM CHLORIDE 0.9% IV 1,000 ML 125 ML IV CONT ×3 (04:39→23:54)
--- NOTE | 2023-02-23 07:33 | WPDANESPN ---
Anes - Prog Note Post-Op Date/Time: 02/23/23 07:33 Cardiovascular status: normal Respiratory status: normal Airway patency: baseline Mental status: baseline Post-Op hydration status: normal Vital Signs: Last Vital Signs Temp 36.6 C 02/23/23 05:34 Pulse 63 02/23/23 05:34 Resp 16 02/23/23 05:34 BP 97/60 L 02/23/23 05:34 Pulse Ox 96 02/23/23 05:34 O2 Del Method Nasal Cannula 02/22/23 09:23 O2 Flow Rate 1 02/22/23 09:23 FiO2 21 02/21/23 20:31 Pain Score (VAS): 3/10 I/O: Intake & Output 02/22/23 02/22/23 02/23/23 15:59 23:59 07:59 Intake Total 1050 1470 1650 Output Total 400 Balance 1050 1070 1650 Laboratory Tests 02/22/23 05:01 02/22/23 05:01 Microbiology 02/21/23 11:31 Unspecified Urine Urine Culture - Final Post-procedural complaints: none Patient Feedback: Patient satisfied with anesthetic care.
--- NOTE | 2023-02-23 12:43 | PM.PNGS ---
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 Status: Acute Assessment and Plan: low output, will back down to clears and ensure, wet to dry drsg BID, follow closely Subjective Subjective Date/Time Seen: 02/23/23 12:43 Interval history: feels good, sarah diet, +bowel fxn, wound care change at bedside Review of Systems Review of Systems: All systems reviewed & are unremarkable except as noted in HPI and below Exam Const: General: cooperative, comfortable and no acute distress Resp: Auscultation: clear to auscultation bilaterally Cardio: Rate: regular rate Rhythm: regular rhythm GI: Inspection: normal to inspection, distended and incision GI Palp: No abdominal tenderness, Yes Soft to palpation, No Firmness to palpation present (GI), No Tenderness to palpation present (GI), No Guarding due to palpation present (GI) and No Rigid due to palpation Other: dressing c mod amount of enteric content Objective Data Vital Signs Vital Signs: Vital Signs - 24 hr 02/22/23 13:35 02/22/23 18:16 02/22/23 21:15 Temperature 36.2 C L 36.7 C 36.5 C Pulse Rate 71 79 68 Respiratory Rate 18 16 14 Blood Pressure 105/50 L 111/49 L 110/60 Pulse Oximetry 99 97 96 Oxygen Delivery 02/23/23 01:27 02/23/23 05:34 02/23/23 08:00 Temperature 36.4 C 36.6 C Pulse Rate 68 63 Respiratory Rate 16 16 Blood Pressure 100/60 97/60 L Pulse Oximetry 97 96 Oxygen Delivery Room Air 02/23/23 10:37 Temperature 36.4 C Pulse Rate 65 Respiratory Rate 16 Blood Pressure 103/60 Pulse Oximetry 96 Oxygen Delivery Intake/Output Intake/Output: Intake & Output 02/20/23 02/21/23 02/22/23 02/23/23 23:59 23:59 23:59 23:59 Intake Total 1570 4020 1830 Output Total 1800 Balance 1570 2220 1830 Meds/Results Medications: Active Medications Generic Name Dose Route Start Last Admin Trade Name Freq PRN Reason Stop Dose Admin Acetaminophen 1,000 mg 02/21/23 20:55 Acetaminophen 500 Mg Tablet PO Q6HR PRN Fever Cholestyramine Resin 4 gm 02/22/23 13:00 02/22/23 12:35 Cholestyramine (W/ Sugar) 4 Gm Powd.Pack PO Not Given DAILY@1300 JOHN Piperacillin/Tazobactam/Dextrose 3.375 gm in 50 mls @ 100 mls/hr 02/21/23 18:00 02/23/23 06:39 Zosyn 3.375 Gm/Ns 50 Ml IVPB Infused Q6H JOHN Infusion Sodium Chloride 1,000 mls @ 125 mls/hr 02/21/23 20:55 02/23/23 04:39 Normal Saline Iv IV CONT 125 mls/hr .Q8H JOHN Administration Morphine Sulfate 4 mg 02/21/23 11:50 02/22/23 05:45 Morphine Sulfate (*Crx) 4 Mg/Ml Inj IV PUSH 4 mg Q2H PRN Administration Pain Rated 7-10 Ondansetron HCl 4 mg 02/21/23 11:50 Ondansetron Inj 4 Mg/2 Ml Vial IV PUSH Q4H PRN Nausea Ondansetron HCl 4 mg 02/22/23 09:01 Ondansetron Hcl Odt 4 Mg Tablet PO Q6H PRN nausea and vomiting Simvastatin 10 mg 02/22/23 21:00 02/22/23 21:22 Simvastatin 10 Mg Tablet PO 10 mg HS JOHN Administration Tramadol HCl 50 mg 02/22/23 09:01 02/23/23 09:04 Tramadol Hcl (*Crx) 50 Mg Tablet PO 50 mg Q6H PRN Administration PAIN 4-6 Radiology Results: ITS Impressions Abdomen/Pelvis CT 02/21/23 11:21 Impression: Probable ill-defined right lower quadrant abdominal wall abscess with extensive local adjacent soft tissue gas in the right lower quadrant anterior subcutaneous soft tissues and the right rectus abdominis muscle, which could reflect extension of abscess/infection into the subcutaneous soft tissues. Extensive infiltrative changes/inflammatory changes in the mesentery, which could reflect postoperative change or nonspecific infection. Several tiny bubbles of pneumoperitoneum are likely postoperative in nature. New hypodensity at the inferior tip of the right hepatic lobe. Developing infectious process (hepatic phlegmon/developing abscess) or hepatic infarcts are considerations.
[2023-02-24 05:10] VITALS: BP 100/62; PULSE 69; RESP 18; TEMP 36.3; O2SAT 99
[2023-02-24 05:32] LABS: Basophils Absolute Auto 0.1 K/mm3 (0.0-0.1); Eosinophils Absolute Auto 0.3 K/mm3 (0-0.3); Hematocrit 27.5 % (37.0-47.0); Hemoglobin 8.4 g/dL (12.0-15.0); Immature Granulocyte Absolute 0.28 K/mm3 (0.00-0.031); Immature Granulocyte Percent A 4.1 % (0-0.5); Lymphocytes Absolute Auto 1.48 K/mm3 (0.9-3.2); Lymphocytes Percent Auto 21.6 % (18.3-44.2); Mean Corpuscular HGB Conc 30.5 g/dl (32-36); Mean Corpuscular Volume 91.7 fl (80-100); Mean Platelet Volume 9.2 fl (7.4-10.4); Monocytes Absolute Auto 0.4 K/mm3 (0.1-0.6); Monocytes Percent Auto 6.1 % (2.6-8.5); Neutrophils Absolute Auto 4.3 K/mm3 (1.3-6.7); Neutrophils Percent Auto 62.2 % (45.5-73.1); Nucleated Red Blood Cells Perc 0.3 % (0.0-0.2); Platelet Count Result 245 k/mm3 (150-375); Red Cell Distribution Width 12.8 % (11.5-14.5); White Blood Count 6.9 K/mm3 (4.5-10.0)
[2023-02-24 05:40] LABS: Alanine Aminotransferase 151 U/L (6-35); Albumin Level 2.9 g/dL (3.5-5.1); Alkaline Phosphatase 225 U/L (38-126); Anion Gap 5 mmol/L (8-16); Aspartate Amino Transferase 31 U/L (14-36); Bilirubin,Total 0.7 mg/dL (0.2-1.3); Blood Urea Nitrogen 9 mg/dL (7-17); Calcium 7.9 mg/dL (8.4-10.2); Carbon Dioxide 26 mmol/L (22-30); Chloride 108 mmol/L (98-107); Estimated CRCL calculation 48 ml/min; Estimated Glomerular Filt Rate 47; Glucose 99 mg/dL (65-110); Potassium 3.8 mmol/L (3.4-5.0); Sodium 139 mmol/L (137-145)
[2023-02-24] MEDS: PIPERACILLN/TAZ 3.375GM/NS50ML 3.375 GM/50 ML BAG IVPB ×2 (06:09→12:02)
[2023-02-24 08:00] VITALS: PULSE 67; RESP 18; O2SAT 98
[2023-02-24 10:00] VITALS: BP 127/75; PULSE 67; RESP 18; TEMP 36.3; O2SAT 98
[2023-02-24 13:45] VITALS: BP 144/69; PULSE 62; RESP 20; TEMP 36.8; O2SAT 97
--- NOTE | 2023-02-24 15:25 | PM.DS ---
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 Status: Acute Assessment and Plan: small low output fistula, minimal output with clear liquid diet, patient instructed to continue to watch output closely and slowly advance diet as tolerated, local wound care with home health (2) Abdominal wall abscess: Code(s): L02.211 - Cutaneous abscess of abdominal wall Status: Acute Assessment and Plan: patient to be discharged home with home health and local wound care, home with 1 week antibiotics DS: Summary Hospital Course Reason for hospitalization: right lower quadrant abdominal wall abscess Hospital Course: The patient is a 53-year-old female well known service from previous open appendectomy with extensive lysis of adhesions. The patient re-presented with right lower quadrant abdominal wall abscess. The patient was admitted to my service and started on IV antibiotics. Upon evaluation, decision was made to bring the patient to the operating room for complex incision and drainage. The following morning the patient was taken the operating room and complex incision and drainage was performed, please see full operative report for details of that procedure. Postoperatively the patient did well and was transferred back to the surgical floor. Overnight, there was noted to be a minimal amount of enteric content on the dressing. The patient was diagnosed with a small enterocutaneous fistula that was very low output. She was subsequently backed down to a clear liquid diet. Over the next day, the output was negligible being on a clear liquid diet. Given these findings, the patient will be discharged home with local wound care and instructions to closely follow output. The patient has been told to slowly advance her diet as tolerated, again watching the output. She will be discharged with p.o. antibiotics. She has had home health care set up for her local wound care. He will follow up with me in 1 week. Status at Discharge Functional status at discharge: independent ambulation Overall status at discharge: patient is progressing back to baseline Time Spent with Patient Time attestation: Total time spent providing and/or coordinating discharge services: Time spent: Less than 30 minutes Exam Const: General: cooperative, comfortable and no acute distress Resp: Auscultation: clear to auscultation bilaterally Cardio: Rate: regular rate Rhythm: regular rhythm GI: Inspection: normal to inspection, non-distended and incision GI Palp: No abdominal tenderness, Yes Soft to palpation, No Tenderness to palpation present (GI), No Guarding due to palpation present (GI) and No Rigid due to palpation Other: RLQ - wound c good granulation tissue, no output note at this time DS: Data Data Completed and Pending Labs on day of discharge: Labs from last 24 hours 02/24/23 05:06 WBC 6.9 RBC 3.00 L Hgb 8.4 L Hct 27.5 L MCV 91.7 MCH 28.0 MCHC 30.5 L RDW 12.8 Plt Count 245 D MPV 9.2 Immature Gran % (Auto) 4.1 H Neut % (Auto) 62.2 Lymph % (Auto) 21.6 [place] % (Auto) 6.1 Eos % (Auto) 5.0 H Baso % (Auto) 1.0 Lymph # (Auto) 1.48 [place] # (Auto) 0.4 Eos # (Auto) 0.3 Baso # (Auto) 0.1 Abs Immat Gran (auto) 0.28 H Absolute Neuts (auto) 4.3 Absolute Nucleated RBC 0.0 Nucleated RBC % 0.3 H Sodium 139 Potassium 3.8 Chloride 108 H Carbon Dioxide 26 Anion Gap 5 L BUN 9 Creatinine 1.20 H Estim Creat Clear Calc 48 Estimated GFR 47 L Glucose 99 Calcium 7.9 L Total Bilirubin 0.7 AST 31 ALT 151 H Alkaline Phosphatase 225 H Total Protein 5.0 L Albumin 2.9 L Discharge Plan Discharge Attending physician on discharge: Monique Quintana Discharging Clinician: Monique Quintana Antic
== END 2023-02-24 16:30 | disposition home health service (06) | DRG 863 ==
LOC: ANHED 11:49 → ANH2MED 12:22
PROVIDERS: Surgery; Admitting Provider Surgery; Emergency Provider General Practice; PCP Internal Medicine; Visit Provider Surgery
PROC: 0J980ZZ Drainage of Abdomen Subcutaneous Tissue and Fascia, Open Approach (ICD-10-PCS; principal; 2023-02-22 07:30)
DX: T81.41XA Infection following a procedure, superficial incisional surgical site, initial encounter (principal); L02.211 Cutaneous abscess of abdominal wall; T81.83XA Persistent postprocedural fistula, initial encounter; K63.2 Fistula of intestine; K91.89 Other postprocedural complications and disorders of digestive system; K56.7 Ileus, unspecified; E78.00 Pure hypercholesterolemia, unspecified; Z90.49 Acquired absence of other specified parts of digestive tract; Z90.710 Acquired absence of both cervix and uterus; E66.9 Obesity, unspecified; Z68.33 Body mass index [BMI] 33.0-33.9, adult
CPT/HCPCS: 36415; 74177; 80053; 81001; 83690; 85025; 87086; 87088; 96374; 96375; 99285; A9270; J1100; J1170; J2250; J2270; J2405; J2543; J2704; J3010; J7030; J7120; Q9967

== ENCOUNTER 2023-12-28 15:04 | Outpatient (CLI) | payer BC, SELFPAY ==
--- NOTE | ~2023-12-28 | MM_ITS ---
EXAMINATION: MM screening zuhair BI w julio HISTORY: Screening mammogram TECHNIQUE: Craniocaudal and mediolateral oblique 3-D tomosynthesis images were obtained and synthetic 2-D images were generated. CAD analysis was submitted and interpreted. COMPARISON: 06/08/2020 diagnostic left mammogram and Limited left breast ultrasound 06/01/2020 bilateral screening mammogram BREAST PARENCHYMAL COMPOSITION: There are scattered areas of fibroglandular density. FINDINGS: There is no evidence of suspicious mass, calcification, or architectural distortion to sugg est malignancy in either breast. There has been no suspicious interval change. IMPRESSION: 1. No mammographic evidence of malignancy. 2. Recommend routine screening mammography in one year. BI-RADS Category 1: Negative Reviewed, dictated and finalized at location [facility].
== END 2023-12-28 15:05 | disposition home or self-care (01) ==
PROVIDERS: PCP Internal Medicine; Visit Provider Obstetrics & Gynecology
DX: Z12.31 Encounter for screening mammogram for malignant neoplasm of breast (principal)
CPT/HCPCS: 77063; 77067

== ENCOUNTER 2025-01-09 15:09 | Outpatient (CLI) | payer BC, SELFPAY ==
--- NOTE | ~2025-01-09 | MM_ITS ---
EXAMINATION: MM screening zuhair BI w julio HISTORY: Screening TECHNIQUE: Craniocaudal and mediolateral oblique 3-D tomosynthesis images were obtained and synthetic 2-D images were generated. CAD analysis was submitted and interpreted. COMPARISON: Comparison to multiple prior studies sequentially, with oldest reviewed study dated 09/2016. BREAST PARENCHYMAL COMPOSITION: Not dense: There are scattered areas of fibroglandular density. FINDINGS: There is no evidence of suspicious mass, calcification, or architectural distortion to sugg est malignancy in either breast. There has been no suspicious interval change. IMPRESSION: 1. No mammographic evidence of malignancy. 2. Recommend routine screening mammography in one year. BI-RADS Category 1: Negative Reviewed, dictated and finalized at location A.
--- OUTSIDE RECORDS SUMMARY | 2025-01-09 15:28 | XMS_ITS | Referral Summary ---
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 [address] [place] [address] Pancreatic cyst Discharge Disposition: Discharge to home or self care from Last 3 Months Allergies Active Allergy Reactions Criticality Noted Date Comments Sulfa (Sulfonamide Antibiotics) Other (See comments),Rash Medium Reaction: Vancomycin Hives,Itching,Rash Medium Medications albuterol HFA (PROVENTIL HFA,VENTOLIN HFA,PROAIR HFA) 90 mcg/actuation inhaler INHALE 2 PUFFS BY MOUTH 4 TIMES DAILY 1 Active fluticasone propionate (ALLERGY RELIEF, FLUTICASONE, NASL) 4 Active simvastatin (ZOCOR) 10 mg tablet Take 10 mg by mouth daily 1 Active loratadine (CLARITIN) 10 mg tablet Take 10 mg by mouth daily as needed 4 Active pseudoephedrine (SUDAFED) 30 mg tabletIndicatio ns:Nasal Congestion Take 30 mg by mouth every 4 (four) hours as needed for congestion Active ALPRAZolam (XANAX) 0.5 mg tablet Take 1 tablet (0.5 mg total) by mouth once for 1 dose Take tablet 30 minutes-1 hour prior to imaging 1 tablet 3 Active Active Problems Problem Noted Date Diagnosed Date Hypoglycemia 05/13/2022 Pancreatic lesion 10/08/2021 Overview (10/08/2021): Added automatically from request for surgery [id number] Edema 11/26/2020 Irritable bowel syndrome 11/26/2020 Hypercholesterolemia 11/26/2020 Generalized osteoarthritis 11/26/2020 Calculus of bile duct with obstruction Asthma 11/26/2020 Abnormal mammogram 11/26/2020 Breast mass 11/26/2020 Breast pain 11/26/2020 Resolved Problems Problem Noted Date Diagnosed Date Resolved Date Chronic interstitial cystitis 11/26/2020 02/24/2022 Anxiety disorder 06/27/2017 02/24/2022 Social History Tobacco Use Types Packs/Day Years Used Date Smoking Tobacco: Never Smokeless Tobacco: Never Tobacco Cessation:Counseling Given: Not Answered AUDIT-C Answer Date Recorded Q1: How often do you have a drink containing alc ohol? 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 [employer] Gender Identity Female 11/19/2020 7:15 PM CDT Sexual Orientation Straight 11/19/2020 7: 15 PM CDT Last Filed Vital Signs Vital Sign Reading Time Taken Comments Blood Pressure 120/78 09/16/2022 3:33 PM HYDROSTATIC TUBING TESTER Pulse 85 09/16/2022 3:33 PM HYDROSTATIC TUBING TESTER Temperature 36.2 C (97.1 F) 10/18/2021 11:33 AM HYDROSTATIC TUBING TESTER Respiratory Rate 17 10/18/2021 12:58 PM HYDROSTATIC TUBING TESTER Oxygen Saturation 99% 10/18/2021 12:58 PM HYDROSTATIC TUBING TESTER Inhaled Oxygen Concentration - - Weight 85.3 kg (188 lb 0.8 oz) 11/12/2022 9:32 A M CDT Height 157.5 cm (5' 2 ) 11/12/2022 9:32 AM CDT Body Mass Index 34.4 11/12/2022 9:32 AM CDT Plan of Treatment Not on file Procedures Procedure Name Priority Date/Time Associated Diagnosis Comments MRI ABDOMEN PANCREAS W WO CONTRAST Schedule Routine, Read Routine (OP Routine) 11/21/2024 4:43 PM CDT Pancreatic cyst DIAGNOSTIC MAMMOGRAM BILATERAL W WILI Schedule Routine, Read Routine (OP Routine) 06/08/2022 3:28 PM CDT Breast pain from Last 3 Months or Most Recently Relevant to Health Maintenance Results * MRI Abdomen Pancreas W WO Contrast (11/21/2024 4:43 PM CDT) Anatomical Region Laterality Modality Body N/A Magnetic Resonan ce 11/26/2024 3:46 PM CDT Narrative 11/26/2024 3:51 PM CDT EXAM DESCRIPTION: MRI ABDOMEN PANCREAS W WO CONTRAST REASON FOR STUDY: pancreatic cyst Annual pancreatic cyst follow-up; no patient complaints at this time TECHNIQUE: MRI of the abdomen performed without and with intravenous contrast according to the pancreas protocol. All images stored on PACS. 3D MIP images rendered on scanning unit and reviewed at time of interpretation. CONTRAST TYPE/DOSE: 17mL of GADOTERATE MEGLUMINE 0.5 MMOL/ML INTRAVENOUS SOLUTION (SO) injected via intravenous COMPARISON: 11/15/2023 FINDINGS: LOWER CHEST: The heart size is stable. There is no definite evidence of pericardial effusion. The visualized lung bases are grossly clear. LIVER: The liver is grossly stable in size and contour. There is no definite evidence of focal hepatic lesion. The hepatic and portal veins are grossly patent. GALLBLADDER: The gallbladder is surgically absent. BILE DUCTS: There is no definite evidence of intrahepatic or extrahepatic biliary ductal dilatation. The common bile duct measures 0.4 cm in diameter. There is no definite evidence of filling defect within the common bile duct to suggest choledocholithiasis. SPLEEN: The spleen is grossly stable in size and unremarkable. PANCREAS: The pancreatic duct is grossly stable in course and caliber measuring up 2 0.2 cm in the pancreatic head. There is no definite evidence of peripancreatic inflammatory changes or peripancreatic fluid collection. There is redemonstration of the mildly lobulated septated cystic lesion in the pancreatic tail measuring 0.9 by 0.6 cm, which previously measured up to 0.9 cm (axial T2 image 17). There is no definite evidence of abnormal enhancement or mural nodularity within this cystic lesion, and therefore this lesion likely represents a side branch IPMN. ADRENALS: Normal. KIDNEYS/URINARY TRACT: The bilateral kidneys enhance symmetrically. There is no definite evidence of a focal renal lesion. There is no definite evidence of hydronephrosis or hydroureter. GI: The visualized bowel appears grossly unremarkable. There is no definite evidence of free fluid in the abdomen. There is no definite MRI evidence of abdominal lymphadenopathy. MUSCULOSKELETAL: There is a minimal levoscoliotic curvature of the spine with mild degenerative changes. OTHER: No other abnormality. IMPRESSION: Grossly stable mildly lobulated septated cystic lesion in the pancreatic tail measuring up to 0.9 cm, which likely represents a side branch IPMN. Follow-up MRI/MRCP with pancreatic protocol in 1 year is recommended to assess for stability as clinically indicated. THIS IS AN ELECTRONICALLY VERIFIED FINAL REPORT 11/26/2024 3:51 PM - Electronically signed by Giuliana Navarrete D.O. PS: PS Report ID: [id number] Reading Location: [place] [address] Procedure Note Giuliana Navarrete DO - 11/26/2024 EXAM DESCRIPTION: MRI ABDOMEN PANCREAS W WO CONTRAST REASON FOR STUDY: pancreatic cyst Annual pancreatic cyst follow-up; no patient complaints at this time TECHNIQUE: MRI of the abdomen performed without and with intravenous contrast according to the pancreas protocol. All images stored on PACS. 3D MIP images rendered on scanning unit and reviewed at time of interpretation. CONTRAST TYPE/DOSE: 17mL of GADOTERATE MEGLUMINE 0.5 MMOL/ML INTRAVENOUS SOLUTION (SO) injected via intravenous COMPARISON: 11/15/2023 FINDINGS: LOWER CHEST: The heart size is stable. There is no definite evidence of pericardial effusion. The visualized lung bases are grossly clear. LIVER: The liver is grossly stable in size and contour. There is no definite evidence of focal hepatic lesion. The hepatic and portal veinsare grossly patent. GALLBLADDER: The gallbladder is surgically absent. BILE DUCTS: There is no definite evidence of intrahepatic orextrahepatic biliary ductal dilatation. The common bile duct measures 0.4 cm indiameter. There is no definite evidence of filling defect within the common bileduct to suggest choledocholithiasis. SPLEEN: The spleen is grossly stable in size and unremarkable. PANCREAS: The pancreatic duct is grossly stable in course and caliber measuring up 2 0.2 cm in the pancreatic head. There is no definiteevidence of peripancreatic inflammatory changes or peripancreatic fluidcollection. There is redemonstration of the mildly lobulated septated cystic lesion inthe pancreatic tail measuring 0.9 by 0.6 cm, which previously measured up to0.9 cm (axial T2 image 17). There is no definite evidence of abnormalenhancement or mural nodularity within this cystic lesion, and therefore this lesion likely represents a side branch IPMN. ADRENALS: Normal. KIDNEYS/URINARY TRACT: The bilateral kidneys enhance symmetrically.There is no definite evidence of a focal renal lesion. There is no definite evidence of hydronephrosis or hydroureter. GI: The visualized bowel appears grossly unremarkable. There is nodefinite evidence of free fluid in the abdomen. There is no definite MRI evidenceof abdominal lymphadenopathy. MUSCULOSKELETAL: There is a minimal levoscoliotic curvature of the spine with mild degenerative changes. OTHER: No other abnormality. IMPRESSION: Grossly stable mildly lobulated septated cystic lesion in the pancreatictail measuring up to 0.9 cm, which likely represents a side branch IPMN.Follow-up MRI/MRCP with pancreatic protocol in 1 year is recommended to assess for stability as clinically indicated. THIS IS AN ELECTRONICALLY VERIFIED FINAL REPORT 11/26/2024 3:51 PM - Electronically signed by Giuliana Navarrete D.O. PS: PS Report ID: [id number] Reading Location: [place] [address] Cloe Hernandez MD IM MRI PROCEDURES Final R esult * Diagnostic Mammogram Bilateral W Wili (06/08/2022 3:28 PM CDT) Anatomical Region Laterality Modality Breast Bilateral Mammography 06/08/2022 3:35 PM CDT Impressions 06/08/2022 3:39 PM CDT Stable 4 mm oval mass in the upper outer LEFT breast that corresponded to a simple cyst on prior sonogram. Given its stability over 2 years, this mass is now deemed benign. No new suspicious abnormality in EITHER breast. OVERALL FINAL ASSESSMENT: BI-RADS Category 2: Benign. RECOMMENDATION: Annual screening mammography is recommended. Dictated by: Jesse Hill MD The radiology attending physician has personally reviewed this study, and had reviewed and/or edited this written report and agrees with it. Electronically signed by: Linnea Rowley M.D. Narrative 06/08/2022 3:39 PM CDT EXAMINATION: BILATERAL DIGITAL DIAGNOSTIC MAMMOGRAM INCLUDING CAD AND BILATERAL DIGITAL BREAST TOMOSYNTHESIS HISTORY: 52-year-old female presenting for follow-up of a LEFT breast BI-RADS Category 3 oval mass. COMPARISON: LEFT breast diagnostic mammogram and sonogram dated 06/01/2021 and 11/24/2020, screening mammogram 06/01/2020, and LEFT breast diagnostic mammogram 06/08/2020 TECHNIQUE: Full field digital mammographic views of BOTH breasts were performed, including computer aided detection (CAD) and BILATERAL digital breast tomosynthesis (DBT). BREAST PARENCHYMAL COMPOSITION: There are scattered areas of fibroglandular density. MAMMOGRAM FINDINGS: Again seen are multiple bilateral oval masses in the breasts BILATERALLY. There is a stable to decreased 4 mm equal density oval mass in the upper outer LEFT breast at the 3 o'clock position 6 cm from the nipple, which on prior sonographic evaluation corresponded to a simple cyst. No grouped microcalcifications or architectural distortion in EITHER breast. No new suspicious abnormality identified in EITHER breast. Procedure Note Linnea Rowley MD - 06/08/2022 EXAMINATION: BILATERAL DIGITAL DIAGNOSTIC MAMMOGRAM INCLUDING CAD AND BILATERAL DIGITAL BREAST TOMOSYNTHESIS HISTORY: 52-year-old female presenting for follow-up of a LEFT breast BI-RADS Category 3 oval mass. COMPARISON: LEFT breast diagnostic mammogram and sonogram dated 06/01/2021 and 11/24/2020, screening mammogram 06/01/2020, and LEFT breast diagnostic mammogram 06/08/2020 TECHNIQUE: Full field digital mammographic views of BOTH breasts were performed, including computer aided detection (CAD) and BILATERAL digital breast tomosynthesis (DBT). BREAST PARENCHYMAL COMPOSITION: There are scattered areas of fibroglandular density. MAMMOGRAM FINDINGS: Again seen are multiple bilateral oval masses in the breasts BILATERALLY. There is a stable to decreased 4 mm equal density oval mass in the upper outer LEFT breast at the 3 o'clock position 6 cm from the nipple, which on prior sonographic evaluation corresponded to a simple cyst. No grouped microcalcifications or architectural distortion in EITHER breast. No new suspicious abnormality identified in EITHER breast. IMPRESSION: Stable 4 mm oval mass in the upper outer LEFT breast that corresponded to a simple cyst on prior sonogram. Given its stability over 2 years, this mass is now deemed benign. No new suspicious abnormality in EITHER breast. OVERALL FINAL ASSESSMENT: BI-RADS Category 2: Benign. RECOMMENDATION: Annual screening mammography is recommended. Dictated by: Jesse Hill MD The radiology attending physician has personally reviewed this study, and had reviewed and/or edited this written report and agrees with it. Electronically signed by: Linnea Rowley M.D. Chely Lujan NP IMG MAMMO PROCEDURES Fin al Result from Last 3 Months or Most Recently Relevant to Health Maintenance Insurance [employer] [facility] [employer] [place] CHOICE [place] [employer] [place] Advance Directives For more information, please contact: [phone] * Full Code (Latest Code Status on File) Date Activated Date Inactivated Comments 10/18/2021 11:31 AM 10/18/2021 5:22 PM Care Teams Lumber Carrier Relationship Specialty Start Date End Date Chan Valdivia MD [address] [facility] [address] [facility] [address] [place] [address] PCP - General Internal Medicine 10/26/20 Chely Lujan NP [address] [facility] [address] [place] [address] Nurse Practitioner Nurse Practitioner 06/03/21
--- OUTSIDE RECORDS SUMMARY | 2025-01-09 15:28 | XMS_ITS | Data Portability ---
Author Organization [facility], Main Office Address [address] [place] [address] Assessment No assessment recorded. Plan of Treatment Reminders Order Date Submit Date Provider Last Modified By Organization Details Last Modified Time Details Appointments None recorded . Lab lipid panel, serum 024 06/06/20 [facility], [address], [address], [place], [address], 4 04:31:46 CMP, serum or plasma 06/06/20 [facility], [address], [address], [place], [address], 4 04:31:48 CBC w/ auto diff 06/06/20 [facility], [address], [address], [place], [address], 4 04:31:49 TSH, serum or plasma 024 06/06/20 [facility], [address], [address], [place], [address], 4 04:31:52 T4, free, serum 024 06/06/20 [facility], [address], [address], [place], [address], 4 04:31:51 lipid panel, serum 023 06/02/20 23 [email or web address] [facility], [address], [address], [place], [address], 3 17:31:14 lipid panel, serum 023 11/09/19 [email or web address] [facility], [address], [address], [place], [address], 3 17:27:51 CMP, serum or plasma 023 11/09/19 [facility], [address], [place], [address], 3 17:27:51 CBC w/ auto diff 023 11/09/19 [email or web address] [facility], [address], [address], [place], [address], 3 17:27:52 Referral None recorded . Procedures None recorded . Surgeries None recorded . Imaging None recorded . Medication Orders None recorded . Patient TargetsNo targets recorded. Patient Instructions Encounter Date Encounter Id Patient Instructions Last Modified By Organization Details Last Modified Time 11/08/2022 [id number] Follow-up hyperlipidemia-ast hma-intraductal papillary neoplasm of the pancreas all stable. Check blood work in the form of CBC, CMP and lipid panel. Continue on current Rx otherwise up-to-date on other immunizations and screening studies. Follow-up in six months [email or web address] Not available 11/08/2022 16:29:32 06/02/2023 [id number] risk assessment* [email or web address] Not availabl e 06/02/2023 16:15:57 INFLUENZA VACCIN E TD/TDAP Recommended today, patient declined Ordered P atient will get at local pharmacy/health department PNEUMONIA VACCINE Ordered Recommende d today, patient declined Patient will get at local pharmacy/health department Recomme nded at age 65 SHINGLES Ordered Recommende d today, patient declined Patient will get at local pharmacy/health department MAMMOGRAM: Last Mammogram _ No screening necessary patient is up to date DEXA SCAN CERVICAL SCREENING/PELVIC EXAMINATION Recommended today, but patient declined Ordered N o screening necessary patient is up to date COLORECTAL SCREENING: Last Colonoscopy No screening necessary patient is up to date DEPRESSION SCREENING Negative BMI Overweight continue your current weight loss efforts try to lose 5% of your body weight try to lose 10% of your body weight NUTRITION PHYSICAL ACTIVITY Need more exercise/physical activity VISION ALCOHOL USE No alcohol use TOBACCO USE non smoker LUNG CANCER SCREENING Non Smoker-not indicated SEXUALLY ACTIVE HEPATITIS C SCREENING Not indicated GLUCOSE SCREENING LIPID SCREENING [email or web address] Not available 06/02/2023 16:00:17 Wellness evaluation risk assessment. Stable. 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 Clinically stable. Had blood work performed recently at the hospital with appendicitis. Will check a lipid panel otherwise does not need any further testing at this time. Will continue on current Rx recheck back in six months Portions of the record may have been created with voice recognition software. Occasional wrong-word or [id number] substitutions may have occurred due to the inherent limitations of voice recognition software. Read the chart carefully and recognize, using context, where substitutions have occurred. Next Appt: 6 Months Approximate Date: 11/29/2023 Not available 06/02/2023 16:15:39 06/06/2024 [id number] risk assessment* [email or web address] Not availabl e 06/06/2024 16:32:49 INFLUENZA VACCIN E TD/TDAP Recommended today, patient declined Ordered P atient will get at local pharmacy/health department PNEUMONIA VACCINE Ordered Recommende d today, patient declined Patient will get at local pharmacy/health department Recomme nded at age 65 SHINGLES Ordered Recommende d today, patient declined Patient will get at local pharmacy/health department MAMMOGRAM: Last Mammogram _ No screening necessary patient is up to date DEXA SCAN No screening necessary patient is up to date CERVICAL SCREENING/PELVIC EXAMINATION Recommended today, but patient declined Ordered N o screening necessary patient is up to date COLORECTAL SCREENING: Last Colonoscopy DEPRESSION SCREENING Negative BMI Overweight continue your current weight loss efforts try to lose 5% of your body weight try to lose 10% of your body weight NUTRITION PHYSICAL ACTIVITY Need more exercise/physical activity VISION ALCOHOL USE No alcohol use TOBACCO USE non smoker LUNG CANCER SCREENING Non Smoker-not indicated SEXUALLY ACTIVE HEPATITIS C SCREENING Not indicated GLUCOSE SCREENING LIPID SCREENING [email or web address] Not available 06/06/2024 16:26:31 Follow-up adult health evaluation risk assessment stable. Currently doing well. Does have history of hyperlipidemia and recent history of the asthma complicated by recent COVID. He is having to use her inhaler much more frequently. Will check blood work consisting of CBC, CMP, lipid and thyroid. Will give a trial of some AirSupra two puffs q.i.d.. Follow-up in Follow Up: 1 Year Approximate Date: 06/06/2025 Portions of the record may have been created with voice recognition software. Occasional wrong-word or fymir-q-ibas substitutions may have occurred due to the inherent limitations of voice recognition software. Read the chart carefully and recognize, using context, where substitutions have occurred. [email or web address] Not available 06/06/2024 16:32:35 Reason for Referral None Reported. Results Created Date Observation Date Name Description Value Unit Range Abnormal Flag Note LastModifiedBy Organization Detail LastModifiedTime 11/04/1911/04/2021 TSH TSH 1.15 mIU/L normal Refer ence Range > or = 20 Years 0.40- 4.50 Pregn petty Range s First trime ster 0.26- 2.66 Secon d trime ster 0.55- 2.73 Third trime ster 0.43- 2.91 Not Available [address], [address], 11/04/2021 03:41:36 11/04/19 22 11/04/2021 T4, FREE T4, free 1.0 NG/dL 0.8-1. 8 normal Not Available [facility] [address], [address], 11/04/2021 03:41:35 11/04/19 22 11/04/2021 CBC (INCL UDES DIFF/ PLT) white blood cell count 5.2 thous and/u L 3.8-10 .8 normal Not Available [facility] [address], [address], 11/04/2021 03:41:34 11/04/19 22 11/04/2021 CBC (INCL UDES DIFF/ PLT) red blood cell count 4.64 lisa on/uL 3.80-5 .10 normal Not Available [address], [address], 11/04/2021 03:41:34 11/04/19 22 11/04/2021 CBC (INCL UDES DIFF/ PLT) hemoglobin 14.4 g/dL 11.7-1 5.5 normal Not Available [address], [address], 11/04/2021 03:41:34 11/04/19 22 11/04/2021 CBC (INCL UDES DIFF/ PLT) MCHC 34.5 g/dL 32.0-3 6.0 normal Not Available [address], [address], 11/04/2021 03:41:34 11/04/19 22 11/04/2021 CBC (INCL UDES DIFF/ PLT) hematocrit 41.7 % 35.0-4 5.0 normal Not Available [address], [address], 11/04/2021 03:41:34 11/04/19 22 11/04/2021 CBC (INCL UDES DIFF/ PLT) MCV 89.9 fL 80.0-1 00.0 normal Not Available [address], [address], 11/04/2021 03:41:34 11/04/19 22 11/04/2021 CBC (INCL UDES DIFF/ PLT) MCH 31.0 pg 27.0-3 3.0 normal Not Available [address], [address], 11/04/2021 03:41:34 11/04/19 22 11/04/2021 CBC (INCL UDES DIFF/ PLT) RDW 13.2 % 11.0-1 5.0 normal Not Available [address] [place], [address], 11/04/2021 03:41:34 11/04/19 22 11/04/2021 CBC (INCL UDES DIFF/ PLT) platelet count 133 thous and/u L 140-40 0 low Not Available [address], [address], 11/04/2021 03:41:34 11/04/19 22 11/04/2021 CBC (INCL UDES DIFF/ PLT) MPV 9.4 fL 7.5-12 .5 normal Not Available [address], [address], 11/04/2021 03:41:34 11/04/19 22 11/04/2021 CBC (INCL UDES DIFF/ PLT) absolute neutrophils 3224 cells /uL 1500-7 800 normal Not Available [address], [address], 11/04/2021 03:41:34 11/04/19 22 11/04/2021 CBC (INCL UDES DIFF/ PLT) absolute lymphocytes 1472 cells /uL 850-39 00 normal Not Available [address], [address], 11/04/2021 03:41:34 11/04/19 22 11/04/2021 CBC (INCL UDES DIFF/ PLT) absolute monocytes 333 cells /uL 200-95 0 normal Not Available [address], [address], 11/04/2021 03:41:34 11/04/19 22 11/04/2021 CBC (INCL UDES DIFF/ PLT) absolute eosinophils 130 cells /uL 15-500 normal Not Available [address], [address], 11/04/2021 03:41:34 11/04/19 22 11/04/2021 CBC (INCL UDES DIFF/ PLT) absolute basophils 42 cells /uL 0-200 normal Not Available [address], [address], 11/04/2021 03:41:34 11/04/19 22 11/04/2021 CBC (INCL UDES DIFF/ PLT) neutrophils 62 % normal Not Available [address], [address], 11/04/2021 03:41:34 11/04/19 22 11/04/2021 CBC (INCL UDES DIFF/ PLT) lymphocytes 28.3 % normal Not Available [facility] [address], [address], 11/04/2021 03:41:34 11/04/19 22 11/04/2021 CBC (INCL UDES DIFF/ PLT) monocytes 6.4 % normal Not Available [address], [address], 11/04/2021 03:41:34 11/04/19 22 11/04/2021 CBC (INCL UDES DIFF/ PLT) eosinophils 2.5 % normal Not Available [address], [address], 11/04/2021 03:41:34 11/04/19 22 11/04/2021 CBC (INCL UDES DIFF/ PLT) basophils 0.8 % normal Not Available [address], [address], 11/04/2021 03:41:34 11/04/19 22 11/04/2021 COMPR EHENS KARINE METAB OLIC PANEL glucose 113 mg/dL 65-99 high Fasti ng refer ence inter julius For someo ne witho ut known diabe edie, a gluco se value betwe en 100 and 125 mg/dL is consi stent with predi abete s and shoul d be confi rmed with a follo w-up test. Not Available [facility] [address] [place], [address], 11/04/2021 03:41:34 11/04/19 22 11/04/2021 COMPR EHENS KARINE METAB OLIC PANEL urea nitrogen (BUN) 12 mg/dL 7-25 normal Not Available [address], [address], 11/04/2021 03:41:34 11/04/19 22 11/04/2021 COMPR EHENS KARINE METAB OLIC PANEL creatinine 1.16 mg/dL 0.50-1 .05 high For patie nts >49 years of age, the refer ence limit for Creat inine is appro ximat maryellen 13% highe r for peopl e ident ified as Afric an-Am michael n. Not Available [address], [address], 11/04/2021 03:41:34 11/04/19 22 11/04/2021 COMPR EHENS KARINE METAB OLIC PANEL eGFR non-afr. azerbaijani 54 mL/mi n/1.7 3m2 > or = 60 low Not Available [address], [address], 11/04/2021 03:41:34 11/04/19 22 11/04/2021 COMPR EHENS KARINE METAB OLIC PANEL eGFR 63 mL/mi n/1.7 3m2 > or = 60 normal Not Available [address], [address], 11/04/2021 03:41:34 11/04/19 22 11/04/2021 COMPR EHENS KARINE METAB OLIC PANEL BUN/creatini ne ratio 10 (calc ) 6-22 normal Not Available [address], [address], 11/04/2021 03:41:34 11/04/19 22 11/04/2021 COMPR EHENS KARINE METAB OLIC PANEL sodium 141 mmol/ L 135-14 6 normal Not Available [address], [address], 11/04/2021 03:41:34 11/04/19 22 11/04/2021 COMPR EHENS KARINE METAB OLIC PANEL potassium 4.2 mmol/ L 3.5-5. 3 normal Not Available [address], [address], 11/04/2021 03:41:34 11/04/19 22 11/04/2021 COMPR EHENS KARINE METAB OLIC PANEL chloride 110 mmol/ L 98-110 normal Not Available [address], [address], 11/04/2021 03:41:34 11/04/19 22 11/04/2021 COMPR EHENS KARINE METAB OLIC PANEL carbon dioxide 24 mmol/ L 20-32 normal Not Available [address], [address], 11/04/2021 03:41:34 11/04/19 22 11/04/2021 COMPR EHENS KARINE METAB OLIC PANEL calcium 9.0 mg/dL 8.6-10 .4 normal Not Available [address], [address], 11/04/2021 03:41:34 11/04/19 22 11/04/2021 COMPR EHENS KARINE METAB OLIC PANEL protein, total 5.8 g/dL 6.1-8. 1 low Not Available [address], [address], 11/04/2021 03:41:34 11/04/19 22 11/04/2021 COMPR EHENS KARINE METAB OLIC PANEL albumin 4.1 g/dL 3.6-5. 1 normal Not Available [address], [address], 11/04/2021 03:41:34 11/04/19 22 11/04/2021 COMPR EHENS KARINE METAB OLIC PANEL globulin 1.7 g/dL_ (calc ) 1.9-3. 7 low Not Available [address], [address], 11/04/2021 03:41:34 11/04/19 22 11/04/2021 COMPR EHENS KARINE METAB OLIC PANEL albumin/glob ulin ratio 2.4 (calc ) 1.0-2. 5 normal Not Available [address], [address], 11/04/2021 03:41:34 11/04/19 22 11/04/2021 COMPR EHENS KARINE METAB OLIC PANEL bilirubin, total 1.0 mg/dL 0.2-1. 2 normal Not Available [address], [address], 11/04/2021 03:41:34 11/04/19 22 11/04/2021 COMPR EHENS KARINE METAB OLIC PANEL alkaline phosphatase 91 U/L 37-153 normal Not Available [address], [address], 11/04/2021 03:41:34 11/04/19 22 11/04/2021 COMPR EHENS KARINE METAB OLIC PANEL AST 20 U/L 10-35 normal Not Available [address], [address], 11/04/2021 03:41:34 11/04/19 22 11/04/2021 COMPR EHENS KARINE METAB OLIC PANEL ALT 27 U/L 6-29 normal Not Available [address], [address], 11/04/2021 03:41:34 11/04/19 22 11/04/2021 LIPID PANEL , STAND ANALILIA chol/HDLC ratio 4.2 (calc ) <5.0 normal Not Available [address] [address] [place], [address], 11/04/2021 03:41:30 11/04/19 22 11/04/2021 LIPID PANEL , STAND ANALILIA cholesterol, total 156 mg/dL <200 normal Not Available [facility] [address], [address], 11/04/2021 03:41:30 11/04/19 22 11/04/2021 LIPID PANEL , STAND ANALILIA HDL cholesterol 37 mg/dL > or = 50 low Not Available [facility] [address], [address], 11/04/2021 03:41:30 11/04/19 22 11/04/2021 LIPID PANEL , STAND ANALILIA triglyceride s 216 mg/dL <150 high If a non-f astin g speci men was colle cted, consi daphne repea t trigl yceri de testi ng on a fasti ng speci men if clini loyd indic ated. Guanako pizarro et al. J. of Clin. Lipid ol. 2015; 9:129 -169. Not Available [address], [address], 11/04/2021 03:41:30 11/04/19 22 11/04/2021 LIPID PANEL , STAND ANALILIA LDL-choleste rol 88 mg/dL _(alberto c) normal Refer ence range : <100 Timo able range <100 mg/dL for prima ry preve ntion ; <70 mg/dL for patie nts with CHD or diabe tic patie nts with > or = 2 CHD risk facto rs. LDL-C is now calcu lated using the Amanda n-Hop kins calcu abelino n, which is a valid ated novel metho d felipa bauman r accur acy than the Fried julissa equat ion in the estim ation of LDL-C . Amanda foote SS et al. HATTIE. 2013; 310(1 6): 2061- 2068 (http ://ed ucati on.Anel coronado Farelogixs. com/f aq/FA Q164) Not Available [address] [address] [place], [address], 11/04/2021 03:41:30 11/04/1911/04/2021 LIPID PANEL , STAND ANALILIA non HDL cholesterol 119 mg/dL _(alberto c) <130 normal For patie nts with diabe edie plus 1 major ASCVD risk facto r, treat ing to a non-H DL-C goal of <100 mg/dL (LDL- C of <70 mg/dL ) is consi dered a thera peuti c optio n. Not Available [address] , [place], [address], 11/04/2021 03:41:30 05/11/2005/12/2022 COMPR EHENS KARINE METAB OLIC PANEL potassium 4.0 mmol/ L 3.5-5. 3 normal Not Available [address] , [place], [address], 05/12/2022 03:43:19 05/11/2005/12/2022 COMPR EHENS KARINE METAB OLIC PANEL glucose 110 mg/dL 65-99 high Fasti ng refer ence inter julius For someo ne witho ut known diabe edie, a gluco se value betwe en 100 and 125 mg/dL is consi stent with predi abete s and shoul d be confi rmed with a follo w-up test. Not Available [facility] [address] [address] [address], [place], [address], 05/12/2022 03:43:19 05/11/2005/12/2022 COMPR EHENS KARINE METAB OLIC PANEL urea nitrogen (BUN) 15 mg/dL 7-25 normal Not Available [facility] [address] [address] [place], [address], 05/12/2022 03:43:19 05/11/2005/12/2022 COMPR EHENS KARINE METAB OLIC PANEL creatinine 1.22 mg/dL 0.50-1 .03 high Not Available [address], [address], 05/12/2022 03:43:19 05/11/20 22 05/12/2022 COMPR EHENS KARINE METAB OLIC PANEL eGFR 53 mL/mi n/1.7 3m2 > or = 60 low The eGFR is based on the CKD-E PI 2020 equat ion. To calcu late the new eGFR from a previ ous Creat inine or Cysta tin C resul t, go to https ://dandre henry.rafiq webster.o gaurang/aisha pollack s/ kdoqi /gfr% 5Fcal culat or Not Available [address], [address], 05/12/2022 03:43:19 05/11/20 22 05/12/2022 COMPR EHENS KARINE METAB OLIC PANEL BUN/creatini ne ratio 12 (calc ) 6-22 normal Not Available [address], [address], 05/12/2022 03:43:19 05/11/20 22 05/12/2022 COMPR EHENS KARINE METAB OLIC PANEL sodium 140 mmol/ L 135-14 6 normal Not Available [address], [address], 05/12/2022 03:43:19 05/11/20 22 05/12/2022 COMPR EHENS KARINE METAB OLIC PANEL chloride 106 mmol/ L 98-110 normal Not Available [facility] [address], [address], 05/12/2022 03:43:19 05/11/20 22 05/12/2022 COMPR EHENS KARINE METAB OLIC PANEL carbon dioxide 26 mmol/ L 20-32 normal Not Available [address], [address], 05/12/2022 03:43:19 05/11/20 22 05/12/2022 COMPR EHENS KARINE METAB OLIC PANEL calcium 9.1 mg/dL 8.6-10 .4 normal Not Available [address], [address], 05/12/2022 03:43:19 05/11/20 22 05/12/2022 COMPR EHENS KARINE METAB OLIC PANEL protein, total 6.4 g/dL 6.1-8. 1 normal Not Available [address], [address], 05/12/2022 03:43:19 05/11/20 22 05/12/2022 COMPR EHENS KARINE METAB OLIC PANEL albumin 4.2 g/dL 3.6-5. 1 normal Not Available [address], [address], 05/12/2022 03:43:19 05/11/20 22 05/12/2022 COMPR EHENS KARINE METAB OLIC PANEL globulin 2.2 g/dL_ (calc ) 1.9-3. 7 normal Not Available [address], [address], 05/12/2022 03:43:19 05/11/20 22 05/12/2022 COMPR EHENS KARINE METAB OLIC PANEL AST 21 U/L 10-35 normal Not Available [address], [address], 05/12/2022 03:43:19 05/11/20 22 05/12/2022 COMPR EHENS KARINE METAB OLIC PANEL albumin/glob ulin ratio 1.9 (calc ) 1.0-2. 5 normal Not Available [address], [address], 05/12/2022 03:43:19 09/14/05/12/2022 COMPR EHENS KARINE METAB OLIC PANEL bilirubin, total 1.4 mg/dL 0.2-1. 2 high Not Available [address], [address], 05/12/2022 03:43:19 05/11/20 22 05/12/2022 COMPR EHENS KARINE METAB OLIC PANEL alkaline phosphatase 83 U/L 37-153 normal Not Available [facility] [address], [address], 05/12/2022 03:43:19 05/11/2005/12/2022 COMPR EHENS KARINE METAB OLIC PANEL ALT 25 U/L 6-29 normal Not Available [address], [address], 05/12/2022 03:43:19 05/11/2005/12/2022 LIPID PANEL , STAND ANALILIA cholesterol, total 156 mg/dL <200 normal Not Available [address], [address], 05/12/2022 03:43:19 05/11/2005/12/2022 LIPID PANEL , STAND ANALILIA HDL cholesterol 35 mg/dL > or = 50 low Not Available [address], [address], 05/12/2022 03:43:19 05/11/2005/12/2022 LIPID PANEL , STAND ANALILIA triglyceride s 313 mg/dL <150 high If a non-f astin g speci men was colle cted, consi daphne repea t trigl yceri de testi ng on a fasti ng speci men if clini loyd indic ated. Guanako pizarro et al. J. of Clin. Lipid ol. 2015; 9:129 -169. Not Available [address], [address], 05/12/2022 03:43:19 05/11/202022 LIPID PANEL , STAND ANALILIA LDL-choleste rol 83 mg/dL _(alberto c) normal Refer ence range : <100 Timo able range <100 mg/dL for prima ry preve ntion ; <70 mg/dL for patie nts with CHD or diabe tic patie nts with > or = 2 CHD risk facto rs. LDL-C is now calcu lated using the Amanda n-Hop kins calcu abelino n, which is a valid ated novel metho d provi ding merna r accur acy than the Fried julissa equat ion in the estim ation of LDL-C . Amanda foote SS et al. HATTIE. 2013; 310(1 9): 2061- 2068 (http ://ed ucati on.Mizzen+Main neerajGet-n-Post. com/f aq/FA Q164) Not Available [facility] [address] [place], [address], 05/12/2022 03:43:19 05/11/2005/12/2022 LIPID PANEL , STAND ANALILIA chol/HDLC ratio 4.5 (calc ) <5.0 normal Not Available [facility] [address] [address] [place], [address], 05/12/2022 03:43:19 05/11/2005/12/2022 LIPID PANEL , STAND ANALILIA non HDL cholesterol 121 mg/dL _(alberto c) <130 normal For patie nts with diabe edie plus 1 major ASCVD risk facto r, treat ing to a non-H DL-C goal of <100 mg/dL (LDL- C of <70 mg/dL ) is consi dered a thera peuti c optio n. Not Available [facility] [address] [place], [address], 05/12/2022 03:43:19 05/14/2005/17/2022 PROTE IN, TOTAL , 24 HOUR URINE (W/O CREAT ININE ) protein, total, 24 HR ur 64 mg/24 _h <150 normal URINE VOLUM E: 1600/ 24 Not Available [address], [address], 05/17/2022 13:11:39 05/14/2005/17/2022 CREAT ININE , 24 HOUR URINE creatinine, 24 hour urine 1.30 g/24_ h 0.50-2 .15 normal URINE VOLUM E: 1600/ 24 Not Available [address], [address], 05/17/2022 13:11:37 11/17/19 23 11/17/2022 LIPID PANEL , STAND ANALILIA cholesterol, total 177 mg/dL <200 normal Not Available [address], [address], 11/17/2022 03:49:10 11/17/19 23 11/17/2022 LIPID PANEL , STAND ANALILIA HDL cholesterol 38 mg/dL > or = 50 low Not Available [address], [address], 11/17/2022 03:49:10 11/17/19 23 11/17/2022 LIPID PANEL , STAND ANALILIA triglyceride s 294 mg/dL <150 high If a non-f astin g speci men was colle cted, consi daphne repea t trigl yceri de testi ng on a fasti ng speci men if clini loyd indic ated. Guanako pizarro et al. J. of Clin. Lipid ol. 2015; 9:129 -169. Not Available [address], [address], 11/17/2022 03:49:10 11/17/19 23 11/17/2022 LIPID PANEL , STAND ANALILIA LDL-choleste rol 100 mg/dL _(alberto c) high Refer ence range : <100 Itmo able range <100 mg/dL for prima ry preve ntion ; <70 mg/dL for patie nts with CHD or diabe tic patie nts with > or = 2 CHD risk facto rs. LDL-C is now calcu lated using the Amanda n-[facility] kins viral foote, which is a valid ated novel metho d aliciai fred bondste r accur acy than the Fried julissa equat ion in the estim ation of LDL-C . Amanda foote SS et al. HATTIE. 2013; 310(1 9): 2061- 2068 (http ://ed ucati on.TellmeGen. com/f aq/FA Q164) Not Available [facility] [address] [address] [place], [address], 11/17/2022 03:49:10 11/17/1911/17/2022 LIPID PANEL , STAND ANALILIA chol/HDLC ratio 4.7 (calc ) <5.0 normal Not Available [facility] [address] [address] [address], [place], [address], 11/17/2022 03:49:10 11/17/1911/17/2022 LIPID PANEL , STAND ANALILIA non HDL cholesterol 139 mg/dL _(alberto c) <130 high For patie nts with diabe edie plus 1 major ASCVD risk facto r, treat ing to a non-H DL-C goal of <100 mg/dL (LDL- C of <70 mg/dL ) is consi dered a thera peuti c optio n. Not Available [facility] [address] [address] [address] , [place], [address], 11/17/2022 03:49:10 11/17/1911/17/2022 COMPR EHENS KARINE METAB OLIC PANEL glucose 108 mg/dL 65-99 high Fasti ng refer ence inter julius For someo ne witho ut known diabe edie, a gluco se value betwe en 100 and 125 mg/dL is consi stent with predi abete s and shoul d be confi rmed with a follo w-up test. Not Available [facility] [address] [address] [address], [place], [address], 11/17/2022 03:49:10 11/17/1911/17/2022 COMPR EHENS KARINE METAB OLIC PANEL urea nitrogen (BUN) 15 mg/dL 7-25 normal Not Available [address], [address], 11/17/2022 03:49:10 11/17/1911/17/2022 COMPR EHENS KARINE METAB OLIC PANEL creatinine 1.19 mg/dL 0.50-1 .03 high Not Available [address], [address], 11/17/2022 03:49:10 11/17/1911/17/2022 COMPR EHENS KARINE METAB OLIC PANEL eGFR 55 mL/mi n/1.7 3m2 > or = 60 low The eGFR is based on the CKD-E PI 2020 equat ion. To calcu late the new eGFR from a previ ous Creat inine or Cysta tin C resul t, go to https ://dandre webster.marium merlos/aisha pollack [email or web address] kdoqi /gfr% 5Fcal culat or Not Available [address], [address], 11/17/2022 03:49:10 11/17/1911/17/2022 COMPR EHENS KARINE METAB OLIC PANEL BUN/creatini ne ratio 13 (calc ) 6-22 normal Not Available [address], [address], 11/17/2022 03:49:10 11/17/1911/17/2022 COMPR EHENS KARINE METAB OLIC PANEL sodium 141 mmol/ L 135-14 6 normal Not Available [address], [address], 11/17/2022 03:49:10 11/17/1911/17/2022 COMPR EHENS KARINE METAB OLIC PANEL potassium 4.1 mmol/ L 3.5-5. 3 normal Not Available [address], [address], 11/17/2022 03:49:10 11/17/1911/17/2022 COMPR EHENS KARINE METAB OLIC PANEL chloride 106 mmol/ L 98-110 normal Not Available [facility] [address] [place], [address], 11/17/2022 03:49:10 11/17/19 23 11/17/2022 COMPR EHENS KARINE METAB OLIC PANEL carbon dioxide 26 mmol/ L 20-32 normal Not Available [facility] [address] [place], [address], 11/17/2022 03:49:10 11/17/1911/17/2022 COMPR [id number]|2025-01-09 15:28:00|2025-01-09 15:28:00|XMS_ITS|WILIAN KHAN|External Medical Summaries|[id number]|" Clinical Summary Created on: January 09, 2025 Lacie Almanzar : 1970 Sex: Female Author Organization [facility] Address [address] [place] [id number] Care Team Providers Care Gallery Host Name Role Phone Chan Valdivia MD Primary Care Provider Chely Lujan NP Unavailable Allergies Active Allergy Reactions Criticality Noted Date [...] (10/08/2021): Added automatically from request for surgery [id number] Edema 11/26/2020 Irritable bowel syndrome 11/26/2020 Hypercholesterolemia 11/26/2020 Generalized osteoarthritis 11/26/2020 Calculus of bile duct with obstruction 1 Asthma 11/26/2020 Abnormal mammogram 11/26/2020 Breast mass 11/26/2020 Breast pain 11/26/2020 Resolved Problems Problem Noted Date Diagnosed Date Resolved Date Chronic interstitial cystitis 11/26/2020 02/24/2022 Anxiety disorder 06/27/2017 02/24/2022 Encounters Date Type Department Care Team Description 11/27/2024 Results Follow-Up [facility] Gastroenterology [facility] Medical Office Building [address] [place] [address] Anaya Macedo RN 11/21/2024 3:10 PM CDT - 11/21/2024 11:59 PM CDT Hospital Encounter [address] [address] Pancreatic cyst Discharge Disposition: Discharge to home or self care from Last 3 Months Surgical History Surgery Date Site/Laterality Comments SECTION 08/28/1993 - 08/27/1994 SINUS SURGERY CHOLECYSTECTOMY UTERINE FIBROID SURGERY HYSTERECTOMY OOPHORECTOMY BOWEL RESECTION X2 BLADDER SURGERY Medical History Medical History Date Comments Arthritis Asthma Pancreatitis Fatty liver Hyperlipidemia Social History Tobacco Use Types Packs/Day Years [...] on file Legal Sex Female 1:16 AM TRAFFIC SAFETY ADMINISTRATOR Gender Identity Female 11/19/2020 7:15 PM CDT Sexual Orientation Straight 11/19/2020 7: 15 PM CDT Obstetrics History Last Filed Vital Signs Vital Sign Reading Time Taken Comments Blood Pressure 120/78 09/16/2022 3:33 PM TRAFFIC SAFETY ADMINISTRATOR Pulse 85 09/16/2022 3:33 PM TRAFFIC SAFETY ADMINISTRATOR Temperature 36.2 C (97.1 F) 10/18/2021 11:33 AM TRAFFIC SAFETY ADMINISTRATOR Respiratory Rate 17 10/18/2021 12:58 PM TRAFFIC SAFETY ADMINISTRATOR Oxygen Saturation 99% 10/18/2021 12:58 PM TRAFFIC SAFETY ADMINISTRATOR Inhaled Oxygen Concentration - - Weight 85.3 kg (188 lb 0.8 oz) 11/12/2022 9:32 A M CDT Height 157.5 cm (5' 2 ) 11/12/2022 9:32 AM CDT Body Mass Index 34.4 11/12/2022 9:32 AM CDT Plan of Treatment Health Maintenance Due Date Last Done Comments Colon Cancer Screening-Colonoscopy 1970 Depression Screening 1970 Hepatitis C Screening 1970 Hepatitis B Screening 02/16/1988 Regular Well Visit/Exam 18-64 02/16/1988 Pneumococcal vaccine <65 (1 of 2 - PCV) 1989 Zoster Vaccine (1 of 2) 02/16/2020 Breast Cancer Screening-Mammogram 06/08/2023 022, 06/01/2021 Covid-19 Vaccine ( season) 04/28/202409/2020, 09/29/2020 DTaP/Tdap/Td Vaccine (2 - Td or Tdap) 02/16/2025 Influenza Vaccine (Season Ended) 2025 06/15/20 23 Procedures Procedure Name Priority Date/Time Associated Diagnosis [...] Giuliana Navarrete D.O. PS: PS Report ID: [id number] Reading Location: [place] [address] Procedure Note Giuliana Navarrtee DO - 11/26/2024 EXAM DESCRIPTION: MRI ABDOMEN [...] Giuliana Navarrete D.O. PS: PS Report ID: [id number] Reading Location: [id number] us Cole Hernandez MD IMG MRI PROCEDURES Final R esult * Diagnostic [...] Most Recently Relevant to Health Maintenance Insurance [facility] [employer] Advance Directives For more information, please contact: [phone] * Full Code (Latest Code Status on File) Date Activated Date Inactivated Comments 10/18/2021 11:31 AM 10/18/2021 5:22 PM Care Teams Gallery Host Relationship Specialty Start Date End Date Chan Valdivia MD [address] [facility] [address] [address] PCP - General Internal Medicine 10/26/20 Chely Lujan NP [address] [place] [place] [address] Nurse Practitioner Nurse Practitioner 06/03/21 "
== END 2025-01-09 15:10 | disposition home or self-care (01) ==
LOC: ANHIMG 15:25
PROVIDERS: PCP Internal Medicine; Visit Provider Obstetrics & Gynecology
DX: Z12.31 Encounter for screening mammogram for malignant neoplasm of breast (principal)
CPT/HCPCS: 77063; 77067